=== PATIENT | female | born 1950 | race Caucasian/White ===

== ENCOUNTER → 2017-06-16 | Outpatient (CLI) | payer MEDICARE ==
--- NOTE | 2017-06-16 13:11 | US ---
EXAMINATION TYPE: US venous doppler duplex LE LT DATE OF EXAM: 06/16/2017 12:53 PM COMPARISON: NONE CLINICAL HISTORY: 67-year-old female with M52.561 Pain in right leg. SIDE PERFORMED: right TECHNIQUE: The lower extremity deep venous system is examined utilizing real time linear array sonog miles with graded compression, doppler sonography and color-flow sonography. VESSELS IMAGED: External Iliac Vein (EIV) Common Femoral Vein Deep Femoral Vein Greater Saphenous Vein * Femoral Vein Popliteal Vein Small Saphenous Vein * Proximal Calf Veins (* superficial vessels) Right Leg: Negative for DVT Bakers cyst measuring 5.1 x 1.8 x 4.7cm Results given to Toshia at office immediately following exam. IMPRESSION: 1. No evidence for DVT within the left lower extremity imaged from the groin to the upper calf. 2. Moderate-sized Harmon cyst.
--- NOTE | 2017-06-22 12:49 | US ---
EXAMINATION TYPE: US venous doppler duplex LE RT DATE OF EXAM: 06/16/2017 12:53 PM COMPARISON: NONE CLINICAL HISTORY: 67-year-old female with M52.561 Pain in right leg. SIDE PERFORMED: Right TECHNIQUE: The lower extremity deep venous system is examined utilizing real time linear array sonography with graded compression, doppler sonography and color-flow sonography. VESSELS IMAGED: External Iliac Vein (EIV) Common Femoral Vein Deep Femoral Vein Greater Saphenous Vein * Femoral Vein Popliteal Vein Small Saphenous Vein * Proximal Calf Veins (* superficial vessels) Right Leg: Negative for DVT Bakers cyst measuring 5.1 x 1.8 x 4.7cm Results given to Toshia at office immediately following exam. IMPRESSION: 1. No evidence for DVT within the right lower extremity imaged from the groin to the upper calf. 2. Moderate-sized Harmon cyst. MTDD
== END | disposition home or self-care (01) ==
LOC: RADUSWWP 12:08
PROVIDERS: ATTEND Nurse Practitioner Family
DX: M71.22 Synovial cyst of popliteal space [Baker], left knee (principal); Z88.2 Allergy status to sulfonamides; Z88.8 Allergy status to other drugs, medicaments and biological substances

== ENCOUNTER → 2017-11-16 | Outpatient (CLI) | payer MEDICARE, OTHER ==
[2017-11-16 10:08] LABS: HCT 42.6 % (34.0-46.0); HGB 13.6 gm/dL (11.4-16.0); MCH 29.5 pg (25.0-35.0); MCV 92.3 fL (80.0-100.0); Mean Platelet Volume 8.1; Platelet Count 193 k/uL (150-450); RBC 4.61 m/uL (3.80-5.40); RDW 13.8 % (11.5-15.5); WBC 6.5 k/uL (3.8-10.6)
[2017-11-16 10:18] LABS: Appearance,Urine Clear (Clear); Bilirubin,Urine Negative (Negative); Blood,Urine Negative (Negative); Color,Urine Yellow; Glucose,Urine (UA) Negative (Negative); Hyaline Casts,Urine 1 /lpf (0-2); Ketones,Urine Negative (Negative); Leukocyte Esterase,Urine Trace (Negative); Mucus,Urine Rare /hpf; Nitrite,Urine Negative (Negative); PH, Urine 5.5 (5.0-8.0); Protein,Urine Negative (Negative); RBC,Urine <1 /hpf (0-5); Specific Gravity,Urine 1.017 (1.001-1.035); Squamous Epithelial Cell,Urine 1 /hpf (0-4); WBC,Urine 1 /hpf (0-5)
[2017-11-16 10:27] LABS: Prothrombin Time 9.6 sec (9.0-12.0)
[2017-11-16 10:29] LABS: Partial Thromboplastin Time 21.9 sec (22.0-30.0)
[2017-11-16 10:30] LABS: Albumin 3.9 g/dL (3.5-5.0); Calcium 9.5 mg/dL (8.4-10.2); Potassium 5.1 mmol/L (3.5-5.1); Total Bilirubin 0.4 mg/dL (0.2-1.3); Total Protein 6.2 g/dL (6.3-8.2)
== END | disposition home or self-care (01) ==
LOC: LABWHC1 09:29
PROVIDERS: ATTEND Orthopaedic Surgery
DX: Z01.812 Encounter for preprocedural laboratory examination (principal); Z79.01 Long term (current) use of anticoagulants; Z01.818 Encounter for other preprocedural examination
CPT/HCPCS: 36415; 80053; 81001; 85027; 85610; 85730; 87070

== ENCOUNTER 2017-11-23 00:23 | Observation (INO) | payer MEDICARE, OTHER ==
[2017-11-23] MEDS ORDERED: SODIUM CHLORIDE 0.9% 1,000 ML IV STA ×2 (01:09)
[2017-11-23] MEDS ORDERED: PANTOPRAZOLE 40 MG/10 ML VIAL IVP STA (01:09)
[2017-11-23] MEDS ORDERED: ONDANSETRON 4 MG/2 ML VIAL IVP STA (01:09)
[2017-11-23 01:23] LABS: Appearance,Urine Clear (Clear); Basophils # (A) 0.1 k/uL (0-0.2); Basophils % (A) 1 %; Bilirubin,Urine Negative (Negative); Blood,Urine Negative (Negative); Color,Urine Colorless; Eosinophils # (A) 0.2 k/uL (0-0.7); Eosinophils % (A) 3 %; Glucose,Urine (UA) Negative (Negative); HCT 42.3 % (34.0-46.0); HGB 13.7 gm/dL (11.4-16.0); Ketones,Urine Negative (Negative); Leukocyte Esterase,Urine Negative (Negative); Lymphocytes # (A) 1.8 k/uL (1.0-4.8); Lymphocytes % (A) 29 %; MCH 29.8 pg (25.0-35.0); MCHC 32.5 g/dL (31.0-37.0); MCV 91.7 fL (80.0-100.0); Mean Platelet Volume 7.9; Monocytes # (A) 0.5 k/uL (0-1.0); Monocytes % (A) 8 %; Neutrophils # (A) 3.6 k/uL (1.3-7.7); Neutrophils % (A) 58 %; Nitrite,Urine Negative (Negative); PH, Urine 6.5 (5.0-8.0); Platelet Count 175 k/uL (150-450); Protein,Urine Negative (Negative); RBC 4.61 m/uL (3.80-5.40); RDW 13.6 % (11.5-15.5); Specific Gravity,Urine 1.002 (1.001-1.035); Urobilinogen,Urine <2.0 mg/dL (<2.0); WBC 6.2 k/uL (3.8-10.6)
[2017-11-23 01:30] LABS: ALT 21 U/L (9-52); AST 28 U/L (14-36); Albumin 3.9 g/dL (3.5-5.0); Alkaline Phosphatase 67 U/L (38-126); Amylase 110 U/L (30-110); Anion Gap 13 mmol/L; Blood Urea Nitrogen 8 mg/dL (7-17); Calcium 9.3 mg/dL (8.4-10.2); Carbon Dioxide 28 mmol/L (22-30); Chloride 101 mmol/L (98-107); Glucose 125 mg/dL (74-99); Lipase 81 U/L (23-300); Partial Thromboplastin Time 22.2 sec (22.0-30.0); Potassium 3.5 mmol/L (3.5-5.1); Sodium 142 mmol/L (137-145); Total Bilirubin 0.5 mg/dL (0.2-1.3); Total Protein 6.2 g/dL (6.3-8.2)
--- NOTE | 2017-11-23 01:43 | XR ---
EXAMINATION TYPE: XR chest 2V DATE OF EXAM: 11/23/2017 COMPARISON: NONE HISTORY: Abdominal pain and vomiting TECHNIQUE: Frontal and lateral views of the chest are obtained. FINDINGS: Heart and mediastinum are normal. There is a 1 cm density over the left midlung that is pr obably calcified granuloma. Diaphragm is normal. There is no heart failure. IMPRESSION: Calcified granuloma. Normal heart. No heart failure.
--- NOTE | 2017-11-23 01:44 | XR ---
EXAMINATION TYPE: XR KUB DATE OF EXAM: 11/23/2017 COMPARISON: NONE HISTORY: Abdominal pain TECHNIQUE: 2 views FINDINGS: Bowel gas pattern is normal. There is no sign of intestinal obstruction or pneumoperitoneum . Fecal pattern is normal. There are clips from cholecystectomy. IMPRESSION: Nonacute abdomen.
[2017-11-23] MEDS ORDERED: MORPHINE SULFATE 4 MG/ML SYRINGE IVP STA (01:49)
[2017-11-23] MEDS ORDERED: RX INFO: IV CONTRAST WAS GIVEN 1 EACH MISC MISCELLANE PRN (03:11)
[2017-11-23] MEDS ORDERED: MORPHINE SULFATE 4 MG/ML SYRINGE IVP ONE (03:15)
--- NOTE | 2017-11-23 04:03 | CT ---
EXAM: CT Abdomen and Pelvis With Intravenous Contrast CLINICAL HISTORY: Abdominal pain TECHNIQUE: Axial computed tomography images of the abdomen and pelvis with intravenous contrast. CTDI is 19.1, 21.3 mGy and DLP is 1528.4 mGy-cm. This CT exam was performed using one or more of the following dose reduction techniques: automated exposure control, adjustment of the mA and/or kV according to patient size, and/or use of iterative reconstruction technique. COMPARISON: No relevant prior studies available. FINDINGS: Lung bases: Hematoma within the left lower lobe. Heart: Coronary artery calcifications. ABDOMEN: Liver: Tomographic density within the left hepatic lobe which is too small to characterize. Gallbladder and bile ducts: Mild intra-and extra hepatic bile duct dilatation likely second prior cholecystectomy. Pancreas: Unremarkable. Spleen: Calcified granuloma within the spleen. Adrenals: Unremarkable. Kidneys and ureters: Unremarkable. Stomach and bowel: Post surgical changes within the colon with mild wall thickening of the ascending and proximal transverse colon. Noninflamed colonic diverticulosis. Tiny fat-containing umbilical hernia with nonobstructed small bowel extending into the defect. PELVIS: Appendix: Appendix is likely surgically absent. Bladder: Small amount of gas within the urinary bladder likely secondary to recent instrumentation. Reproductive: 14 mm cyst in the left ovary. ABDOMEN and PELVIS: Intraperitoneal space: Unremarkable. Bones/joints: Anterolisthesis of L5 on S1 segment and bilateral L5 pars defect. No acute fracture. No dislocation. Soft tissues: See above. Vasculature: Vascular calcifications. No abdominal aortic aneurysm. Lymph nodes: Unremarkable. IMPRESSION: Post surgical changes within the colon with mild wall thickening of the ascending and proximal transverse colon. Findings may be secondary to under distention versus a nonspecific colitis.
--- NOTE | 2017-11-23 04:13 | ED ---
Abdominal Pain HPI - General Chief Complaint: Abdominal Pain Stated Complaint: Abdominal Pain Time Seen by Provider: 11/23/17 00:31 Source: patient, RN notes reviewed, old records reviewed Mode of arrival: ambulatory Limitations: no limitations - History of Present Illness Initial Comments: This is a 67-year-old female presents emergency room chief complaint of abdominal pain, nausea vomiting and diarrhea. The symptoms started Wednesday evening. She reports that her stools been dark. She states that her pain is mainly in the epigastric region. Denies any shortness of breath or chest pain. Patient relates that she has had no fevers or chills. She's had a history of colitis in the past. She states that she feels "lousy". Patient reports no urinary symptoms. - Related Data Home Medications Medication Instructions Recorded Confirmed Levothyroxine Sodium [Synthroid] 112 mcg PO QAM 08/20/14 11/23/17 Lisinopril [Zestril] 10 mg PO DAILY@1700 08/20/14 11/23/17 Multivitamins, Thera [Multivitamin] 1 tab PO DAILY 08/20/14 11/23/17 amLODIPine [Norvasc] 10 mg PO DAILY@1700 08/20/14 11/23/17 Aspirin [Adult Low Dose Aspirin EC] 81 mg PO DAILY 11/18/17 11/23/17 Atorvastatin [Lipitor] 10 mg PO QAM 11/18/17 11/23/17 Cholecalciferol [Vitamin D3] 1,000 unit PO DAILY 11/18/17 11/23/17 Garlic 1 tab PO DAILY 11/18/17 11/23/17 HYDROcodone/APAP 7.5-325MG [[place] 1 tab PO TID PRN 11/18/17 11/23/17 7.5-325] Metoprolol Succinate (ER) [Toprol 50 mg PO QAM 11/18/17 11/23/17 XL] Calcium Carbonate [Calcium] 600 mg PO BID 11/23/17 11/23/17 Allergies Allergy/AdvReac Type Severity Reaction Status Date / Time Sulfa (Sulfonamide Allergy Unknown Rash/Hives Verified 11/23/17 10:20 Antibiotics) Review of Systems ROS Statement: Those systems with pertinent positive or pertinent negative responses have been documented in the HPI. ROS Other: All systems not noted in ROS Statement are negative. Past Medical History Past Medical History: Hypertension, Osteoarthritis (OA) Additional Past Medical History / Comment(s): CARPAL TUNNEL , ARTHRITIS KNEES AND HANDS, NEUROPATHY, HX OF POLYPS. History of Any Multi-Drug Resistant Organisms: None Reported Past Surgical History: Bariatric Surgery, Section, Cholecystectomy Additional Past Surgical History / Comment(s): X2, ANNELIESE LEG NERVE SURGERY, GASTRIC BYPASS. Past Anesthesia/Blood Transfusion Reactions: No Reported Reaction, Motion Sickness Additional Past Anesthesia/Blood Transfusion Reaction / Comment(s): HX OF BLOOD TRANSFUSIONS=NO REACTION Past Psychological History: Depression Smoking Status: Former smoker Past Alcohol Use History: Occasional Past Drug Use History: None Reported - Past Family History Father Family Medical History: Diabetes Mellitus, Hypertension Mother Family Medical History: Hypertension, Musculoskeletal Disorder, Neurologic Disorder Additional Family Medical History / Comment(s): Mother had parkinson's disease. General Exam - General Exam Comments Initial Comments: 67-year-old female. Alert and oriented. No acute distress. Limitations: no limitations General appearance: alert, in no apparent distress Head exam: Present: atraumatic, normocephalic, normal inspection Eye exam: Present: normal appearance, PERRL, EOMI. Absent: scleral icterus, conjunctival injection, periorbital swelling ENT exam: Present: normal exam, mucous membranes moist Neck exam: Present: normal inspection. Absent: tenderness, meningismus, lymphadenopathy Respiratory exam: Present: normal lung sounds bilaterally. Absent: respiratory distress, wheezes, rales, rhonchi, stridor Cardiovascular Exam: Present: regular rate, normal rhythm, normal heart sounds. Absent: systolic murmur, diastolic murmur, rubs, gallop, clicks GI/Abdominal exam: Present: soft, tenderness (Epigastric tenderness.), normal bowel sounds. Absent: distended, guarding, rebound, rigid Extremities exam: Present: normal inspection, full ROM, normal capillary refill. Absent: tenderness, pedal edema, joint swelling, calf tenderness Back exam: Present: normal inspection Neurological exam: Present: alert, oriented X3, CN II-XII intact Psychiatric exam: Present: normal affect, normal mood Skin exam: Present: warm, dry, intact, normal color. Absent: rash Course Vital Signs 11/23/17 11/23/17 11/23/17 00:24 02:50 03:46 Temperature 97.7 F 97.9 F Pulse Rate 85 88 91 Pulse Rate [ Pulse Oximetery ] Respiratory 18 20 18 Rate Blood Pressure 180/86 151/88 185/91 Blood Pressure [Right Arm] O2 Sat by Pulse 97 96 94 L Oximetry 11/23/17 11/23/17 11/23/17 04:44 05:39 06:42 Temperature 98.3 F Pulse Rate 90 88 88 Pulse Rate [ Pulse Oximetery ] Respiratory 18 18 18 Rate Blood Pressure 163/93 153/90 176/96 Blood Pressure [Right Arm] O2 Sat by Pulse 96 98 95 Oximetry 11/23/17 11/23/17 11/23/17 06:58 07:28 08:30 Temperature 98.8 F 98.1 F Pulse Rate 89 91 91 Pulse Rate [ 87 Pulse Oximetery ] Respiratory 18 14 16 Rate Blood Pressure 145/87 158/87 158/87 Blood Pressure 179/90 [Right Arm] O2 Sat by Pulse 97 96 92 L Oximetry Medical Decision Making - Medical Decision Making This is a 67-year-old female presents emergency room chief complaint of abdominal pain, nausea vomiting and diarrhea. The symptoms started Wednesday evening. She reports that her stools been dark. She states that her pain is mainly in the epigastric region. Surgical hisotry arabella Rou in Y surgery. Patient given IV fluids and labs obtained. Continued to complainof significant pain. Labs were reviewed and unremarkable. CT scan obtained. Evidence of coliits or incomplete distension. Patient informed of these results, continues to complain of significant discomort and nausea. Discussed case with Dr. Colón , whom will make final disposition. - Lab Data Result diagrams: 11/23/17 00:45 11/23/17 00:45 Lab Results 11/23/17 11/23/17 11/23/17 Range/Units 00:45 00:45 00:45 WBC 6.2 (3.8-10.6) k/uL RBC 4.61 (3.80-5.40) m/uL Hgb 13.7 (11.4-16.0) gm/dL Hct 42.3 (34.0-46.0) % MCV 91.7 (80.0-100.0) fL MCH 29.8 (25.0-35.0) pg MCHC 32.5 (31.0-37.0) g/dL RDW 13.6 (11.5-15.5) % Plt Count 175 (150-450) k/uL Neutrophils % 58 % Lymphocytes % 29 % Monocytes % 8 % Eosinophils % 3 % Basophils % 1 % Neutrophils # 3.6 (1.3-7.7) k/uL Lymphocytes # 1.8 (1.0-4.8) k/uL Monocytes # 0.5 (0-1.0) k/uL Eosinophils # 0.2 (0-0.7) k/uL Basophils # 0.1 (0-0.2) k/uL PT 10.0 (9.0-12.0) sec INR 1.0 (<1.2) APTT 22.2 (22.0-30.0) sec Sodium 142 (137-145) mmol/L Potassium 3.5 (3.5-5.1) mmol/L Chloride 101 (98-107) mmol/L Carbon Dioxide 28 (22-30) mmol/L Anion Gap 13 mmol/L BUN 8 (7-17) mg/dL Creatinine 0.70 (0.52-1.04) mg/dL Est GFR (CKD-EPI)AfAm >90 (>60 ml/min/1.73 sqM) Est GFR (CKD-EPI)NonAf >90 (>60 ml/min/1.73 sqM) Glucose 125 H (74-99) mg/dL Calcium 9.3 (8.4-10.2) mg/dL Total Bilirubin 0.5 (0.2-1.3) mg/dL AST 28 (14-36) U/L ALT 21 (9-52) U/L Alkaline Phosphatase 67 (38-126) U/L Total Protein 6.2 L (6.3-8.2) g/dL Albumin 3.9 (3.5-5.0) g/dL Amylase 110 (30-110) U/L Lipase 81 (23-300) U/L Urine Color Urine Appearance (Clear) Urine pH (5.0-8.0) Ur Specific [place] (1.001-1.035) Urine Protein (Negative) Urine Glucose (UA) (Negative) Urine Ketones (Negative) Urine Blood (Negative) Urine Nitrite (Negative) Urine Bilirubin (Negative) Urine Urobilinogen (<2.0) mg/dL Ur Leukocyte Esterase (Negative) Stool Occult Blood (Negative) 11/23/17 11/23/17 Range/Units 00:45 00:45 WBC (3.8-10.6) k/uL RBC (3.80-5.40) m/uL Hgb (11.4-16.0) gm/dL Hct (34.0-46.0) % MCV (80.0-100.0) fL MCH (25.0-35.0) pg MCHC (31.0-37.0) g/dL RDW (11.5-15.5) % Plt Count (150-450) k/uL Neutrophils % % Lymphocytes % % Monocytes % % Eosinophils % % Basophils % % Neutrophils # (1.3-7.7) k/uL Lymphocytes # (1.0-4.8) k/uL Monocytes # (0-1.0) k/uL Eosinophils # (0-0.7) k/uL Basophils # (0-0.2) k/uL PT (9.0-12.0) sec INR (<1.2) APTT (22.0-30.0) sec Sodium (137-145) mmol/L Potassium (3.5-5.1) mmol/L Chloride (98-107) mmol/L Carbon Dioxide (22-30) mmol/L Anion Gap mmol/L BUN (7-17) mg/dL Creatinine (0.52-1.04) mg/dL Est GFR (CKD-EPI)AfAm (>60 ml/min/1.73 sqM) Est GFR (CKD-EPI)NonAf (>60 ml/min/1.73 sqM) Glucose (74-99) mg/dL Calcium (8.4-10.2) mg/dL Total Bilirubin (0.2-1.3) mg/dL AST (14-36) U/L ALT (9-52) U/L Alkaline Phosphatase (38-126) U/L Total Protein (6.3-8.2) g/dL Albumin (3.5-5.0) g/dL Amylase (30-110) U/L Lipase (23-300) U/L Urine Color Colorless Urine Appearance Clear (Clear) Urine pH 6.5 (5.0-8.0) Ur Specific [place] 1.002 (1.001-1.035) Urine Protein Negative (Negative) Urine Glucose (UA) Negative (Negative) Urine Ketones Negative (Negative) Urine Blood Negative (Negative) Urine Nitrite Negative (Negative) Urine Bilirubin Negative (Negative) Urine Urobilinogen <2.0 (<2.0) mg/dL Ur Leukocyte Esterase Negative (Negative) Stool Occult Blood Negative (Negative) 11/23/17 04:12 EKG performed at 0 50 she was normal sinus rhythm, normal EKG noted. Noticed this elevation or T-wave inversion. Ventricular rate 77 bpm.. Intervals 188. QRS ration 90. QT QTc is 46/459 ms. - Radiology Data Radiology results: report reviewed Disposition Clinical Impression: Abdominal pain Disposition: ADMITTED IP TO THIS HOSP Condition: Stable Is patient prescribed a controlled substance at d/c from ED?: No When asked, does pt state using other controlled substances?: No If prescribed controlled substance>3 days was MAPS reviewed?: No If opioid is for acute pain is fill amount 7 days or less?: No If Rx opioid, was Start Talking consent form obtained?: No Time of Disposition: 13:20
[2017-11-23] MEDS ORDERED: ONDANSETRON 4 MG/2 ML VIAL IVP PRN (06:53)
[2017-11-23] MEDS ORDERED: NALOXONE 0.4 MG/ML 1 ML VIAL IV PRN (06:53)
[2017-11-23] MEDS ORDERED: MORPHINE SULFATE 4 MG/ML SYRINGE IV STA (06:53)
[2017-11-23] MEDS ORDERED: HYDROcodone/APAP 7.5-325MG 1 EACH TAB PO PRN (06:55)
[2017-11-23] MEDS ORDERED: SODIUM CHLORIDE 0.9% 1,000 ML IV SCH (07:00)
[2017-11-23] MEDS ORDERED: ASPIRIN 81 MG PO SCH (09:00)
[2017-11-23] MEDS ORDERED: METOPROLOL SUCCINATE (ER) 50 MG TAB.ER.24H PO SCH (09:00)
[2017-11-23] MEDS ORDERED: FAMOTIDINE 20 MG TAB PO SCH (09:00)
[2017-11-23] MEDS ORDERED: LEVOTHYROXINE 112 MCG TAB PO ONE (09:00)
[2017-11-23] MEDS ORDERED: CHOLECALCIFEROL 1,000 UNIT TAB PO SCH (09:00)
[2017-11-23] MEDS ORDERED: ATORVASTATIN 10 MG TAB PO SCH (09:00)
--- NOTE | 2017-11-23 10:05 | P.CONS ---
History of Present Illness - Reason for Consult Consult date: 11/23/17 abdominal pain colitis Requesting physician: Chandra Raphael - History of Present Illness 67-year-old female with a history of Yoselyn-en-Y gastric bypass performed at [facility] several years ago presents with intractable nausea vomiting abdominal discomfort that started Wednesday. Patient had a whiskey-type drink on night but does not drink on a daily basis. Over the weekend she had persistent nausea with multiple nonbloody emesis a few looser stools yesterday. Dark but not black or red in color. Diffuse abdominal discomfort in the midepigastrium midabdomen. CT of the abdomen and pelvis reported some mild wall thickening of the ascending and proximal transverse colon may be secondary to under distention versus a nonspecific colitis. Denies fever chills hematemesis hematochezia melena. No weight loss. She is scheduled for knee surgery next Wednesday. Last emesis was earlier this morning after drinking some clear liquids. White count 6.2. Hemoglobin 13.7. Platelet 175. INR 1.0. BUN 8. Creatinine 0.7. LFTs lipase within normal limits. Stool occult blood negative. No aspirin and NSAIDs. Endoscopic history: 1. Colonoscopy July 2014 screening for neoplasia diverticulosis of the colon no evidence of diverticula or strictures polyps or cancer. 2. No recent EGD has been several years. Review of Systems Constitutional: Denies fever, chills, sweats, weight gain, or loss. HEENT: Negative for migraines, blurred vision or loss, earaches, drainage, tinnitus, oral mucosal lesions, dysphagia, or odynophagia. CARDIAC: Negative for chest pain, arrhythmias, or palpitation. RESPIRATORY: Negative for shortness of breath, hemoptysis, cough, or sputum production. GI: See HPI for pertinent findings. : Negative for hematuria, urgency, frequency, polyuria, or dysuria. GYNc: Negative vaginal discharge. MUSCULOSKELETAL: Negative for muscle aches, swelling, arthritis, and arthralgias. NEUROLOGIC: Negative for stroke or TIA. ENDOCRINE: Negative for thyroid problems. SKIN: Negative for rash or itching. PSYCHIATRIC: Negative history for depression and anxiety Past Medical History Past Medical History: Hyperlipidemia, Hypertension, Osteoarthritis (OA), Thyroid Disorder Additional Past Medical History / Comment(s): Diverticular disease, neuropathy bilateral hands and feet, NIDDM type II on oral medications until bariatric surgery with weight loss, hypothyroid, past gout in feet, bilateral carpal tunnel syndrome, arthritis bilateral knees and hands-L knee worse and is to have L total knee replacement next week. History of Any Multi-Drug Resistant Organisms: None Reported Past Surgical History: Bariatric Surgery, Section, Cholecystectomy Additional Past Surgical History / Comment(s): Yoselyn-en- Y, surgery on bilateral legs to release nerves, colonoscopies with last one done 2014, x 2 Past Anesthesia/Blood Transfusion Reactions: No Reported Reaction, Motion Sickness Additional Past Anesthesia/Blood Transfusion Reaction / Comm: HX OF BLOOD TRANSFUSIONS=NO REACTION Smoking Status: Former smoker - Past Family History Father Family Medical History: Diabetes Mellitus, Hypertension Mother Family Medical History: Hypertension, Musculoskeletal Disorder, Neurologic Disorder Additional Family Medical History / Comment(s): Mother had parkinson's disease. Medications and Allergies Home Medications Medication Instructions Recorded Confirmed Type Levothyroxine Sodium [Synthroid] 112 mcg PO QAM 08/20/14 11/23/17 History Lisinopril [Zestril] 10 mg PO HS 08/20/14 11/23/17 History Multivitamins, Thera [Multivitamin] 1 each PO DAILY 08/20/14 11/23/17 History amLODIPine [Norvasc] 10 mg PO HS 08/20/14 11/23/17 History Aspirin [Adult Low Dose Aspirin EC] 81 mg PO DAILY 11/18/17 11/23/17 History Atorvastatin [Lipitor] 10 mg PO QAM 11/18/17 11/23/17 History Cholecalciferol [Vitamin D3] 1,000 unit PO DAILY 11/18/17 11/23/17 History Garlic 1 tab PO DAILY 11/18/17 11/23/17 History HYDROcodone/APAP 7.5-325MG [[place] 1 tab PO Q8H PRN 11/18/17 11/23/17 History 7.5-325] Metoprolol Succinate (ER) [Toprol 50 mg PO QAM 11/18/17 11/23/17 History XL] Allergies Allergy/AdvReac Type Severity Reaction Status Date / Time Sulfa (Sulfonamide Allergy Unknown Rash/Hives Verified 11/18/17 14:23 Antibiotics) Physical Exam Vitals: Vital Signs Temp Pulse Resp BP Pulse Ox 11/23/17 08:30 98.8 F 91 14 158/87 96 11/23/17 07:28 98.8 F 91 14 158/87 96 11/23/17 06:58 89 18 145/87 97 11/23/17 06:42 88 18 176/96 95 11/23/17 05:39 98.3 F 88 18 153/90 98 11/23/17 04:44 90 18 163/93 96 11/23/17 03:46 97.9 F 91 18 185/91 94 L 11/23/17 02:50 88 20 151/88 96 11/23/17 00:24 97.7 F 85 18 180/86 97 Intake and Output 11/22/17 11/23/17 11/23/17 22:59 06:59 14:59 Intake Total 1800 Balance 1800 Intake: Amount of Fluid Infused ( 1800 ml) Other: Voiding Method Toilet Weight 92.986 kg General appearance: The patient is alert, oriented, in no acute distress. HET: Head is normocephalic and atraumatic. Pupils are equal and reactive. Oropharynx is clear without lesions. Neck: Supple without lymphadenopathy. Trachea midline. Heart: S1 S2. Regular rate and rhythm. Lungs: No crackles or wheezes are heard. Abdomen: Soft, mild midepigastric tenderness, nondistended with bowel sounds. No peritoneal signs. No palpable organomegaly or masses. Extremities: Normal skin color and turgor. No cyanosis, rash, ulceration, clubbing, or edema. Radial and pedal pulses are 2/4 bilaterally. Neurological: No focal deficits. Strength and sensation are grossly intact. Results CBC & Chem 7: 11/23/17 00:45 11/23/17 00:45 Labs: Abnormal Lab Results - Last 24 Hours (Table) 11/23/17 Range/Units 00:45 Glucose 125 H (74-99) mg/dL Total Protein 6.2 L (6.3-8.2) g/dL CT scan - abdomen: report reviewed (Dr. Valdez) Assessment and Plan (1) Abdominal pain Narrative/Plan: Intractable nausea vomiting abdominal pain 4 days possible gastritis possible peptic ulcer disease with an underlying history of Yoselyn-en-Y gastric bypass. Current Visit: Yes Status: Acute Code(s): R10.9 - UNSPECIFIED ABDOMINAL PAIN SNOMED Code(s): 98331904 Plan: 1. EGD. 2. Protonix 40 mg daily. 3. She was advised to abstain from alcohol. 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 The patient has indicated understanding and acceptance of the risks and procedures discussed. Thank you for this kind referral and the opportunity to participate in the care of your patient. This consultation was discussed with Dr. Valdez. The impression and plan of care have been directed as dictated.
[2017-11-23] MEDS ORDERED: MULTIVITAMINS, THERA 1 EACH TAB PO SCH (12:00)
[2017-11-23] MEDS: MORPHINE SULFATE 4 MG/ML SYRINGE IV PRN ×2 (12:12→15:23)
[2017-11-23 13:16] VITALS: BMI 33.0
[2017-11-23] MEDS ORDERED: LIDOCAINE 1% INJ 10MG/ML (20 ML MDV) ONE (14:32)
[2017-11-23] MEDS ORDERED: MIDAZOLAM 2 MG/2 ML VIAL ONE (14:32)
[2017-11-23] MEDS ORDERED: PROPOFOL 10 MG/ML 20 ML VIAL IV ONE (14:32)
[2017-11-23] MEDS ORDERED: IV FLUID CONTINUATION 950 ML IV ONE (14:34)
--- NOTE | 2017-11-23 15:02 | P.PCN ---
Date of Procedure: 11/23/17 Procedure(s) Performed: Procedure: Esophagogastroduodenoscopy and biopsy. Preoperative diagnosis: Nausea and vomiting. Postoperative diagnosis: 1. S/P Yoselyn-en-Y gastric bypass surgery with no obvious pathology. 2. Biopsies obtained from the gastric remnant and esophagus. Preparation sedation: Was provided by anesthesia. 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 Patient had a whiskey-type drink the day before and she does not drink on a daily basis. For the following two days she had persistent nausea with multiple nonbloody emesis a few looser stools the day before admission. Dark but not black or red in color. Diffuse abdominal discomfort in the mid-epigastrium mid-abdomen. CT of the abdomen and pelvis reported some mild wall thickening of the ascending and proximal transverse colon may be secondary to under distention versus a nonspecific colitis. Denies fever, chills, hematemesis, hematochezia or melena. No weight loss. She is scheduled for knee surgery the week from today. Last emesis was earlier this morning after drinking some clear liquids. White count 6.2. Hemoglobin 13.7. Platelet 175. INR 1.0. BUN 8. Creatinine 0.7. LFTs lipase within normal limits. Stool occult blood negative. No aspirin and NSAIDs. Endoscopic history: 1. Colonoscopy July 2014 screening for neoplasia diverticulosis of the colon no evidence of diverticula or strictures polyps or cancer. 2. No recent EGD, last has been several years. The details are summarized in the history and physical and dictated consultation and progress notes. Procedure: With the patient on her left lateral decubitus position and after informed consent and adequate sedation, I passed the Olympus-GIF 160 video upper endoscope through the cricopharyngeus down the esophagus. GE junction was around 38 cm from the incisors. The esophagus did not show any obvious esophagitis or complicated reflux disease or other pathology. The endoscope was then passed into the gastric remnant. The patient had prior gastric bypass surgery. No obvious abnormalities were seen in the gastric remnant. The small intestine was examined for significant distance with no abnormal findings noted. I obtained biopsies from the gastric remnant and esophagus before the endoscope was withdrawn. The patient tolerated the procedure well. Plan: The patient was reassured. Will allow clear liquid diet and make further plans based on her course. Will continue to follow with you with interest.
[2017-11-23 15:20] VITALS: BP 144/75; PULSE 75; RESP 18; TEMP 98.9
--- NOTE | 2017-11-23 16:14 | P.HPIM ---
History of Present Illness 67-year-old female with history of Yoselyn-en-Y bypass surgery came in with complaints of left upper quadrant abdominal pain sharp in nature 8/10 in severity now for stress-induced in severity. CAT scan of the abdomen was obtained which showed some nonspecific colitis changes which are not impressive. These changes are found in the ascending colon and proximal transverse colon although her symptoms are not in the above-mentioned and stomach site her symptoms are in the left upper quadrant. Patient underwent upper GI endoscopy which did not show any significant abnormality. Patient is cleared for discharge from gastroenterology perspective. Etiology of her abdominal pain is unknown her abdominal pain did improve patient was asked to take as needed Tylenol for pain. Will be discharged to follow with primary care physician as an outpatient. Lipase is essentially within normal limits. Patient had nonbloody emesis and few loose stools which completely resolved at this time. Review of Systems REVIEW OF SYSTEMS: CONSTITUTIONAL: No fever, no malaise, no fatigue. HEENT: No recent visual problems or hearing problems. Denied any sore throat. CARDIOVASCULAR: No chest pain, orthopnea, PND, no palpitations, no syncope. PULMONARY: No shortness of breath, no cough, no hemoptysis. GASTROINTESTINAL: No diarrhea, no nausea, no vomiting, NEUROLOGICAL: No headaches, no weakness, no numbness. HEMATOLOGICAL: Denies any bleeding or petechiae. GENITOURINARY: Denies any burning micturition, frequency, or urgency. MUSCULOSKELETAL/RHEUMATOLOGICAL: Denies any joint pain, swelling, or any muscle pain. ENDOCRINE: Denies any polyuria or polydipsia. The rest of the 14-point review of systems is negative. Past Medical History Past Medical History: Hypertension, Osteoarthritis (OA) Additional Past Medical History / Comment(s): CARPAL TUNNEL , ARTHRITIS KNEES AND HANDS, NEUROPATHY, HX OF POLYPS. History of Any Multi-Drug Resistant Organisms: None Reported Past Surgical History: Bariatric Surgery, Section, Cholecystectomy Additional Past Surgical History / Comment(s): X2, ANNELIESE LEG NERVE SURGERY, GASTRIC BYPASS. Past Anesthesia/Blood Transfusion Reactions: No Reported Reaction, Motion Sickness Additional Past Anesthesia/Blood Transfusion Reaction / Comment(s): HX OF BLOOD TRANSFUSIONS=NO REACTION Past Psychological History: Depression Smoking Status: Former smoker Past Alcohol Use History: Occasional Past Drug Use History: None Reported - Past Family History Father Family Medical History: Diabetes Mellitus, Hypertension Mother Family Medical History: Hypertension, Musculoskeletal Disorder, Neurologic Disorder Additional Family Medical History / Comment(s): Mother had parkinson's disease. Medications and Allergies Home Medications Medication Instructions Recorded Confirmed Type Levothyroxine Sodium [Synthroid] 112 mcg PO QAM 08/20/14 11/23/17 History Lisinopril [Zestril] 10 mg PO DAILY@1700 08/20/14 11/23/17 History Multivitamins, Thera [Multivitamin] 1 tab PO DAILY 08/20/14 11/23/17 History amLODIPine [Norvasc] 10 mg PO DAILY@1700 08/20/14 11/23/17 History Aspirin [Adult Low Dose Aspirin EC] 81 mg PO DAILY 11/18/17 11/23/17 History Atorvastatin [Lipitor] 10 mg PO QAM 11/18/17 11/23/17 History Cholecalciferol [Vitamin D3] 1,000 unit PO DAILY 11/18/17 11/23/17 History Garlic 1 tab PO DAILY 11/18/17 11/23/17 History HYDROcodone/APAP 7.5-325MG [[place] 1 tab PO TID PRN 11/18/17 11/23/17 History 7.5-325] Metoprolol Succinate (ER) [Toprol 50 mg PO QAM 11/18/17 11/23/17 History XL] Calcium Carbonate [Calcium] 600 mg PO BID 11/23/17 11/23/17 History Allergies Allergy/AdvReac Type Severity Reaction Status Date / Time Sulfa (Sulfonamide Allergy Unknown Rash/Hives Verified 11/23/17 10:20 Antibiotics) Physical Exam Vitals: Vital Signs Temp Pulse Pulse Resp BP BP Pulse Ox 11/23/17 15:13 98.9 F 75 18 144/75 96 11/23/17 11:05 135/82 11/23/17 08:30 98.1 F 91 87 16 158/87 179/90 92 L 11/23/17 07:28 98.8 F 91 14 158/87 96 11/23/17 06:58 89 18 145/87 97 11/23/17 06:42 88 18 176/96 95 11/23/17 05:39 98.3 F 88 18 153/90 98 11/23/17 04:44 90 18 163/93 96 11/23/17 03:46 97.9 F 91 18 185/91 94 L 11/23/17 02:50 88 20 151/88 96 11/23/17 00:24 97.7 F 85 18 180/86 97 Intake and Output 11/23/17 11/23/17 11/23/17 06:59 14:59 22:59 Intake Total 2049 Balance 2049 Intake: IV 250 Amount of Fluid Infused ( 1800 ml) Other: Voiding Method Toilet # Voids 2 # Bowel Movements 0 Weight 92.986 kg 92.986 kg PHYSICAL EXAMINATION: GENERAL: The patient is alert and oriented x3, not in any acute distress. Well developed, well nourished. HEENT: Pupils are round and equally reacting to light. EOMI. No scleral icterus. No conjunctival pallor. Normocephalic, atraumatic. No pharyngeal erythema. No thyromegaly. CARDIOVASCULAR: S1 and S2 present. No murmurs, rubs, or gallops. PULMONARY: Chest is clear to auscultation, no wheezing or crackles. ABDOMEN: Soft, nontender, nondistended, normoactive bowel sounds. No palpable organomegaly. MUSCULOSKELETAL: No joint swelling or deformity. EXTREMITIES: No cyanosis, clubbing, or pedal edema. NEUROLOGICAL: Gross neurological examination did not reveal any focal deficits. SKIN: No rashes. Results CBC & Chem 7: 11/23/17 00:45 11/23/17 00:45 Labs: Abnormal Lab Results - Last 24 Hours (Table) 11/23/17 Range/Units 00:45 Glucose 125 H (74-99) mg/dL Total Protein 6.2 L (6.3-8.2) g/dL Thrombosis Risk Factor Assmnt - Choose All That Apply Any of the Below Risk Factors Present?: Yes Each Factor Represents 1 point: Obesity (BMI >25) Other Risk Factors: Yes Each Risk Factor Represents 2 Points: Age 61-74 years Other congenital or acquired thrombophilia - If yes, enter type in comment: No Thrombosis Risk Factor Assessment Total Risk Factor Score: 3 Thrombosis Risk Factor Assessment Level: Moderate Risk Assessment and Plan Plan: -Abdominal pain etiology unclear upper GI endoscopy did not show any gastritis. Patient will be discharged today her symptoms improved patient will follow with PCP and gastroneurology as an outpatient -Hypertension -History of bariatric surgery in the past -Depression and seasonal affective disorder -Hyperlipidemia -Hypothyroidism For her chronic medical problems patient will be resumed and continued on home medications without any changes
--- NOTE | 2017-11-23 16:15 | P.DS ---
Providers Date of admission: 11/23/17 06:53 Attending physician: Chandra Raphael Consults: 11/23/17 06:56 Consult Physician Routine Consulting Provider: Corbin Valdez Consult Reason/Comments: abdominal pain/colitis Do you want consulting provider notified?: Yes Primary care physician: Imelda Sharma [facility] Course: Please refer to my HPI Patient Condition at Discharge: Stable Plan - Discharge Summary Discharge Rx Participant: No New Discharge Prescriptions: No Action amLODIPine [Norvasc] 10 mg PO DAILY@1700 Multivitamins, Thera [Multivitamin] 1 tab PO DAILY Lisinopril [Zestril] 10 mg PO DAILY@1700 Levothyroxine Sodium [Synthroid] 112 mcg PO QAM Metoprolol Succinate (ER) [Toprol XL] 50 mg PO QAM HYDROcodone/APAP 7.5-325MG [[place] 7.5-325] 1 tab PO TID PRN PRN Reason: Pain Garlic 1 tab PO DAILY Cholecalciferol [Vitamin D3] 1,000 unit PO DAILY Atorvastatin [Lipitor] 10 mg PO QAM Aspirin [Adult Low Dose Aspirin EC] 81 mg PO DAILY Calcium Carbonate [Calcium] 600 mg PO BID Discharge Medication List Levothyroxine Sodium [Synthroid] 112 mcg PO QAM 08/20/14 [History] Lisinopril [Zestril] 10 mg PO DAILY@1700 08/20/14 [History] Multivitamins, Thera [Multivitamin] 1 tab PO DAILY 08/20/14 [History] amLODIPine [Norvasc] 10 mg PO DAILY@1700 08/20/14 [History] Aspirin [Adult Low Dose Aspirin EC] 81 mg PO DAILY 11/18/17 [History] Atorvastatin [Lipitor] 10 mg PO QAM 11/18/17 [History] Cholecalciferol [Vitamin D3] 1,000 unit PO DAILY 11/18/17 [History] Garlic 1 tab PO DAILY 11/18/17 [History] HYDROcodone/APAP 7.5-325MG [[place] 7.5-325] 1 tab PO TID PRN 11/18/17 [History] Metoprolol Succinate (ER) [Toprol XL] 50 mg PO QAM 11/18/17 [History] Calcium Carbonate [Calcium] 600 mg PO BID 11/23/17 [History] Follow up Appointment(s)/Referral(s): Imelda Beckham III, MD [Primary Care Provider] - 3 Days Discharge Disposition: HOME SELF-CARE
[2017-11-23] MEDS ORDERED: LISINOPRIL 10 MG TAB PO SCH (21:00)
[2017-11-23] MEDS ORDERED: amLODIPine 10 MG TAB PO SCH (21:00)
[2017-11-24] MEDS ORDERED: LEVOTHYROXINE 112 MCG TAB PO SCH (06:30)
[2017-11-24] MEDS ORDERED: PANTOPRAZOLE 40 MG TABLET PO SCH (07:30)
== END 2017-11-23 16:31 | disposition home or self-care (01) ==
LOC: EC 00:23 → 4MS4W 06:53
PROVIDERS: ADMIT Hospitalist; ATTEND Hospitalist
DX: R10.13 Epigastric pain (principal); R11.2 Nausea with vomiting, unspecified; R19.7 Diarrhea, unspecified; I10 Essential (primary) hypertension; F32.9 Major depressive disorder, single episode, unspecified; E78.5 Hyperlipidemia, unspecified; E03.9 Hypothyroidism, unspecified; F39 Unspecified mood [affective] disorder; M19.90 Unspecified osteoarthritis, unspecified site; M19.042 Primary osteoarthritis, left hand; M19.041 Primary osteoarthritis, right hand; M17.0 Bilateral primary osteoarthritis of knee; G62.9 Polyneuropathy, unspecified; Z98.84 Bariatric surgery status; Z86.010 Personal history of colon polyps; Z90.49 Acquired absence of other specified parts of digestive tract; Z88.2 Allergy status to sulfonamides; Z79.82 Long term (current) use of aspirin; Z79.899 Other long term (current) drug therapy; Z79.890 Hormone replacement therapy; Z87.891 Personal history of nicotine dependence; Z83.3 Family history of diabetes mellitus; Z82.0 Family history of epilepsy and other diseases of the nervous system; E66.9 Obesity, unspecified; Z68.33 Body mass index [BMI] 33.0-33.9, adult; Z87.19 Personal history of other diseases of the digestive system
CPT/HCPCS: 99285; 96374; 96375 ×3; 96376 ×4; 96361 ×8; 36415; 93005; 88305; 80053; 82150; 83690; 85025; 85610; 85730; 82272; 81003; 71046; 74018; 74177; 43239; G0378; J2250; J2270; J2405; J2001; J2704; C9113; Q9967

== ENCOUNTER 2017-11-30 10:37 | Inpatient (IN) | payer MEDICARE ==
[~2017-11-30 10:37] MED LIST: ACETAMINOPHEN TAB 500 MG TAB PO ONE; DEXAMETHASONE SOD PHOSPHATE 10 MG/ML 1 ML VIAL IV ONE; HYDROmorphone 0.5 MG/0.5 ML SYRINGE IVP PRN; MELOXICAM 7.5 MG TAB PO ONE; MORPHINE SULFATE 2 MG/ML SYRINGE IV PRN; ONDANSETRON 4 MG/2 ML VIAL IVP ONE; ONDANSETRON 4 MG/2 ML VIAL IVP PRN; ROPIVACAINE 246.25 MG, EPINEPHrine 0.5 MG, KETOROLAC 30 MG, cloNIDine HCL/PF 80 MCG, WA... MISCELLANE ONE; TRANEXAMIC ACID 1,000 MG in SODIUM CHLORIDE 0.9% 50 ML IVPB ONE; VANCOMYCIN 1,500 MG in SODIUM CHLORIDE 0.9% 250 ML IVPB NR; ceFAZolin IN SWFI 2 GM/20 ML SYRINGE IVP ONE
[2017-11-30] MEDS: LACTATED RINGERS 1,000 ML IV SCH ×2 (11:18→20:12)
[2017-11-30] MEDS ORDERED: LIDOCAINE 1% 20 ML VIAL (10MG/ML) FOR IV START INTRADERMA ONE (11:19)
[2017-11-30] MEDS ORDERED: ONDANSETRON 4 MG/2 ML VIAL ONE (11:33)
[2017-11-30 12:07] LABS: Glucose,Whole Blood 123 mg/dL (75-99)
[2017-11-30] MEDS ORDERED: MIDAZOLAM 2 MG/2 ML VIAL ONE ×2 (12:25→13:40)
[2017-11-30] MEDS ORDERED: fentaNYL (PF) 50 MCG/ML 2 ML AMP ONE ×2 (12:26→13:40)
[2017-11-30] MEDS ORDERED: fentaNYL (PF) 50 MCG/ML 2 ML AMP IVP ONE (12:44)
[2017-11-30] MEDS ORDERED: ROPIVACAINE 1,100 MG, SODIUM CHLORIDE 0.9% 330 ML MISCELLANE PRN ×2 (13:06)
--- NOTE | 2017-11-30 13:08 | P.ONQ ---
Anesthesiology Proc Note - PNB - Peripheral Nerve Block Performed Left Adductor Canal Infusion Time Out Performed: Yes Procedure Start Time: 12:43 Procedure Stop Time: 12:57 Indication: Requested by physician Specifically requested for management of pain by : Roland Coleman Sedation Type: Sedate with meaningful contact maintained Preparation: Sterile Prep Position: Supine Catheter: Indwelling Needle Types: Other (see comment) (pujunk) Needle Size: 100mm (4") Needle Gauge: 20 Technique: Ultrasound Injectate: 0.5% Ropivacaine (see comment for volume) (20) Blood Aspirated: No Pain Paresthesia on Injection Noted: No Resistance on Injection: Normal Events: Uneventful and Well Tolerated
[2017-11-30] MEDS ORDERED: SODIUM CHLORIDE 0.9% 100 ML BAG ONE (13:40)
[2017-11-30] MEDS ORDERED: diphenhydrAMINE 50 MG/ML 1 ML VIAL ONE (13:40)
[2017-11-30] MEDS ORDERED: TRANEXAMIC ACID 1,000 MG/10 ML VIAL ONE (13:40)
[2017-11-30] MEDS ORDERED: ONDANSETRON 4 MG/2 ML VIAL IVP PRN (13:43)
[2017-11-30] MEDS ORDERED: HYDROcodone/APAP 7.5-325MG 1 EACH TAB PO PRN (13:43)
[2017-11-30] MEDS ORDERED: MAGNESIUM HYDROXIDE 2,400 MG/10 ML CUP PO PRN (13:43)
[2017-11-30] MEDS ORDERED: HYDROmorphone 0.5 MG/0.5 ML SYRINGE IVP PRN ×4 (13:43)
[2017-11-30] MEDS ORDERED: DIAZEPAM 5 MG TAB PO PRN ×2 (13:43)
[2017-11-30] MEDS ORDERED: NA PHOS,M-B/NA PHOS,DI-BA 133 ML ENEMA RECTAL PRN (13:43)
[2017-11-30] MEDS ORDERED: BISACODYL 10 MG SUPP RECTAL PRN (13:43)
[2017-11-30] MEDS ORDERED: NALOXONE 0.4 MG/ML 1 ML VIAL IV PRN (13:43)
[2017-11-30] MEDS ORDERED: ceFAZolin 3,000 MG in SODIUM CHLORIDE 0.9% IRRIGATIO 3,000 ML IRRIGATION ONE (14:40)
--- NOTE | 2017-11-30 14:54 | P.OP ---
Date of Procedure: 11/30/17 Preoperative Diagnosis: Severe osteoarthritis left knee Postoperative Diagnosis: Severe osteoarthritis left knee Procedure(s) Performed: Left total knee arthroplasty Implants: [employer]hew Oxinium femoral component size 5, left Bush [employer]hew Ashley II left nonporous tibial baseplate size 4 [employer]hew size 11 mm Legion XLPE dished articular insert, size 3-4 [employer]hew Ashley II resurfacing patellar component, 32 mm All components were cemented using Clementina bone cement.. The articulation is Oxinium on polyethylene. Anesthesia: spinal Surgeon: Roland Coleman Antenna Design Engineer #1: Lilo Butler Estimated Blood Loss (ml): 50 Pathology: other (Bone and cartilage) Condition: stable Disposition: PACU Indications for Procedure: After failure of conservative treatment we discussed the surgical and nonsurgical treatment options at length. Patient wishes to proceed with a total knee arthroplasty. Complications specific to this procedure were discussed at length, including but not limited to infection, bleeding, stiffness , and nerve injury. Patient is aware of all these complications and informed consent was obtained Operative Findings: The operative findings are consistent with severe osteoarthritis of the left knee Description of Procedure: Patient was seen in the preoperative area consent was reviewed and operative site was marked with a skin marker. An adductor canal pain catheter was placed by anesthesia in the preoperative area. Patient was then brought to the operating room and given preoperative antibiotics intravenously. A spinal anesthetic was administered by the anesthesia department. A tourniquet was placed on the upper thigh and the lower extremity was prepped and draped in usual sterile fashion. A gram of transexamic acid was given. A universal timeout was then performed which confirmed the patient's name, surgical site, ALLERGIES, and consent. The lower extremity was then exsanguinated and tourniquet was inflated to 250 mmHg. A standard and anterior midline approach to the knee was performed. The skin and subcutaneous tissue was dissected down to the patellar tendon. A medial parapatellar arthrotomy was then performed. The knee was then extended, the patellar was everted, and the knee was again flexed. Anterior horns of both menisci were excised, and a release was performed to the posterior medial aspect of the knee. On gross visual inspection, there was complete loss of articular cartilage in the medial and patellofemoral joint spaces. There was also significant cartilage damage in the lateral compartment. There were multiple periarticular osteophytes which were then removed with a Ronguer. The femoral canal was then opened with the appropriate drill, and the intramedullary femoral cutting guide was then placed and set for 4 of valgus. The distal femoral cutting block was then pinned in place, and the distal femur was then cut. The cutting block was then removed and the cut was checked for flatness. Next, the sizing guide was then placed and set for 3 external rotation based off of the epicondylar axis and Whitesides line. After the femur was sized, the appropriate 4-in-1 cutting block was then pinned in place. The anterior condyles were cut without notching. The posterior and chamfer cuts were performed while protecting the collateral ligaments. The cutting block was then removed, and the femoral canal was plugged with autologous bone. Attention was then directed to the tibia. The remaining ACL was removed with a Ronguer, and the tibia was then gently subluxed forward with a large bent knee retractor. Any remaining menisci was excised. The posterior lateral corner was cauterized in order to cauterize the lateral geniculate artery. The extra medullary tibial cutting guide was then placed, set for the appropriate rotation , slope, and depth of resection. The proximal tibia cutting guide was then pinned in place. Proximal tibia was then cut and sized. Next trials were then placed with the appropriate-sized insert. The knee was able to fully extend and flex to 130 and was stable throughout all range of motion. The knee was then extended, patella everted. Patella was then measured, and then using an osteotomy guide, the patella was cut at the appropriate level. The patella was then measured and drilled and the patella trial was then placed. The knee was then taken through range of motion with the patella trial and the patella tracked normally. The knee was then extended patella trial was then removed and the patella was everted. Knee was then flexed and lug holes were drilled through the femoral trial and the femoral trial was then removed. The tibial was then exposed, and the tibial broach guide was then pinned in place after it was set for the appropriate rotation to allow for the most coverage without overhang. The tibia was then reamed and broached. The cut surfaces of bone were then irrigated with pulsatile lavage. The posterior structures were injected with the ropivacaine solution. The knee was also irrigated with Irrisept solution. The components were then opened, the cement was mixed, and the components were then cemented in place. The cement was allowed to harden with the knee in full extension. While the cement was hardening, the remaining soft tissues were then injected with a ropivacaine solution, which consisted of 246.25 mg of ropivacaine, 0.5 mg of epinephrine, 30 mg of Toradol, 80 g of clonidine, and 48.45 mL of sterile water, for a total of 100 mL of fluid injected. After the cemented hardened. The tourniquet was released, and hemostasis was obtained. A second gram of transexamic acid was given. The knee was again irrigated. The knee was again taken through range of motion and found to be stable throughout all range of motion of 0-130 , and the patella tracked normally. The fascia was then closed with #2 strata fix suture. The subcutaneous tissue was closed with 3-0 Vicryl and 3-0 strata fix. Dermabond glue was used for the skin and placed with the knee in flexion. The patient was placed in a sterile silver dressing. Patient was then transferred to recovery room in stable condition. The assistant restaurant general manager KIMBERLY Aguirre was required due the complexity surgery and the need for a skilled surgical attendant. She assisted in positioning, draping, retraction, and closure of the wound.
[2017-11-30 15:51] LABS: Glucose,Whole Blood 105 mg/dL (75-99)
[2017-11-30] MEDS ORDERED: LORazepam 2 MG/ML INJ IV ONE (15:52)
--- NOTE | 2017-11-30 15:54 | XR ---
EXAMINATION TYPE: XR knee limited LT DATE OF EXAM: 11/30/2017 COMPARISON: NONE TECHNIQUE: Two views submitted HISTORY: Post op FINDINGS: There is a prosthetic knee in near anatomic alignment. There is soft tissue edema and emphysema. IMPRESSION: 1. Postoperative change. Appears in near-anatomic alignment
[2017-11-30] MEDS ORDERED: LACTATED RINGERS 1,000 ML IV ONE (15:59)
[2017-11-30] MEDS ORDERED: ceFAZolin IN SWFI 2 GM/20 ML SYRINGE IVP SCH (16:00)
[2017-11-30] MEDS: SODIUM CHLORIDE 0.9% 1,000 ML IV SCH (20:21)
[2017-11-30] MEDS: ASPIRIN 325 MG TAB PO SCH (20:22)
[2017-11-30] MEDS: SENNOSIDES-DOCUSATE SODIUM 1 EACH TAB PO SCH (20:22)
[2017-11-30] MEDS: hydrOXYzine PAMOATE 25 MG CAP PO PRN (20:23)
[2017-11-30] MEDS: HYDROcodone/APAP 7.5-325MG 1 EACH TAB PO PRN (20:23)
[2017-11-30] MEDS ORDERED: VANCOMYCIN 1,500 MG in SODIUM CHLORIDE 0.9% 250 ML IVPB ONE (23:00)
[2017-12-01] MEDS: hydrOXYzine PAMOATE 25 MG CAP PO PRN ×2 (02:38→23:11)
[2017-12-01] MEDS: HYDROcodone/APAP 7.5-325MG 1 EACH TAB PO PRN ×5 (02:39→23:11)
[2017-12-01] MEDS: SODIUM CHLORIDE 0.9% 1,000 ML IV SCH ×2 (04:01→20:40)
[2017-12-01] MEDS: LEVOTHYROXINE 112 MCG TAB PO SCH (06:17)
--- NOTE | 2017-12-01 07:13 | P.PN ---
Progress Note - Text Progress Note Date: 12/01/17 Postoperative day # 1 status post left total knee arthroplasty, under spinal anesthesia, and adductor canal catheter placed for postoperative analgesia, currently at ropivacaine 0.2% 8 mL per hour and continuous infusion, patient using oral pain medication for breakthrough pain. Assessment and plan= Acute postoperative pain, adductor canal catheter for pain control, we'll continue the same management.
[2017-12-01] MEDS: CALCIUM CARBONATE 500 MG CHEWABLE PO SCH ×2 (07:39→21:24)
[2017-12-01] MEDS: ASPIRIN 325 MG TAB PO SCH ×2 (07:39→21:24)
[2017-12-01] MEDS: ATORVASTATIN 10 MG TAB PO SCH (07:39)
[2017-12-01] MEDS: CHOLECALCIFEROL 1,000 UNIT TAB PO SCH (07:40)
[2017-12-01] MEDS: MELOXICAM 7.5 MG TAB PO SCH (07:40)
[2017-12-01] MEDS: METOPROLOL SUCCINATE (ER) 50 MG TAB.ER.24H PO SCH (07:40)
[2017-12-01] MEDS: MULTIVITAMINS, THERA 1 EACH TAB PO SCH (07:41)
[2017-12-01 07:42] LABS: Basophils # (A) 0.1 k/uL (0-0.2); Basophils % (A) 1 %; Eosinophils # (A) 0.2 k/uL (0-0.7); Eosinophils % (A) 4 %; HCT 36.5 % (34.0-46.0); HGB 11.8 gm/dL (11.4-16.0); Lymphocytes # (A) 0.9 k/uL (1.0-4.8); Lymphocytes % (A) 14 %; MCH 29.7 pg (25.0-35.0); MCHC 32.3 g/dL (31.0-37.0); MCV 91.8 fL (80.0-100.0); Mean Platelet Volume 8.2; Monocytes # (A) 0.5 k/uL (0-1.0); Monocytes % (A) 7 %; Neutrophils # (A) 4.7 k/uL (1.3-7.7); Neutrophils % (A) 73 %; Platelet Count 165 k/uL (150-450); RBC 3.98 m/uL (3.80-5.40); RDW 13.6 % (11.5-15.5); WBC 6.5 k/uL (3.8-10.6)
--- NOTE | 2017-12-01 09:01 | P.DS ---
Providers Date of admission: 11/30/17 10:37 Expected date of discharge: 12/01/17 Attending physician: Roland Coleman Consults: 11/30/17 13:43 Consult Physician Routine Consulting Provider: Imelda Beckham III Consult Reason/Comments: medical management Do you want consulting provider notified?: Yes 11/30/17 16:40 Consult Physician Routine Consulting Provider: Chandra Raphael Consult Reason/Comments: medical management Do you want consulting provider notified?: Yes Primary care physician: Imelda Beckham - Discharge Diagnosis(es) (1) Primary osteoarthritis of left knee Current Visit: Yes Status: Acute (2) S/P total knee arthroplasty Current Visit: Yes Status: Acute Hospital Course: This is a 67-year-old female with known history of degenerative arthritis of the left knee. The patient presents for evaluation. After discussion and consideration patient elects to proceed with total knee arthroplasty. The patient is seen preoperatively by Dr. Coleman and medically cleared for surgery by their primary care physician. Patient is admitted to [facility] on 11/30/2017 for total knee arthroplasty. The procedures performed without complication or sequelae. The patient is doing well postoperatively. Labs and vital signs are stable on day of discharge. On day of discharge patient's knee incision is healing well. There is minimal erythema. There is no drainage noted at this time. There is minimal soft tissue swelling to the knee. Patient has full foot and ankle motion without difficulty or pain. Neurovascular status to the left lower extremity is intact. Patient is discharged home in good condition. Please see med rec for accurate list of home medications. Plan - Discharge Summary Discharge Rx Participant: No New Discharge Prescriptions: New Aspirin 325 mg PO BID #60 tab HYDROcodone/APAP 7.5-325MG [[place] 7.5-325] 1 - 2 tab PO Q4-6H PRN #90 tab PRN Reason: Pain Sennosides [Senokot] 1 tab PO BID #60 tablet No Action amLODIPine [Norvasc] 10 mg PO DAILY@1700 Multivitamins, Thera [Multivitamin] 1 tab PO DAILY Lisinopril [Zestril] 10 mg PO DAILY@1700 Levothyroxine Sodium [Synthroid] 112 mcg PO QAM Metoprolol Succinate (ER) [Toprol XL] 50 mg PO QAM HYDROcodone/APAP 7.5-325MG [[place] 7.5-325] 1 tab PO TID PRN PRN Reason: Pain Garlic 1 tab PO DAILY Cholecalciferol [Vitamin D3] 1,000 unit PO DAILY Atorvastatin [Lipitor] 10 mg PO QAM Aspirin [Adult Low Dose Aspirin EC] 81 mg PO DAILY Calcium Carbonate [Calcium] 600 mg PO BID Discharge Medication List Levothyroxine Sodium [Synthroid] 112 mcg PO QAM 08/20/14 [History] Lisinopril [Zestril] 10 mg PO DAILY@169908/20/14 [History] Multivitamins, Thera [Multivitamin] 1 tab PO DAILY 08/20/14 [History] amLODIPine [Norvasc] 10 mg PO DAILY@169908/20/14 [History] Aspirin [Adult Low Dose Aspirin EC] 81 mg PO DAILY 11/18/17 [History] Atorvastatin [Lipitor] 10 mg PO QAM 11/18/17 [History] Cholecalciferol [Vitamin D3] 1,000 unit PO DAILY 11/18/17 [History] Garlic 1 tab PO DAILY 11/18/17 [History] HYDROcodone/APAP 7.5-325MG [[place] 7.5-325] 1 tab PO TID PRN 11/18/17 [History] Metoprolol Succinate (ER) [Toprol XL] 50 mg PO QAM 11/18/17 [History] Calcium Carbonate [Calcium] 600 mg PO BID 11/23/17 [History] Aspirin 325 mg PO BID #60 tab 12/01/17 [Rx] HYDROcodone/APAP 7.5-325MG [[place] 7.5-325] 1 - 2 tab PO Q4-6H PRN #90 tab [Rx] Sennosides [Senokot] 1 tab PO BID #60 tablet 12/01/17 [Rx] Follow up Appointment(s)/Referral(s): Imelda Beckham III, MD [Primary Care Provider] - 1 Week Roland Coleman DO [Doctor of Osteopathic Medicine] - 2 Weeks Ambulatory/Diagnostic Orders: Continuous Passive Motion (CPM) Machine [DME.AMB1] Time Frame: 3 Weeks, Location : Determined By Patient Discharge Disposition: HOME WITH HOME HEALTH SERVICES
--- NOTE | 2017-12-01 15:41 | P.CONS ---
History of Present Illness - Reason for Consult Consult date: 12/01/17 Medical management of hypertension, hyperlipidemia and other medical proble - Chief Complaint Left knee severe osteoarthritis. Admitted for elective surgery - History of Present Illness Patient is a 67-year-old female with a known history of hypertension, hyperlipidemia and hypothyroidism as well as osteoarthritis admitted to the hospital for left total knee arthroplasty as an elective procedure. Patient tolerated the procedure very well. Currently patient is on nerve block. Pain is well controlled. No complaints of chest pain or shortness of breath. No nausea vomiting or abdominal pain. No headache or dizziness or lightheadedness. No increased leg swelling or worsening pain. No fever no chills. Review of Systems Constitutional: Patient denies any fever or chills . No generalized weakness or weight loss. Abdomen: Patient denied nausea vomiting and diarrhea and abdominal pain. Cardiovascular: Patient denies any chest pain or short of breath no palpitations. Respiratory: patient denied any cough is from production. No shortness of breath Neurologic: Patient denied any numbness or tingling headache. Musculoskeletal: Patient denies any complaints of joint swelling or deformity. Skin: Negative Psychiatric: Negative Endocrine: No heat or cold intolerance. No recent weight gain. Genitourinary: No dysuria or hematuria. All other 14 point ROS negative except the above Past Medical History Past Medical History: Hypertension, Osteoarthritis (OA) Additional Past Medical History / Comment(s): CARPAL TUNNEL , ARTHRITIS KNEES AND HANDS, NEUROPATHY, HX OF POLYPS. History of Any Multi-Drug Resistant Organisms: None Reported Past Surgical History: Bariatric Surgery, Section, Cholecystectomy Additional Past Surgical History / Comment(s): X2, ANNELIESE LEG NERVE SURGERY, GASTRIC BYPASS. Past Anesthesia/Blood Transfusion Reactions: No Reported Reaction, Motion Sickness Additional Past Anesthesia/Blood Transfusion Reaction / Comm: HX OF BLOOD TRANSFUSIONS=NO REACTION Past Psychological History: Depression Additional Psychological History / Comment(s): SEASONAL AFFECTIVE DISORDER-pt states this was not a problem this past winter. Pt resides with her spouse for whom she is caregiver. He is in a wheelchair. 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 Pt uses no assistive devices. She drives. Smoking Status: Former smoker Past Alcohol Use History: Occasional Additional Past Alcohol Use History / Comment(s): Pt started smoking in 1967 and quit May of 1989. Past Drug Use History: None Reported - Past Family History Mother Family Medical History: No Reported History Father Family Medical History: Diabetes Mellitus, Hypertension Medications and Allergies Home Medications Medication Instructions Recorded Confirmed Type Levothyroxine Sodium [Synthroid] 112 mcg PO QAM 08/20/14 11/30/17 History Lisinopril [Zestril] 10 mg PO DAILY@1700 08/20/14 11/30/17 History Multivitamins, Thera [Multivitamin] 1 tab PO DAILY 08/20/14 11/30/17 History amLODIPine [Norvasc] 10 mg PO DAILY@1700 08/20/14 11/30/17 History Aspirin [Adult Low Dose Aspirin EC] 81 mg PO DAILY 11/18/17 11/30/17 History Atorvastatin [Lipitor] 10 mg PO QAM 11/18/17 11/30/17 History Cholecalciferol [Vitamin D3] 1,000 unit PO DAILY 11/18/17 11/30/17 History Garlic 1 tab PO DAILY 11/18/17 11/30/17 History HYDROcodone/APAP 7.5-325MG [[place] 1 tab PO TID PRN 11/18/17 11/30/17 History 7.5-325] Metoprolol Succinate (ER) [Toprol 50 mg PO QAM 11/18/17 11/30/17 History XL] Calcium Carbonate [Calcium] 600 mg PO BID 11/23/17 11/30/17 History Aspirin 325 mg PO BID #60 tab 12/01/17 Rx HYDROcodone/APAP 7.5-325MG [[place] 1 - 2 tab PO Q4-6H PRN #90 tab 12/01/17 Rx 7.5-325] Sennosides [Senokot] 1 tab PO BID #60 tablet 12/01/17 Rx Allergies Allergy/AdvReac Type Severity Reaction Status Date / Time Sulfa (Sulfonamide Allergy Unknown Rash/Hives Verified 11/30/17 15:24 Antibiotics) Physical Exam Vitals: Vital Signs Temp Pulse Resp BP Pulse Ox 12/01/17 06:50 100.8 F H 63 16 142/82 97 12/01/17 03:53 18 12/01/17 01:03 98.2 F 74 16 129/73 93 L 11/30/17 23:23 16 11/30/17 20:27 98.3 F 84 16 116/70 93 L 11/30/17 18:30 83 111/57 97 11/30/17 18:15 90 118/59 99 11/30/17 18:00 88 118/56 99 11/30/17 17:45 88 136/82 96 11/30/17 17:15 80 144/92 95 11/30/17 17:00 83 135/87 95 11/30/17 16:45 97.7 F 84 18 175/75 99 11/30/17 16:30 80 18 120/64 94 L 11/30/17 16:15 81 18 122/62 95 11/30/17 16:00 79 16 126/63 95 11/30/17 15:45 80 16 121/67 94 L 11/30/17 15:32 97.6 F 82 16 150/66 98 11/30/17 13:00 76 18 119/72 97 11/30/17 10:55 98.5 F 85 18 132/81 95 Intake and Output 11/30/17 12/01/17 12/01/17 22:59 06:59 14:59 Intake Total 100 1020 Balance 100 1020 Intake: IV 100 Intake, IV Titration 770 Amount Sodium Chloride 0.9% 1, 520 000 ml @ 65 mls/hr IV . [id number] [facility] Rx#:[id number] Vancomycin 1,500 mg In 250 Sodium Chloride 0.9% 250 ml @ 125 mls/hr IVPB ONCE NR Rx#:[id number] Oral 250 Other: Voiding Method Toilet Toilet # Voids 1 1 PHYSICAL EXAMINATION: Patient is lying in the bed comfortably, no acute distress, awake alert and oriented.. HEENT: Normocephalic. Neck is supple. Pupils reactive. Nostrils clear. Oral cavity is moist. Ears reveal no drainage. Neck reveals no JVD, carotid bruits, or thyromegaly. CHEST EXAMINATION: Trachea is central. Symmetrical expansion. Lung [place] clear to auscultation and percussion. CARDIAC: Normal S1, S2 with no gallops. No murmurs ABDOMEN: Soft. Bowel sounds normal. No organomegaly. No abdominal bruits. Extremities: reveal no edema. Left knee surgical site is intact. No clubbing or cyanosis Neurologically awake, alert, oriented x3 with well-coordinated movements. No focal deficits noted Skin: No rash or skin lesions. Psychiatric: Coperative. Nonsuicidal Musculoskeletal: No joint swelling or deformity. Left knee decreased range of motion Results CBC & Chem 7: 12/01/17 06:21 Labs: Abnormal Lab Results - Last 24 Hours (Table) 11/30/17 11/30/17 12/01/17 Range/Units 11:15 15:48 06:21 Lymphocytes # 0.9 L (1.0-4.8) k/uL POC Glucose (mg/dL) 123 H 105 H (75-99) mg/dL Assessment and Plan Assessment: Severe left knee osteoarthritis status post left knee total arthroplasty Hypertension controlled with home medications Hyperlipidemia Hypothyroidism Previous history of gastric bypass surgery Neuropathy bilateral hands nondiabetic Carpal tunnel syndrome history Previous history of smoking Seasonal affective disorder DVT prophylaxis Plan: Patient will be continued on pain management and bowel regimen as well as incentive spirometry. Currently on nerve block and Mcgraws for pain management. Continue the home medications for blood pressure control. Otherwise continue the home medications and will follow up closely. Monitor H&H and encouraged ambulation. Further recommendations based on the clinical course. Thank you for your consult. Time with Patient: Greater than 30
[2017-12-01] MEDS ORDERED: LISINOPRIL 10 MG TAB PO SCH (17:00)
[2017-12-01] MEDS ORDERED: amLODIPine 10 MG TAB PO SCH (17:00)
[2017-12-01 18:51] LABS: Appearance,Urine Clear (Clear); Bilirubin,Urine Negative (Negative); Blood,Urine Negative (Negative); Color,Urine Yellow; Glucose,Urine (UA) Negative (Negative); Ketones,Urine Negative (Negative); Leukocyte Esterase,Urine Negative (Negative); Nitrite,Urine Negative (Negative); PH, Urine 6.5 (5.0-8.0); Protein,Urine Negative (Negative); Specific Gravity,Urine 1.013 (1.001-1.035)
[2017-12-01] MEDS: LACTATED RINGERS 1,000 ML IV SCH (20:40)
--- NOTE | 2017-12-01 21:05 | XR ---
EXAMINATION: XR chest 2V DATE AND TIME: 12/01/2017 7:10 PM ORDERING PROVIDER: Lynne Carias CLINICAL INDICATION: fever TECHNIQUE: PA and lateral COMPARISON: 11/23/2017 DESCRIPTION: The lungs are clear. The pleural spaces are negative. The cardiac silhouette is mild-moderately enlarged. The mediastinal and pleural silhouettes are unremarkable. The skeletal structures are intact without focal findings. The soft tissues are unremarkable. IMPRESSION: NO ACUTE PROCESS.
[2017-12-01] MEDS: SENNOSIDES-DOCUSATE SODIUM 1 EACH TAB PO SCH (21:22)
[2017-12-02] MEDS: HYDROcodone/APAP 7.5-325MG 1 EACH TAB PO PRN (04:20)
[2017-12-02] MEDS: hydrOXYzine PAMOATE 25 MG CAP PO PRN ×2 (04:21→09:22)
[2017-12-02] MEDS: LEVOTHYROXINE 112 MCG TAB PO SCH (06:05)
--- NOTE | 2017-12-02 06:21 | P.PN ---
Progress Note - Text Progress Note Date: 12/02/17 67-year-old male status post left total knee arthroplasty postop day 2. VAS 4/ 10 patient is ambulating well taking when necessary [place] 2 tablets a day. Patient is to be discharged home today we'll continue with On-Q pump at current settings.
[2017-12-02 07:33] VITALS: BP 150/94; PULSE 96; RESP 14; TEMP 98.8
[2017-12-02] MEDS ORDERED: HYDROcodone/APAP 10-325MG 1 EACH TAB PO PRN ×2 (07:51)
[2017-12-02] MEDS: ATORVASTATIN 10 MG TAB PO SCH (09:20)
[2017-12-02] MEDS: CALCIUM CARBONATE 500 MG CHEWABLE PO SCH (09:20)
[2017-12-02] MEDS: ASPIRIN 325 MG TAB PO SCH (09:20)
[2017-12-02] MEDS: MELOXICAM 7.5 MG TAB PO SCH (09:21)
[2017-12-02] MEDS: METOPROLOL SUCCINATE (ER) 50 MG TAB.ER.24H PO SCH (09:21)
[2017-12-02] MEDS: CHOLECALCIFEROL 1,000 UNIT TAB PO SCH (09:21)
[2017-12-02] MEDS: MULTIVITAMINS, THERA 1 EACH TAB PO SCH (13:02)
== END 2017-12-02 13:42 | disposition home health service (06) | DRG 470 ==
LOC: 2ORMAIN 10:37 → 3SUR 15:37
PROVIDERS: ADMIT Orthopaedic Surgery; ATTEND Orthopaedic Surgery
PROC: 0SRD069 Replacement of Left Knee Joint with Oxidized Zirconium on Polyethylene Synthetic Substitute, Cemented, Open Approach (ICD-10-PCS; principal; 2017-11-30 13:45)
DX: M17.0 Bilateral primary osteoarthritis of knee (principal); I10 Essential (primary) hypertension; G89.18 Other acute postprocedural pain; G56.00 Carpal tunnel syndrome, unspecified upper limb; E78.5 Hyperlipidemia, unspecified; E03.9 Hypothyroidism, unspecified; E11.42 Type 2 diabetes mellitus with diabetic polyneuropathy; F32.9 Major depressive disorder, single episode, unspecified; G89.4 Chronic pain syndrome; R26.9 Unspecified abnormalities of gait and mobility; F39 Unspecified mood [affective] disorder; M10.9 Gout, unspecified; Z98.84 Bariatric surgery status; Z87.891 Personal history of nicotine dependence; Z90.49 Acquired absence of other specified parts of digestive tract; Z86.010 Personal history of colon polyps; Z88.2 Allergy status to sulfonamides; Z79.82 Long term (current) use of aspirin; Z79.899 Other long term (current) drug therapy; Z79.890 Hormone replacement therapy; Z82.49 Family history of ischemic heart disease and other diseases of the circulatory system; Z83.3 Family history of diabetes mellitus; Z81.8 Family history of other mental and behavioral disorders; Z82.3 Family history of stroke; Z84.89 Family history of other specified conditions
CPT/HCPCS: 71046; 81003; 85025; 87086; 88300

== ENCOUNTER 2018-02-16 16:08 | Emergency (ER) | payer MEDICARE, OTHER ==
[2018-02-16 16:18] VITALS: RESP 18
[2018-02-16] MEDS ORDERED: SODIUM CHLORIDE 0.9% 1,000 ML IV STA (16:28)
[2018-02-16] MEDS ORDERED: SODIUM CHLORIDE 0.9% 500 ML IV STA (16:28)
[2018-02-16 17:04] LABS: Basophils # (A) 0.1 k/uL (0-0.2); Basophils % (A) 1 %; Eosinophils # (A) 0.2 k/uL (0-0.7); Eosinophils % (A) 3 %; HCT 39.5 % (34.0-46.0); HGB 12.4 gm/dL (11.4-16.0); Lymphocytes # (A) 1.9 k/uL (1.0-4.8); Lymphocytes % (A) 26 %; MCH 27.9 pg (25.0-35.0); MCHC 31.4 g/dL (31.0-37.0); MCV 88.8 fL (80.0-100.0); Mean Platelet Volume 7.6; Monocytes # (A) 0.5 k/uL (0-1.0); Monocytes % (A) 7 %; Neutrophils # (A) 4.4 k/uL (1.3-7.7); Neutrophils % (A) 61 %; Platelet Count 232 k/uL (150-450); RBC 4.45 m/uL (3.80-5.40); RDW 13.8 % (11.5-15.5); WBC 7.3 k/uL (3.8-10.6)
[2018-02-16 17:18] LABS: ALT 27 U/L (9-52); AST 40 U/L (14-36); Albumin 3.4 g/dL (3.5-5.0); Alkaline Phosphatase 85 U/L (38-126); Amylase 49 U/L (30-110); Anion Gap 9 mmol/L; Blood Urea Nitrogen 12 mg/dL (7-17); Calcium 8.7 mg/dL (8.4-10.2); Carbon Dioxide 28 mmol/L (22-30); Chloride 106 mmol/L (98-107); Glucose 139 mg/dL (74-99); Lipase 138 U/L (23-300); Potassium 3.6 mmol/L (3.5-5.1); Sodium 143 mmol/L (137-145); Total Bilirubin 0.3 mg/dL (0.2-1.3); Total Protein 5.9 g/dL (6.3-8.2)
--- NOTE | 2018-02-16 17:31 | ED ---
Alcohol HPI - General Chief Complaint: Alcohol Stated Complaint: ETOH Time Seen by Provider: 02/16/18 16:16 Source: patient, EMS, RN notes reviewed Mode of arrival: EMS Limitations: no limitations - History of Present Illness Initial Comments: This a 67-year-old female presents emergency Department via EMS from home chief complaint of pain, alcohol use. Patient states that she ran out of her [place] because she overtook it secondary to right hip and knee pain. She states that she has 5 more days to her next refill pain medication. Patient states that she drank much whiskey today and her called EMS secondary to her pain and alcohol use. Patient states she does not normally use alcohol. Patient denies any abdominal pain including nausea, vomiting, diarrhea constipation. Denies any chest pain or shortness breath. She states her hip and knee pain are chronic - Related Data Home Medications Medication Instructions Recorded Confirmed Levothyroxine Sodium [Synthroid] 112 mcg PO QAM 08/20/14 02/16/18 Lisinopril [Zestril] 10 mg PO DAILY@1700 08/20/14 02/16/18 Multivitamins, Thera [Multivitamin 1 tab PO DAILY 08/20/14 02/16/18 (formulary)] amLODIPine [Norvasc] 10 mg PO DAILY@1700 08/20/14 02/16/18 Atorvastatin [Lipitor] 10 mg PO QAM 11/18/17 02/16/18 Cholecalciferol [Vitamin D3] 1,000 unit PO DAILY 11/18/17 02/16/18 Garlic 1 tab PO DAILY 11/18/17 02/16/18 Metoprolol Succinate (ER) [Toprol 50 mg PO QAM 11/18/17 02/16/18 XL] Calcium Carbonate [Calcium] 600 mg PO BID 11/23/17 02/16/18 Aspirin [Adult Low Dose Aspirin EC] 81 mg PO DAILY 02/16/18 02/16/18 Hydrocodone/Acetaminophen [[place] 1 tab PO Q4HR PRN 02/16/18 02/16/18 7.5-325] Allergies Allergy/AdvReac Type Severity Reaction Status Date / Time Sulfa (Sulfonamide Allergy Unknown Rash/Hives Verified 02/16/18 17:00 Antibiotics) Review of Systems ROS Statement: Those systems with pertinent positive or pertinent negative responses have been documented in the HPI. ROS Other: All systems not noted in ROS Statement are negative. Past Medical History Past Medical History: Hypertension, Osteoarthritis (OA) Additional Past Medical History / Comment(s): CARPAL TUNNEL , ARTHRITIS KNEES AND HANDS, NEUROPATHY, HX OF POLYPS. History of Any Multi-Drug Resistant Organisms: None Reported Past Surgical History: Bariatric Surgery, Section, Cholecystectomy Additional Past Surgical History / Comment(s): X2, ANNELIESE LEG NERVE SURGERY, GASTRIC BYPASS. Past Anesthesia/Blood Transfusion Reactions: No Reported Reaction, Motion Sickness Additional Past Anesthesia/Blood Transfusion Reaction / Comment(s): HX OF BLOOD TRANSFUSIONS=NO REACTION Past Psychological History: Depression Smoking Status: Former smoker Past Alcohol Use History: Occasional Past Drug Use History: None Reported - Past Family History Mother Family Medical History: No Reported History Father Family Medical History: Diabetes Mellitus, Hypertension General Exam Limitations: no limitations General appearance: alert, in no apparent distress Head exam: Present: atraumatic, normocephalic, normal inspection Eye exam: Present: normal appearance, PERRL, EOMI. Absent: scleral icterus, conjunctival injection, periorbital swelling ENT exam: Present: normal exam, normal oropharynx, mucous membranes moist Neck exam: Present: normal inspection, full ROM. Absent: tenderness, meningismus, lymphadenopathy Respiratory exam: Present: normal lung sounds bilaterally. Absent: respiratory distress, wheezes, rales, rhonchi, stridor Cardiovascular Exam: Present: regular rate, normal rhythm, normal heart sounds. Absent: systolic murmur, diastolic murmur, rubs, gallop, clicks GI/Abdominal exam: Present: soft, normal bowel sounds. Absent: distended, tenderness, guarding, rebound, rigid Back exam: Absent: CVA tenderness (R), CVA tenderness (L) Neurological exam: Present: alert, oriented X3, CN II-XII intact, reflexes normal. Absent: motor sensory deficit Skin exam: Present: warm, dry, intact, normal color. Absent: rash Course Vital Signs 02/16/18 16:16 Temperature 98.2 F Pulse Rate 87 Respiratory 18 Rate Blood Pressure 146/83 O2 Sat by Pulse 94 L Oximetry Medical Decision Making - Medical Decision Making 67-year-old female presented from for chronic pain, alcohol use today. Patient will be discharged to in the room who accepts responsibility the patient. Patient had lab work which is unremarkable. Patient will be advised to contact her physician tomorrow for pain medication she will not be be prescribed any pain meds. She can use [id number] Tylenol Motrin. - Lab Data Result diagrams: 02/16/18 16:54 02/16/18 16:54 Lab Results 02/16/18 02/16/18 Range/Units 16:54 16:54 WBC 7.3 (3.8-10.6) k/uL RBC 4.45 (3.80-5.40) m/uL Hgb 12.4 (11.4-16.0) gm/dL Hct 39.5 (34.0-46.0) % MCV 88.8 (80.0-100.0) fL MCH 27.9 (25.0-35.0) pg MCHC 31.4 (31.0-37.0) g/dL RDW 13.8 (11.5-15.5) % Plt Count 232 (150-450) k/uL Neutrophils % 61 % Lymphocytes % 26 % Monocytes % 7 % Eosinophils % 3 % Basophils % 1 % Neutrophils # 4.4 (1.3-7.7) k/uL Lymphocytes # 1.9 (1.0-4.8) k/uL Monocytes # 0.5 (0-1.0) k/uL Eosinophils # 0.2 (0-0.7) k/uL Basophils # 0.1 (0-0.2) k/uL Sodium 143 (137-145) mmol/L Potassium 3.6 (3.5-5.1) mmol/L Chloride 106 (98-107) mmol/L Carbon Dioxide 28 (22-30) mmol/L Anion Gap 9 mmol/L BUN 12 (7-17) mg/dL Creatinine 0.69 (0.52-1.04) mg/dL Est GFR (CKD-EPI)AfAm >90 (>60 ml/min/1.73 sqM) Est GFR (CKD-EPI)NonAf >90 (>60 ml/min/1.73 sqM) Glucose 139 H (74-99) mg/dL Calcium 8.7 (8.4-10.2) mg/dL Total Bilirubin 0.3 (0.2-1.3) mg/dL AST 40 H (14-36) U/L ALT 27 (9-52) U/L Alkaline Phosphatase 85 (38-126) U/L Total Protein 5.9 L (6.3-8.2) g/dL Albumin 3.4 L (3.5-5.0) g/dL Amylase 49 (30-110) U/L Lipase 138 (23-300) U/L Disposition Clinical Impression: Alcoholic intoxication, Chronic joint pain Disposition: HOME SELF-CARE Condition: Stable Instructions: Alcohol Intoxication (ED) Additional Instructions: Please return to the Emergency Department if symptoms worsen or any other concerns. Is patient prescribed a controlled substance at d/c from ED?: No Referrals: Imelda Beckham III, MD [Primary Care Provider] - 1-2 days Time of Disposition: 18:53
[2018-02-16] MEDS ORDERED: HYDROcodone/APAP 7.5-325MG 1 EACH TAB PO ONE (18:54)
[2018-02-16 19:10] VITALS: BP 136/72; PULSE 85; TEMP 97.6
== END 2018-02-16 19:09 | disposition home or self-care (01) ==
LOC: EC 16:08
DX: G89.29 Other chronic pain (principal); M25.561 Pain in right knee; M25.551 Pain in right hip; F10.129 Alcohol abuse with intoxication, unspecified; I10 Essential (primary) hypertension; M17.0 Bilateral primary osteoarthritis of knee; M19.041 Primary osteoarthritis, right hand; M19.042 Primary osteoarthritis, left hand; Z87.891 Personal history of nicotine dependence; Z79.82 Long term (current) use of aspirin; Z79.899 Other long term (current) drug therapy; Z88.2 Allergy status to sulfonamides
CPT/HCPCS: 36415; 80053; 82075; 82150; 83690; 85025; 96360; 96361; 99283

== ENCOUNTER → 2018-03-21 | Outpatient (CLI) | payer MEDICARE, OTHER ==
[2018-03-21 08:55] LABS: Partial Thromboplastin Time 22.1 sec (22.0-30.0); Prothrombin Time 10.2 sec (9.0-12.0)
[2018-03-21 09:07] LABS: Appearance,Urine Clear (Clear); Bilirubin,Urine Negative (Negative); Blood,Urine Negative (Negative); Color,Urine Yellow; Glucose,Urine (UA) Negative (Negative); Ketones,Urine Negative (Negative); Leukocyte Esterase,Urine Negative (Negative); Nitrite,Urine Negative (Negative); Protein,Urine Trace (Negative); Specific Gravity,Urine 1.019 (1.001-1.035); Urobilinogen,Urine <2.0 mg/dL (<2.0)
[2018-03-21 09:19] LABS: ALT 19 U/L (9-52); AST 40 U/L (14-36); Albumin 3.9 g/dL (3.5-5.0); Alkaline Phosphatase 99 U/L (38-126); Anion Gap 9 mmol/L; Blood Urea Nitrogen 12 mg/dL (7-17); Calcium 9.2 mg/dL (8.4-10.2); Carbon Dioxide 31 mmol/L (22-30); Chloride 100 mmol/L (98-107); Glucose 156 mg/dL (74-99); Potassium 3.3 mmol/L (3.5-5.1); Sodium 140 mmol/L (137-145); Total Protein 6.7 g/dL (6.3-8.2)
[2018-03-21 09:48] LABS: HCT 42.6 % (34.0-46.0); HGB 13.6 gm/dL (11.4-16.0); MCH 28.4 pg (25.0-35.0); MCV 88.8 fL (80.0-100.0); Mean Platelet Volume 8.2; Platelet Count 185 k/uL (150-450); RBC 4.79 m/uL (3.80-5.40); RDW 14.2 % (11.5-15.5)
== END ==
LOC: LABPAT 08:01
PROVIDERS: ATTEND Orthopaedic Surgery
DX: Z01.812 Encounter for preprocedural laboratory examination (principal); Z51.81 Encounter for therapeutic drug level monitoring; Z79.01 Long term (current) use of anticoagulants
CPT/HCPCS: 36415; 80053; 81003; 85027; 85610; 85730; 87070

== ENCOUNTER 2018-03-29 10:11 | Inpatient (IN) | payer MEDICARE, OTHER ==
[2018-03-22 11:06] VITALS: BMI 28.7
[~2018-03-29 10:11] MED LIST changes: +LIDOCAINE 1% 20 ML VIAL (10MG/ML) FOR IV START INTRADERMA PRN; +MIDAZOLAM 2 MG/2 ML VIAL IV PRN; -MORPHINE SULFATE 2 MG/ML SYRINGE IV PRN; -ONDANSETRON 4 MG/2 ML VIAL IVP PRN; +SCOPOLAMINE 1.5MG/72HR PATCH TRANSDERM ONE; +VANCOMYCIN 1,250 MG in SODIUM CHLORIDE 0.9% 250 ML IVPB ONE; -VANCOMYCIN 1,500 MG in SODIUM CHLORIDE 0.9% 250 ML IVPB NR; -ceFAZolin IN SWFI 2 GM/20 ML SYRINGE IVP ONE
[2018-03-29] MEDS: LACTATED RINGERS 1,000 ML IV SCH (10:45)
[2018-03-29] MEDS ORDERED: diphenhydrAMINE 50 MG/ML 1 ML VIAL ONE (13:05)
[2018-03-29] MEDS ORDERED: HEPARIN SODIUM,PORCINE 10,000 UNIT/ML 1 ML VIAL ONE (13:05)
[2018-03-29] MEDS ORDERED: PROPOFOL 10 MG/ML 20 ML VIAL IV ONE (13:05)
[2018-03-29] MEDS ORDERED: SODIUM CHLORIDE 0.9% 100 ML BAG ONE (13:05)
[2018-03-29] MEDS ORDERED: TRANEXAMIC ACID 1,000 MG/10 ML VIAL ONE (13:05)
[2018-03-29] MEDS ORDERED: MIDAZOLAM 2 MG/2 ML VIAL ONE (13:05)
[2018-03-29] MEDS ORDERED: SODIUM CHLORIDE 0.9% IRRIG 1,000 ML BTL IRRIGATION ONE (13:05)
[2018-03-29] MEDS ORDERED: fentaNYL (PF) 50 MCG/ML 2 ML AMP ONE (13:05)
[2018-03-29] MEDS ORDERED: ceFAZolin 3,000 MG in SODIUM CHLORIDE 0.9% IRRIGATIO 3,000 ML IRRIGATION ONE (13:39)
[2018-03-29] MEDS ORDERED: LACTATED RINGERS 1,000 ML IV ONE (14:20)
--- NOTE | 2018-03-29 14:31 | P.OP ---
Date of Procedure: 03/29/18 Preoperative Diagnosis: Severe osteoarthritis right hip Postoperative Diagnosis: Severe osteoarthritis right hip Procedure(s) Performed: Right total hip arthroplasty with a direct anterior approach Implants: Bush and nephew Polarstem size 3 standard Bush [employer]hew R3, 3 hole acetabular shell, 48 mm [employer]hew reflection 6.5 mm cancellus screw, 20 mm 2 [employer]hew R3, XLPE 20 acetabular liner [employer] Nephew Oxinium femoral head 32 m, +0 All components were press-fit. The articulation is Oxinium on polyethylene. Anesthesia: spinal Surgeon: Roland Coelman Manager Risk #1: Lilo Butler Estimated Blood Loss (ml): 350 (190 mL returned with Cell Saver) Pathology: other (Femoral head) Condition: stable Disposition: PACU Indications for Procedure: After failure of conservative treatment we discussed the surgical and nonsurgical treatment options at length. Patient wishes to proceed with a total hip arthroplasty with a direct anterior approach. Complications specific to this procedure were discussed at length, including but not limited to infection, leg length discrepancy, dislocation, and nerve injury. Patient is aware of all these complications and informed consent was obtained Operative Findings: The operative findings are consistent with severe osteoarthritis of the right hip Description of Procedure: Patient was seen and evaluated in the preoperative area, consent was reviewed, and the surgical site was marked with a skin marker. Patient was then brought to the operating room and given prophylactic antibiotics intravenously. 1 g of Tranexamic acid was also given. A spinal anesthetic was administered by the anesthesia department. The patient was then placed on the [place] table with the bony prominences well-padded. The hip area was then prepped and draped in usual sterile fashion. A universal timeout was then performed, which confirmed the patient's name, surgical site, ALLERGIES, and procedure being performed. Next the incision site was located at 1 cm distal and 1 cm lateral to the anterior superior iliac spine. The skin and subcutaneous tissues were sharply incised. Incision was carefully dissected down to the fascia overlying the tensor fascia shai muscle. This fascia was then incised in line with the incision. Next, using blunt finger dissection, the tensor fascia shai muscle was dissected off its investing fascia. The muscle was then carefully retracted laterally with a cobra retractor over the lateral neck of the femur. Next, the circumflex vessels were identified and cauterized using the AquaMantis device. The anterior hip capsule was then exposed. The capsule was then opened and an inverted T fashion. Cobra retractors were then placed intracapsularly. The proximal femur was then visualized. The femoral neck was then osteotomized appropriate level above the lesser trochanter. Small amount of traction was placed with the [place] table. A small wedge of bone was then removed from the remaining femoral head. Next, using a corkscrew femoral head was easily removed from the acetabulum. On gross visual inspection, the femoral head had complete loss of articular cartilage in multiple periarticular osteophytes. Attention was then turned to the acetabulum. the acetabulum was exposed and any remaining labrum was excised. Sequential reaming of the acetabulum was performed using fluoroscopic guidance. When the appropriate size was reached, a trial was then placed. The position and fit of the trial was checked with fluoroscopy. The trial was then removed. Then, using fluoroscopic guidance, the final implant was impacted at 20 of anteversion and 40 of abduction, and fully seated in the acetabulum. 2 screws were then placed in the acetabulum. Again fluoroscopy was used to check position of the screws. Next, the liner was then impacted, with a 20 elevated liner located in the anterior superior quadrant. Component locking was confirmed. Attention was then directed to the femur. With the aid of the [place] table, the femur was externally rotated to approximately 130, extended, and abducted under the opposite leg. A side hook was then placed under the proximal femur, and the side hook elevator was used to elevate the proximal femur. Retractors were then placed. A capsular release was performed, as well as a release of the conjoined tendon, which afforded excellent visualization of the proximal femur. Next, a box osteotome was used to lateralize the proximal femur. A tower hand was then used to locate the femoral canal. Sequential broaching was then performed with appropriate size which afforded excellent fixation in the proximal femur. A trial was then placed with appropriate head and neck, and the hip was gently reduced with the aid of the [place] table. Fluoroscopy was then used to check position of the components, as well as to ensure equal leg lengths. The hip was then gently dislocated and the trials were then removed. Final implants were then impacted and the hip was again reduced. Final fluoroscopic x-rays confirmed that the components were in anatomic position, as well as equal leg lengths. The hip was also taken through range of motion, and found to be stable. The hip was then copiously irrigated with antibiotic solution with pulsatile lavage. The hip was then irrigated with Irrisept solution. The soft tissues were then injected with a ropivacaine solution, which consisted of 246.25 mg of ropivacaine, 0.5 mg of epinephrine, 30 mg of Toradol, 80 g of clonidine, and 48.45 mL of sterile water, for a total of 100 mL of fluid injected. A second dose of 1 g of Tranexamic acid was also given. the fascia was then closed with 2-0 strata fix suture. The subcutaneous tissue was closed with 3-0 Vicryl. The subcuticular tissue was closed with 3-0 strata fix suture. The skin was then closed with Dermabond glue and a sterile silver dressing. The patient was then transferred to the recovery room in stable condition. The medical practice assistant KIMBERLY Aguirre was required due to the complexity of surgery, and the need for skilled neurosurgical nurse practitioner for positioning, draping, exposure, retraction, and closure of the wound.
[2018-03-29] MEDS ORDERED: NALOXONE 0.4 MG/ML 1 ML VIAL IV PRN (14:40)
[2018-03-29] MEDS ORDERED: MAGNESIUM HYDROXIDE 2,400 MG/10 ML CUP PO PRN (14:40)
[2018-03-29] MEDS ORDERED: hydrOXYzine PAMOATE 25 MG CAP PO PRN (14:40)
[2018-03-29] MEDS ORDERED: HYDROmorphone 1 MG/ML 1 ML SYRINGE IVP PRN ×2 (14:40)
[2018-03-29] MEDS ORDERED: HYDROcodone/APAP 5-325MG 1 EACH TAB PO PRN (14:40)
[2018-03-29] MEDS ORDERED: DIAZEPAM 5 MG TAB PO PRN ×2 (14:40)
--- NOTE | 2018-03-29 15:15 | XR ---
Limited right hip HISTORY: Status post right hip arthroplasty Single frontal view of the right hip Lucency present in the soft tissues compatible with postop state. Patient is status post right hip ar throplasty. Technique is somewhat limited. Alignment is near-anatomic. IMPRESSION: Orthopedic follow-up.
--- NOTE | 2018-03-29 15:19 | XR ---
Limited right hip HISTORY: Anterior hip replacement 2 intraoperative C-arm images document the procedure.
--- NOTE | 2018-03-29 15:20 | FL ---
Fluoroscopy HISTORY: Hip replacement 40 seconds fluoroscopy time supplied to the referring clinician. 2 intraoperative C-arm images docum ent the procedure. See dictated report from orthopedic surgery.
[2018-03-29] MEDS: SODIUM CHLORIDE 0.9% 1,000 ML IV SCH (16:14)
[2018-03-29] MEDS: HYDROcodone/APAP 5-325MG 1 EACH TAB PO PRN ×2 (16:15→22:28)
--- NOTE | 2018-03-29 16:37 | P.CONS ---
History of Present Illness - Reason for Consult Recommendations regarding antihypertensive medications - History of Present Illness 68-year-old pleasant female admitted for right hip arthroplasty at, and surgery denied any fever chills nausea vomiting abdominal pain. Patient does have history of hypertension. Blood pressure is okay now. I'm holding off on amlodipine to prevent perioperative expected hypotension in most patients. Lisinopril and beta gail will be continued. We'll obtain a basic metabolic profile considering her medical problems and multiple medications. Review of Systems REVIEW OF SYSTEMS: CONSTITUTIONAL: No fever, no malaise, no fatigue. HEENT: No recent visual problems or hearing problems. Denied any sore throat. CARDIOVASCULAR: No chest pain, orthopnea, PND, no palpitations, no syncope. PULMONARY: No shortness of breath, no cough, no hemoptysis. GASTROINTESTINAL: No diarrhea, no nausea, no vomiting, no abdominal pain. Normoactive bowel sounds. NEUROLOGICAL: No headaches, no weakness, no numbness. HEMATOLOGICAL: Denies any bleeding or petechiae. GENITOURINARY: Denies any burning micturition, frequency, or urgency. MUSCULOSKELETAL/RHEUMATOLOGICAL: Denies any joint pain, swelling, or any muscle pain. ENDOCRINE: Denies any polyuria or polydipsia. The rest of the 14-point review of systems is negative. Past Medical History Past Medical History: Cancer, Diabetes Mellitus, GERD/Reflux, Hyperlipidemia, Hypertension, Osteoarthritis (OA), Thyroid Disorder Additional Past Medical History / Comment(s): DIET CONTROLLED-DIABETIC , SQUAMOUS CELL -RIGHT LEG History of Any Multi-Drug Resistant Organisms: MRSA Year Discovered:: november 2017 MDRO Source:: nose Past Surgical History: Bariatric Surgery, Section, Cholecystectomy, Joint Replacement Additional Past Surgical History / Comment(s): X2, ANNELIESE LEG NERVE SURGERY, GASTRIC [id number]. TOTAL LEFT KNEE Past Anesthesia/Blood Transfusion Reactions: Motion Sickness Additional Past Anesthesia/Blood Transfusion Reaction / Comm: HX OF BLOOD TRANSFUSIONS=NO REACTION Past Psychological History: Depression Additional Psychological History / Comment(s): SEASONAL AFFECTIVE DISORDER-pt states this was not a problem this past winter. Pt resides with her spouse for whom she is caregiver. He is in a wheelchair. 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 Pt uses no assistive devices. She drives. Smoking Status: Former smoker Past Alcohol Use History: Occasional Additional Past Alcohol Use History / Comment(s): Pt started smoking in 1967 and quit May of 1989. SMOKED ON AND OFF - SMOKED 1PPD Past Drug Use History: None Reported - Past Family History Mother Family Medical History: No Reported History Father Family Medical History: Diabetes Mellitus, Hypertension Medications and Allergies Home Medications Medication Instructions Recorded Confirmed Type Levothyroxine Sodium [Synthroid] 112 mcg PO QAM 08/20/14 03/29/18 History Lisinopril [Zestril] 10 mg PO DAILY@1700 08/20/14 03/29/18 History Multivitamins, Thera [Multivitamin 1 tab PO DAILY 08/20/14 03/29/18 History (formulary)] amLODIPine [Norvasc] 10 mg PO DAILY@1700 08/20/14 03/29/18 History Atorvastatin [Lipitor] 10 mg PO QAM 11/18/17 03/29/18 History Cholecalciferol [Vitamin D3] 1,000 unit PO DAILY 11/18/17 03/29/18 History Garlic 1 tab PO DAILY 11/18/17 03/29/18 History Metoprolol Succinate (ER) [Toprol 50 mg PO QAM 11/18/17 03/29/18 History XL] Calcium Carbonate [Calcium] 600 mg PO BID 11/23/17 03/29/18 History Aspirin [Adult Low Dose Aspirin EC] 81 mg PO DAILY 02/16/18 03/29/18 History Hydrocodone/Acetaminophen [[place] 1 tab PO Q8H PRN 02/16/18 03/29/18 History 7.5-325] Allergies Allergy/AdvReac Type Severity Reaction Status Date / Time Sulfa (Sulfonamide Allergy Unknown Rash/Hives Verified 03/29/18 16:06 Antibiotics) Physical Exam Vitals: Vital Signs Temp Pulse Pulse Resp BP Pulse Ox 03/29/18 15:30 70 18 135/73 98 03/29/18 15:15 69 18 110/66 96 03/29/18 15:00 74 18 113/69 97 03/29/18 14:45 74 18 112/63 96 03/29/18 14:38 97.1 F L 74 14 103/61 99 03/29/18 10:30 99.1 F 75 16 143/76 97 Intake and Output 03/29/18 03/29/18 03/29/18 06:59 14:59 22:59 Intake Total 1301 150 Output Total 350 Balance 951 150 Intake: IV 1301 150 Output: Estimated Blood Loss 350 Other: Weight 80.739 kg PHYSICAL EXAMINATION: GENERAL: The patient is alert and oriented x3, not in any acute distress. Well developed, well nourished. HEENT: Pupils are round and equally reacting to light. EOMI. No scleral icterus. No conjunctival pallor. Normocephalic, atraumatic. No pharyngeal erythema. No thyromegaly. CARDIOVASCULAR: S1 and S2 present. No murmurs, rubs, or gallops. PULMONARY: Chest is clear to auscultation, no wheezing or crackles. ABDOMEN: Soft, nontender, nondistended, normoactive bowel sounds. No palpable organomegaly. MUSCULOSKELETAL: Deferred to orthopedic surgery EXTREMITIES: No cyanosis, clubbing, or pedal edema. NEUROLOGICAL: Gross neurological examination did not reveal any focal deficits. SKIN: No rashes. Results CBC & Chem 7: 03/29/18 10:48 Assessment and Plan Plan: -Right hip arthroplasty: Postoperative day 0 pain management DVT prophylaxis as per primary service -Hypertension: Lisinopril, metoprolol will be continued amlodipine will be held at prevent perioperative hypotension. -Gastroesophageal reflux disease -Type 2 diabetes mellitus: Patient will be started on sliding scale insulin -Hypothyroidism continue with levothyroxine -Depression continue with her home medication.
[2018-03-29 16:45] LABS: Glucose,Whole Blood 146 mg/dL (75-99)
[2018-03-29] MEDS ORDERED: LISINOPRIL 10 MG TAB PO SCH (17:00)
[2018-03-29] MEDS: INSULIN ASPART 100 UNIT/ML 1 ML 10 ML VIAL SQ SCH ×2 (17:30→20:47)
[2018-03-29 18:05] VITALS: RESP 16
[2018-03-29] MEDS: ONDANSETRON 4 MG/2 ML VIAL IVP PRN (18:29)
[2018-03-29] MEDS ORDERED: VANCOMYCIN 1,250 MG in SODIUM CHLORIDE 0.9% 250 ML IVPB ONE (19:00)
[2018-03-29] MEDS: ASPIRIN 325 MG TAB PO SCH (19:30)
[2018-03-29] MEDS: HYDROmorphone 1 MG/ML 1 ML SYRINGE IVP PRN (19:30)
[2018-03-29 20:09] LABS: Glucose,Whole Blood 278 mg/dL (75-99)
[2018-03-29] MEDS ORDERED: SENNOSIDES-DOCUSATE SODIUM 1 EACH TAB PO SCH (21:00)
[2018-03-29 22:10] LABS: Glucose,Whole Blood 246 mg/dL (75-99)
[2018-03-30] MEDS: HYDROmorphone 1 MG/ML 1 ML SYRINGE IVP PRN ×2 (02:01→08:20)
[2018-03-30] MEDS: LACTATED RINGERS 1,000 ML IV SCH (03:32)
[2018-03-30] MEDS: HYDROcodone/APAP 5-325MG 1 EACH TAB PO PRN (04:50)
[2018-03-30] MEDS: SODIUM CHLORIDE 0.9% 1,000 ML IV SCH (05:24)
[2018-03-30] MEDS ORDERED: LEVOTHYROXINE 112 MCG TAB PO SCH (06:30)
[2018-03-30 06:50] LABS: Glucose,Whole Blood 109 mg/dL (75-99)
[2018-03-30] MEDS: INSULIN ASPART 100 UNIT/ML 1 ML 10 ML VIAL SQ SCH ×2 (08:13→14:27)
[2018-03-30] MEDS: ASPIRIN 325 MG TAB PO SCH (08:18)
[2018-03-30] MEDS: ONDANSETRON 4 MG/2 ML VIAL IVP PRN (08:20)
[2018-03-30] MEDS ORDERED: HYDROcodone/APAP 7.5-325MG 1 EACH TAB PO PRN ×2 (08:21)
--- NOTE | 2018-03-30 08:48 | P.DS ---
Providers Date of admission: 03/29/18 10:11 Expected date of discharge: 03/30/18 Attending physician: Roland Coleman Consults: 03/29/18 14:40 Consult Physician Routine Consulting Provider: Chandra Raphael Consult Reason/Comments: medical management Do you want consulting provider notified?: Yes Primary care physician: Imelda Beckham - Discharge Diagnosis(es) (1) Primary osteoarthritis of right hip Current Visit: Yes Status: Acute (2) S/P total hip arthroplasty Current Visit: Yes Status: Acute Hospital Course: This is a 68-year-old female with known history of degenerative arthritis of the right hip. The patient presents for evaluation. After discussion and consideration patient elects to proceed with total hip arthroplasty. The patient is seen preoperatively by Dr. Coleman and medically cleared for surgery by their primary care physician. Patient's past medical history significant for hypertension, GERD, type 2 diabetes mellitus, hypothyroidism and depression. Patient is admitted to [facility] on 03/29/2018 for total hip arthroplasty. The procedures performed without complication or sequelae. The patient is doing well postoperatively. Labs and vital signs are stable on day of discharge. On day of discharge patient's hip incision is healing well. There is minimal erythema. There is no drainage noted at this time. There is minimal soft tissue swelling to the hip and thigh. Patient has full foot and ankle motion without difficulty or pain. Neurovascular status to the right lower extremity is intact. Patient is discharged home in good condition. Please see med rec for accurate list of home medications. Plan - Discharge Summary Discharge Rx Participant: Yes New Discharge Prescriptions: New Aspirin 325 mg PO BID #60 tab HYDROcodone/APAP 7.5-325MG [[place] 7.5-325] 1 - 2 tab PO Q4-6H PRN #84 tab PRN Reason: Pain Sennosides [Senokot] 1 tab PO BID #60 tablet No Action amLODIPine [Norvasc] 10 mg PO DAILY@1700 Multivitamins, Thera [Multivitamin (formulary)] 1 tab PO DAILY Lisinopril [Zestril] 10 mg PO DAILY@1700 Levothyroxine Sodium [Synthroid] 112 mcg PO QAM Metoprolol Succinate (ER) [Toprol XL] 50 mg PO QAM Garlic 1 tab PO DAILY Cholecalciferol [Vitamin D3] 1,000 unit PO DAILY Atorvastatin [Lipitor] 10 mg PO QAM Calcium Carbonate [Calcium] 600 mg PO BID Hydrocodone/Acetaminophen [[place] 7.5-325] 1 tab PO Q8H PRN PRN Reason: Pain Aspirin [Adult Low Dose Aspirin EC] 81 mg PO DAILY Discharge Medication List Levothyroxine Sodium [Synthroid] 112 mcg PO QAM 08/20/14 [History] Lisinopril [Zestril] 10 mg PO DAILY@1700 08/20/14 [History] Multivitamins, Thera [Multivitamin (formulary)] 1 tab PO DAILY 08/20/14 [History ] amLODIPine [Norvasc] 10 mg PO DAILY@1700 08/20/14 [History] Atorvastatin [Lipitor] 10 mg PO QAM 11/18/17 [History] Cholecalciferol [Vitamin D3] 1,000 unit PO DAILY 11/18/17 [History] Garlic 1 tab PO DAILY 11/18/17 [History] Metoprolol Succinate (ER) [Toprol XL] 50 mg PO QAM 11/18/17 [History] Calcium Carbonate [Calcium] 600 mg PO BID 11/23/17 [History] Aspirin [Adult Low Dose Aspirin EC] 81 mg PO DAILY 02/16/18 [History] Hydrocodone/Acetaminophen [[place] 7.5-325] 1 tab PO Q8H PRN 02/16/18 [History] Aspirin 325 mg PO BID #60 tab 03/30/18 [Rx] HYDROcodone/APAP 7.5-325MG [[place] 7.5-325] 1 - 2 tab PO Q4-6H PRN #84 tab [Rx] Sennosides [Senokot] 1 tab PO BID #60 tablet 03/30/18 [Rx] Follow up Appointment(s)/Referral(s): Roland Coleman DO [Doctor of Osteopathic Medicine] - 2 Weeks Activity/Diet/Wound Care/Special Instructions: Weightbearing as tolerated with walker Leave dressing intact. Dressing may be removed by home care nurse in 10 days. May shower with dressing on. Follow-up with [facility] in 2 weeks, please call with any questions or concerns [phone]
[2018-03-30] MEDS ORDERED: METOPROLOL SUCCINATE (ER) 50 MG TAB.ER.24H PO SCH (09:00)
[2018-03-30] MEDS ORDERED: MELOXICAM 7.5 MG TAB PO SCH (09:00)
[2018-03-30] MEDS ORDERED: ATORVASTATIN 10 MG TAB PO SCH (09:00)
[2018-03-30] MEDS ORDERED: ASPIRIN 81 MG PO SCH (09:00)
[2018-03-30 09:02] VITALS: BP 147/94; PULSE 73; TEMP 98.1
[2018-03-30 09:12] LABS: Calcium 8.9 mg/dL (8.4-10.2); Potassium 4.6 mmol/L (3.5-5.1)
[2018-03-30 09:16] LABS: Basophils % (A) 0 %; Eosinophils % (A) 0 %; HCT 34.6 % (34.0-46.0); HGB 10.9 gm/dL (11.4-16.0); Hypochromasia Slight; Lymphocytes % (A) 18 %; MCH 29.1 pg (25.0-35.0); MCHC 31.5 g/dL (31.0-37.0); MCV 92.4 fL (80.0-100.0); Mean Platelet Volume 8.1; Monocytes # (A) 0.5 k/uL (0-1.0); Monocytes % (A) 5 %; Neutrophils # (A) 8.3 k/uL (1.3-7.7); Neutrophils % (A) 76 %; Platelet Count 218 k/uL (150-450); RBC 3.75 m/uL (3.80-5.40); RDW 14.5 % (11.5-15.5); WBC 10.9 k/uL (3.8-10.6)
[2018-03-30 11:44] LABS: Glucose,Whole Blood 133 mg/dL (75-99)
--- NOTE | 2018-03-30 13:07 | P.PN ---
Subjective No overnight events clinically doing well is being discharged which is okay from medical perspective, discharge medications were reviewed, no changes are being made. Constitutional: Denied any fatigue denied any fever. Cardio vascular: denied any chest pain, palpitations Gastrointestinal denied any nausea vomiting Pulmonary: Denied any shortness of breath cough Neurologic denied any new focal deficits Objective - Vital Signs Vital signs: Vital Signs Temp 98.1 F 03/30/18 07:25 Pulse 73 03/30/18 07:25 Resp 16 03/30/18 07:25 BP 147/94 03/30/18 07:25 Pulse Ox 97 03/30/18 07:25 Intake & Output 03/29/18 03/30/18 03/30/18 18:59 06:59 18:59 Intake Total 1687 1290 Output Total 350 Balance 1337 1290 Weight 80.739 kg Intake: IV 1451 Intake, IV Titration 1290 Amount Sodium Chloride 0.9% 1, 1040 000 ml @ 65 mls/hr IV . [id number] [facility] Rx#:[id number] Vancomycin 1,250 mg In 250 Sodium Chloride 0.9% 250 ml @ 125 mls/hr IVPB ONCE ONE Rx#:[id number] Oral 236 Output: Estimated Blood Loss 350 Other: # Voids 2 - Exam PHYSICAL EXAMINATION: GENERAL: The patient is alert and oriented x3, not in any acute distress. Well developed, well nourished. HEENT: Pupils are round and equally reacting to light. EOMI. No scleral icterus. No conjunctival pallor. Normocephalic, atraumatic. No pharyngeal erythema. No thyromegaly. CARDIOVASCULAR: S1 and S2 present. No murmurs, rubs, or gallops. PULMONARY: Chest is clear to auscultation, no wheezing or crackles. ABDOMEN: Soft, nontender, nondistended, normoactive bowel sounds. No palpable organomegaly. MUSCULOSKELETAL: Deferred to orthopedic surgery EXTREMITIES: No cyanosis, clubbing, or pedal edema. NEUROLOGICAL: Gross neurological examination did not reveal any focal deficits. SKIN: No rashes. - Labs CBC & Chem 7: 03/30/18 08:13 03/30/18 08:13 Labs: Abnormal Lab Results - Last 24 Hours (Table) 03/29/18 03/29/18 03/29/18 Range/Units 16:43 20:03 22:08 WBC (3.8-10.6) k/uL RBC (3.80-5.40) m/uL Hgb (11.4-16.0) gm/dL Neutrophils # (1.3-7.7) k/uL BUN (7-17) mg/dL Glucose (74-99) mg/dL POC Glucose (mg/dL) 146 H 278 H 246 H (75-99) mg/dL 03/30/18 03/30/18 03/30/18 Range/Units 06:48 08:13 08:13 WBC 10.9 H (3.8-10.6) k/uL RBC 3.75 L (3.80-5.40) m/uL Hgb 10.9 L (11.4-16.0) gm/dL Neutrophils # 8.3 H (1.3-7.7) k/uL BUN 24 H (7-17) mg/dL Glucose 229 H (74-99) mg/dL POC Glucose (mg/dL) 109 H (75-99) mg/dL 03/30/18 Range/Units 11:42 WBC (3.8-10.6) k/uL RBC (3.80-5.40) m/uL Hgb (11.4-16.0) gm/dL Neutrophils # (1.3-7.7) k/uL BUN (7-17) mg/dL Glucose (74-99) mg/dL POC Glucose (mg/dL) 133 H (75-99) mg/dL Assessment and Plan Plan: -Right hip arthroplasty: Postoperative day 1 pain management DVT prophylaxis as per primary service -Hypertension: Lisinopril, metoprolol and amlodipine come be continued upon discharge blood pressure is stable here. -Gastroesophageal reflux disease -Type 2 diabetes mellitus: Continue resumed on her home regimen -Hypothyroidism continue with levothyroxine -Depression continue with her home medication.
[2018-03-30 19:14] LABS: Hemoglobin A1C 5.8 % (4.0-6.0)
== END 2018-03-30 15:06 | disposition home health service (06) | DRG 470 ==
LOC: 2ORMAIN 10:11 → 3SUR 15:00
PROVIDERS: ADMIT Orthopaedic Surgery; ATTEND Orthopaedic Surgery
PROC: 30233N0 Transfusion of Autologous Red Blood Cells into Peripheral Vein, Percutaneous Approach (ICD-10-PCS; 2018-03-29)
PROC: 0SR906A Replacement of Right Hip Joint with Oxidized Zirconium on Polyethylene Synthetic Substitute, Uncemented, Open Approach (ICD-10-PCS; principal; 2018-03-29 13:00)
DX: M16.11 Unilateral primary osteoarthritis, right hip (principal); E11.42 Type 2 diabetes mellitus with diabetic polyneuropathy; E03.9 Hypothyroidism, unspecified; I10 Essential (primary) hypertension; E78.5 Hyperlipidemia, unspecified; F39 Unspecified mood [affective] disorder; K21.9 Gastro-esophageal reflux disease without esophagitis; Z86.14 Personal history of Methicillin resistant Staphylococcus aureus infection; Z90.49 Acquired absence of other specified parts of digestive tract; Z98.84 Bariatric surgery status; Z96.652 Presence of left artificial knee joint; Z87.891 Personal history of nicotine dependence; Z79.82 Long term (current) use of aspirin; Z79.890 Hormone replacement therapy; Z79.899 Other long term (current) drug therapy; Z88.2 Allergy status to sulfonamides; Z83.3 Family history of diabetes mellitus; Z82.49 Family history of ischemic heart disease and other diseases of the circulatory system
CPT/HCPCS: 73501; 80048; 83036; 84132; 85025; 86850; 86891; 86900; 86901; 88300

== ENCOUNTER 2018-08-18 23:44 | Inpatient (IN) | payer MEDICARE, OTHER ==
[2018-08-19] MEDS ORDERED: SODIUM CHLORIDE 0.9% 1,000 ML IV ONE (00:09)
--- NOTE | 2018-08-19 00:16 | ED ---
General Adult HPI - General Stated complaint: Poss Overdose Time Seen by Provider: 08/18/18 23:46 Source: patient, EMS Mode of arrival: EMS Limitations: no limitations - History of Present Illness Initial comments: Is a pleasant 68-year-old female who is brought to the ED today via EMS for evaluation of intoxication. Luh admits that since her was placed in a [place] [facility] [place] last week she has been drinking heavily, she states that she's been drinking a bottle of wine every day. She states that this afternoon she was on the phone with her daughter who lives across the state, her daughter became concerned that she may be intoxicated and taking her pain pills so she called EMS. EMS reports that they were contacted 3 times throughout the day today. The first 2 times the patient did admit to be intoxicated but was in her home and appeared safe he did not transport to the hospital however given the third: The concern for coingestions with narcotics decision was made for the patient's safety debris in the hospital for evaluation. Patient calm and cooperative she has no complaints she denies any suicidal ideation. - Related Data Home Medications Medication Instructions Recorded Confirmed Levothyroxine Sodium [Synthroid] 112 mcg PO QAM 08/20/14 03/29/18 Lisinopril [Zestril] 10 mg PO DAILY@1700 08/20/14 03/29/18 Multivitamins, Thera [Multivitamin 1 tab PO DAILY 08/20/14 03/29/18 (formulary)] amLODIPine [Norvasc] 10 mg PO DAILY@1700 08/20/14 03/29/18 Atorvastatin [Lipitor] 10 mg PO QAM 11/18/17 03/29/18 Cholecalciferol [Vitamin D3] 1,000 unit PO DAILY 11/18/17 03/29/18 Garlic 1 tab PO DAILY 11/18/17 03/29/18 Metoprolol Succinate (ER) [Toprol 50 mg PO QAM 11/18/17 03/29/18 XL] Calcium Carbonate [Calcium] 600 mg PO BID 11/23/17 03/29/18 Aspirin [Adult Low Dose Aspirin EC] 81 mg PO DAILY 02/16/18 03/29/18 Hydrocodone/Acetaminophen [[place] 1 tab PO Q8H PRN 02/16/18 03/29/18 7.5-325] Previous Rx's Medication Instructions Recorded Aspirin 325 mg PO BID #60 tab 03/30/18 HYDROcodone/APAP 7.5-325MG [[place] 1 - 2 tab PO Q4-6H PRN #84 tab 03/30/18 7.5-325] Sennosides [Senokot] 1 tab PO BID #60 tablet 03/30/18 Allergies Allergy/AdvReac Type Severity Reaction Status Date / Time Sulfa (Sulfonamide Allergy Unknown Rash/Hives Verified 03/29/18 16:06 Antibiotics) Review of Systems ROS Statement: Those systems with pertinent positive or pertinent negative responses have been documented in the HPI. ROS Other: All systems not noted in ROS Statement are negative. Past Medical History Past Medical History: Cancer, Diabetes Mellitus, GERD/Reflux, Hyperlipidemia, Hypertension, Osteoarthritis (OA), Thyroid Disorder Additional Past Medical History / Comment(s): DIET CONTROLLED-DIABETIC , SQUAMOUS CELL -RIGHT LEG History of Any Multi-Drug Resistant Organisms: MRSA Date of last positivie culture/infection: november 2017 MDRO Source:: nose Past Surgical History: Bariatric Surgery, Section, Cholecystectomy, Joint Replacement Additional Past Surgical History / Comment(s): X2, ANNELIESE LEG NERVE SURGERY, GASTRIC [id number]. TOTAL LEFT KNEE Past Anesthesia/Blood Transfusion Reactions: Motion Sickness Additional Past Anesthesia/Blood Transfusion Reaction / Comment(s): HX OF BLOOD TRANSFUSIONS=NO REACTION Past Psychological History: Depression Smoking Status: Former smoker Past Alcohol Use History: Daily Past Drug Use History: None Reported - Past Family History Mother Family Medical History: No Reported History Father Family Medical History: Diabetes Mellitus, Hypertension General Exam - General Exam Comments Initial Comments: Physical Exam GENERAL: Unkempt elderly female HENT: Normocephalic, Atraumatic. Mucous membranes dry EYES: PERRL, EOMI PULMONARY: Unlabored respirations CARDIOVASCULAR: Tachycardic, regular ABDOMEN: Obese SKIN: Unclean with stool on her legs Small abrasion to left elbow : Deferred NEUROLOGIC: Patient is alert and oriented x3. Moving all extremities spontaneously MUSCULOSKELETAL: Normal extremities with adequate strength and full range of motion. No lower extremity swelling or edema. No calf tenderness. PSYCHIATRIC: Deny suicidal or homicidal ideation Limitations: no limitations Limitations: no limitations Course Vital Signs 08/18/18 23:58 Temperature 97.6 F Pulse Rate 120 H Respiratory 20 Rate Blood Pressure 141/90 O2 Sat by Pulse 98 Oximetry EKG Findings - EKG Comments: EKG Findings:: EKG obtained at 12 AM, rate is 112 rhythm is sinus tachycardia there is a normal axis there are normal intervals, UT 164, QRS 84, QTC is 453. There are no acute ST elevations or depressions or evidence of acute ischemia or infarction. Medical Decision Making - Medical Decision Making The patient was seen and evaluated history is obtained from the patient and EMS EMSs evaluated the patient 3 times today for alcohol intoxication this evening her daughter is reporting concern for coingestion with narcotics sure patient was brought to the emergency department Patient does report she was prescribed [place] and did take more than prescribed she is currently out she is due for refill in 4 days Patient was awake alert oriented no signs of narcotic intoxication upon my initial evaluation Labs and EKG were ordered Patient agitated and shaking, concern for withdraw, PO Ativan ordered EKG revealed tachycardia Labs with hyponatremia, review of previous visits indicate this is new - likely related to poor PO intake, however will plan to admit patient for fluid rehydration, repeat labs and evaluation of possible alcohol withdraw. - Lab Data Result diagrams: 08/19/18 00:20 08/19/18 00:20 Lab Results 08/19/18 08/19/18 Range/Units 00:20 00:20 WBC 9.9 (3.8-10.6) k/uL RBC 4.46 (3.80-5.40) m/uL Hgb 12.5 (11.4-16.0) gm/dL Hct 39.3 (34.0-46.0) % MCV 88.0 (80.0-100.0) fL MCH 28.1 (25.0-35.0) pg MCHC 32.0 (31.0-37.0) g/dL RDW 15.2 (11.5-15.5) % Plt Count 187 (150-450) k/uL Neutrophils % 76 % Lymphocytes % 16 % Monocytes % 6 % Eosinophils % 1 % Basophils % 1 % Neutrophils # 7.5 (1.3-7.7) k/uL Lymphocytes # 1.5 (1.0-4.8) k/uL Monocytes # 0.6 (0-1.0) k/uL Eosinophils # 0.1 (0-0.7) k/uL Basophils # 0.1 (0-0.2) k/uL Sodium 129 L (137-145) mmol/L Potassium 4.0 (3.5-5.1) mmol/L Chloride 96 L (98-107) mmol/L Carbon Dioxide 14 L (22-30) mmol/L Anion Gap 19 mmol/L BUN 8 (7-17) mg/dL Creatinine 0.69 (0.52-1.04) mg/dL Est GFR (CKD-EPI)AfAm >90 (>60 ml/min/1.73 sqM) Est GFR (CKD-EPI)NonAf >90 (>60 ml/min/1.73 sqM) Glucose 110 H (74-99) mg/dL Calcium 8.7 (8.4-10.2) mg/dL Total Bilirubin 0.9 (0.2-1.3) mg/dL AST 60 H (14-36) U/L ALT 30 (9-52) U/L Alkaline Phosphatase 95 (38-126) U/L Total Protein 6.3 (6.3-8.2) g/dL Albumin 3.8 (3.5-5.0) g/dL Salicylates <1.0 mg/dL Acetaminophen <10.0 ug/mL Serum Alcohol 164 mg/dL Disposition Clinical Impression: Alcoholic intoxication, Hyponatremia Disposition: ADMITTED IP TO THIS HOSP Condition: Stable Referrals: Imelda Beckham III, MD [Primary Care Provider] - 1-2 days
[2018-08-19] MEDS ORDERED: LORazepam 1 MG TAB PO STA (00:23)
[2018-08-19 00:32] LABS: Basophils # (A) 0.1 k/uL (0-0.2); Basophils % (A) 1 %; Eosinophils # (A) 0.1 k/uL (0-0.7); Eosinophils % (A) 1 %; HCT 39.3 % (34.0-46.0); HGB 12.5 gm/dL (11.4-16.0); Lymphocytes # (A) 1.5 k/uL (1.0-4.8); Lymphocytes % (A) 16 %; MCH 28.1 pg (25.0-35.0); Monocytes # (A) 0.6 k/uL (0-1.0); Monocytes % (A) 6 %; Neutrophils # (A) 7.5 k/uL (1.3-7.7); Neutrophils % (A) 76 %; Platelet Count 187 k/uL (150-450); RBC 4.46 m/uL (3.80-5.40); RDW 15.2 % (11.5-15.5); WBC 9.9 k/uL (3.8-10.6)
[2018-08-19 00:40] LABS: ALT 30 U/L (9-52); AST 60 U/L (14-36); Acetaminophen <10.0 ug/mL; Albumin 3.8 g/dL (3.5-5.0); Alkaline Phosphatase 95 U/L (38-126); Anion Gap 19 mmol/L; Blood Urea Nitrogen 8 mg/dL (7-17); Calcium 8.7 mg/dL (8.4-10.2); Carbon Dioxide 14 mmol/L (22-30); Chloride 96 mmol/L (98-107); Glucose 110 mg/dL (74-99); Salicylate <1.0 mg/dL; Sodium 129 mmol/L (137-145); Total Bilirubin 0.9 mg/dL (0.2-1.3); Total Protein 6.3 g/dL (6.3-8.2)
[2018-08-19 00:57] LABS: Alcohol 164 mg/dL
[2018-08-19] MEDS ORDERED: NALOXONE 0.4 MG/ML 1 ML VIAL IV PRN (01:28)
[2018-08-19] MEDS ORDERED: THIAMINE 100 MG/ML 2 ML VIAL IM STA (01:29)
[2018-08-19] MEDS ORDERED: LORazepam 2 MG/ML INJ IV PRN ×3 (01:29)
[2018-08-19] MEDS: SODIUM CHLORIDE 0.9% 1,000 ML IV SCH ×3 (02:20→21:59)
[2018-08-19 03:53] VITALS: BMI 33.9
[2018-08-19] MEDS: LORazepam 2 MG/ML INJ IV PRN ×4 (05:56→14:27)
[2018-08-19 07:59] LABS: Appearance,Urine Clear (Clear); Bilirubin,Urine Negative (Negative); Blood,Urine Negative (Negative); Color,Urine Light Yellow; Glucose,Urine (UA) Negative (Negative); Ketones,Urine 1+ (Negative); Leukocyte Esterase,Urine Negative (Negative); Nitrite,Urine Negative (Negative); Protein,Urine Negative (Negative); Specific Gravity,Urine 1.005 (1.001-1.035); Urobilinogen,Urine <2.0 mg/dL (<2.0)
[2018-08-19 08:09] LABS: Amphetamine Screen,Urine Not Detected (NotDetected); Barbiturate Screen,Urine Not Detected (NotDetected); Benzodiazepines Screen,Urine Detected (NotDetected); Cocaine Screen,Urine Not Detected (NotDetected); Methadone Screen, Urine Not Detected (NotDetected); Opiate Screen,Urine Not Detected (NotDetected); Oxycodone Screen, Urine Not Detected (NotDetected); Phencyclidine Screen,Urine Not Detected (NotDetected); Tricyclic Antidepressant,Urine Not Detected (NotDetected); Urn Cannabinoid Scrn Not Detected (NotDetected)
[2018-08-19] MEDS: MULTIVITAMINS, THERA 1 EACH TAB PO SCH (10:18)
[2018-08-19 11:57] LABS: Glucose,Whole Blood 118 mg/dL (75-99)
[2018-08-19 11:57] LABS: Glucose,Whole Blood 131 mg/dL (75-99)
[2018-08-19] MEDS ORDERED: ONDANSETRON 4 MG/2 ML VIAL IVP PRN (15:17)
[2018-08-19 17:30] LABS: Glucose,Whole Blood 128 mg/dL (75-99)
[2018-08-19] MEDS: THIAMINE 100 MG TAB PO SCH (17:32)
[2018-08-19] MEDS: LISINOPRIL 10 MG TAB PO SCH (17:32)
[2018-08-19] MEDS: ACETAMINOPHEN TAB 500 MG TAB PO PRN (17:40)
[2018-08-19] MEDS: HEPARIN SODIUM,PORCINE 5,000 UNIT/ML 1 ML VIAL SQ SCH ×2 (17:40→23:46)
[2018-08-19] MEDS: PANTOPRAZOLE 40 MG TABLET PO SCH (17:41)
[2018-08-19 20:46] LABS: Glucose,Whole Blood 152 mg/dL (75-99)
[2018-08-19] MEDS: CALCIUM CARBONATE 500 MG CHEWABLE PO SCH (21:59)
--- NOTE | 2018-08-20 01:24 | P.HPIM ---
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 Patient says that her was placed in a intermediate last week and since then patient has been drinking heavily for the past 1 week. She states that this afternoon she was on the phone with her daughter who lives across the state , her daughter became concerned that she may be intoxicated and taking her pain pills so she called EMS. EMS reports that they were contacted 3 times throughout the day today. The first 2 times the patient did admit to be intoxicated but was in her home and appeared safe he did not transport to the hospital however given the third: The concern for coingestions with narcotics decision was made for the patient's safety debris in the hospital for evaluation. Patient calm and cooperative she has no complaints she denies any suicidal ideation. 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 sodium 129 UDS positive for benzodiazepines EKG showed sinus tachycardia AST 60 Serum alcohol 164 on admission. Currently patient is awake and oriented. Review of Systems Constitutional: Patient denies any fever or chills . No generalized weakness or weight loss. Abdomen: Patient denied nausea vomiting and diarrhea and abdominal pain. Cardiovascular: Patient denies any chest pain or short of breath no palpitations. Respiratory: patient denied any cough is from production. No shortness of breath Neurologic: Patient denied any numbness or tingling headache. Musculoskeletal: Patient denies any complaints of joint swelling or deformity. Skin: Negative Psychiatric: Negative Endocrine: No heat or cold intolerance. No recent weight gain. Genitourinary: No dysuria or hematuria. All other 14 point ROS negative except the above Past Medical History Past Medical History: Cancer, Diabetes Mellitus, GERD/Reflux, Hyperlipidemia, Hypertension, Osteoarthritis (OA), Thyroid Disorder Additional Past Medical History / Comment(s): DIET CONTROLLED-DIABETIC , SQUAMOUS CELL -RIGHT LEG History of Any Multi-Drug Resistant Organisms: MRSA Date of last positivie culture/infection: november 2017 MDRO Source:: nose Past Surgical History: Bariatric Surgery, Section, Cholecystectomy, Joint Replacement Additional Past Surgical History / Comment(s): X2, ANNELIESE LEG NERVE SURGERY, GASTRIC [id number]. TOTAL LEFT KNEE, total right hip Past Anesthesia/Blood Transfusion Reactions: Motion Sickness Additional Past Anesthesia/Blood Transfusion Reaction / Comment(s): HX OF BLOOD TRANSFUSIONS=NO REACTION Past Psychological History: Depression Additional Psychological History / Comment(s): SEASONAL AFFECTIVE DISORDER-pt states this was not a problem this past winter. Pt resides with her spouse for whom she is caregiver. 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 Pt uses no assistive devices. She drives. Smoking Status: Former smoker Past Alcohol Use History: Daily, Heavy Additional Past Alcohol Use History / Comment(s): Pt started smoking in 1967 and quit May of 1989. SMOKED ON AND OFF - SMOKED 1PPD Past Drug Use History: None Reported - Past Family History Mother Family Medical History: No Reported History Father Family Medical History: Diabetes Mellitus, Hypertension Medications and Allergies Home Medications Medication Instructions Recorded Confirmed Type Levothyroxine Sodium [Synthroid] 112 mcg PO QAM 08/20/14 08/19/18 History Lisinopril [Zestril] 10 mg PO DAILY@1700 08/20/14 08/19/18 History Multivitamins, Thera [Multivitamin 1 tab PO DAILY 08/20/14 08/19/18 History (formulary)] amLODIPine [Norvasc] 10 mg PO DAILY 08/20/14 08/19/18 History Cholecalciferol [Vitamin D3] 1,000 unit PO DAILY 11/18/17 08/19/18 History Garlic 1 tab PO DAILY 11/18/17 08/19/18 History Metoprolol Succinate (ER) [Toprol 50 mg PO QAM 11/18/17 08/19/18 History XL] Calcium Carbonate [Calcium] 600 mg PO BID 11/23/17 08/19/18 History Aspirin [Adult Low Dose Aspirin EC] 81 mg PO DAILY 02/16/18 08/19/18 History Hydrocodone/Acetaminophen [[place] 1 tab PO Q8H PRN 02/16/18 08/19/18 History 7.5-325] Allergies Allergy/AdvReac Type Severity Reaction Status Date / Time Sulfa (Sulfonamide Allergy Unknown Rash/Hives Verified 03/29/18 16:06 Antibiotics) Physical Exam Vitals: Vital Signs Temp Pulse Pulse Resp BP BP Pulse Ox 08/19/18 12:03 99.1 F 119 H 18 137/84 95 08/19/18 03:22 97.9 F 105 H 16 104/57 96 08/19/18 02:02 109 H 20 120/63 98 08/19/18 01:05 112 H 20 117/73 97 08/19/18 00:25 110 H 20 135/78 98 08/18/18 23:58 97.6 F 120 H 20 141/90 98 Intake and Output 08/18/18 08/19/18 08/19/18 22:59 06:59 14:59 Other: Voiding Method Toilet Toilet # Voids 1 1 # Bowel Movements 1 Weight 95.254 kg PHYSICAL EXAMINATION: Patient is lying in the bed comfortably, no acute distress, awake alert and oriented.. HEENT: Normocephalic. Neck is supple. Pupils reactive. Nostrils clear. Oral cavity is moist. Ears reveal no drainage. Neck reveals no JVD, carotid bruits, or thyromegaly. CHEST EXAMINATION: Trachea is central. Symmetrical expansion. Bibasilar diminished air entry. Lung [place] clear to auscultation and percussion. CARDIAC: Normal S1, S2 with no gallops. No murmurs ABDOMEN: Soft. Bowel sounds normal. No organomegaly. No abdominal bruits. Extremities: reveal no edema. No clubbing or cyanosis Neurologically awake, alert, oriented x3 with well-coordinated movements. No focal deficits noted Skin: No rash or skin lesions. Psychiatric: Coperative. Nonsuicidal Musculoskeletal: No joint swelling or deformity. Normal range of motion. Results CBC & Chem 7: 08/19/18 00:20 08/19/18 00:20 Labs: Abnormal Lab Results - Last 24 Hours (Table) 08/19/18 08/19/18 08/19/18 Range/Units 00:20 07:43 08:23 Sodium 129 L (137-145) mmol/L Chloride 96 L (98-107) mmol/L Carbon Dioxide 14 L (22-30) mmol/L Glucose 110 H (74-99) mg/dL POC Glucose (mg/dL) 131 H (75-99) mg/dL AST 60 H (14-36) U/L Urine Ketones 1+ H (Negative) U Benzodiazepines Scrn Detected H (NotDetected) 08/19/18 Range/Units 11:18 Sodium (137-145) mmol/L Chloride (98-107) mmol/L Carbon Dioxide (22-30) mmol/L Glucose (74-99) mg/dL POC Glucose (mg/dL) 118 H (75-99) mg/dL AST (14-36) U/L Urine Ketones (Negative) U Benzodiazepines Scrn (NotDetected) Thrombosis Risk Factor Assmnt - DVT/VTE Prophylaxis DVT/VTE Prophylaxis: Pharmacologic Prophylaxis ordered - Choose All That Apply Any of the Below Risk Factors Present?: Yes Each Factor Represents 1 point: Obesity (BMI >25) Other Risk Factors: Yes Each Risk Factor Represents 2 Points: Age 61-74 years Other congenital or acquired thrombophilia - If yes, enter type in comment: No Thrombosis Risk Factor Assessment Total Risk Factor Score: 3 Thrombosis Risk Factor Assessment Level: Moderate Risk Assessment and Plan Assessment: Acute alcohol intoxication with alcohol level 164 on admission Severe alcohol abuse Hyponatremia likely hypovolemic Depression/adjustment disorder Hypertension Diet controlled diabetes type 2 Hypothyroidism GERD Hyperlipidemia Osteoarthritis Previous history of smoking DVT prophylaxis Plan: Patient will be continued on IV hydration. Continue with thiamine and multivitamins. Monitor for alcohol withdrawal symptoms. Continue with home medications and insulin sliding scale. GI and DVT prophylaxis. Patient has been counseled extensively for alcohol abuse and further recommendations based on the clinical course. Discussed with her daughter at bedside in detail. Time with Patient: Greater than 30
[2018-08-20] MEDS: LORazepam 2 MG/ML INJ IV PRN ×5 (03:32→22:32)
[2018-08-20] MEDS: LEVOTHYROXINE 112 MCG TAB PO SCH (06:28)
[2018-08-20 06:52] LABS: Glucose,Whole Blood 97 mg/dL (75-99)
[2018-08-20 07:56] LABS: Basophils % (A) 1 %; Eosinophils # (A) 0.1 k/uL (0-0.7); Eosinophils % (A) 1 %; HCT 39.9 % (34.0-46.0); HGB 12.7 gm/dL (11.4-16.0); Lymphocytes # (A) 1.2 k/uL (1.0-4.8); Lymphocytes % (A) 31 %; MCH 28.6 pg (25.0-35.0); MCHC 31.8 g/dL (31.0-37.0); Mean Platelet Volume 7.7; Monocytes # (A) 0.3 k/uL (0-1.0); Monocytes % (A) 8 %; Neutrophils # (A) 2.2 k/uL (1.3-7.7); Neutrophils % (A) 57 %; Platelet Count 162 k/uL (150-450); RBC 4.43 m/uL (3.80-5.40); RDW 15.2 % (11.5-15.5); WBC 3.9 k/uL (3.8-10.6)
[2018-08-20 08:14] LABS: ALT 28 U/L (9-52); AST 44 U/L (14-36); Albumin 3.6 g/dL (3.5-5.0); Alkaline Phosphatase 92 U/L (38-126); Anion Gap 9 mmol/L; Blood Urea Nitrogen 5 mg/dL (7-17); Calcium 8.5 mg/dL (8.4-10.2); Carbon Dioxide 25 mmol/L (22-30); Chloride 107 mmol/L (98-107); Glucose 190 mg/dL (74-99); Magnesium 1.8 mg/dL (1.6-2.3); Potassium 3.3 mmol/L (3.5-5.1); Sodium 141 mmol/L (137-145); Total Bilirubin 0.7 mg/dL (0.2-1.3); Total Protein 6.3 g/dL (6.3-8.2)
[2018-08-20] MEDS: MULTIVITAMINS, THERA 1 EACH TAB PO SCH ×2 (08:42→08:43)
[2018-08-20] MEDS: amLODIPine 10 MG TAB PO SCH (08:42)
[2018-08-20] MEDS: METOPROLOL SUCCINATE (ER) 50 MG TAB.ER.24H PO SCH (08:42)
[2018-08-20] MEDS: CALCIUM CARBONATE 500 MG CHEWABLE PO SCH ×2 (08:42→20:58)
[2018-08-20] MEDS: ASPIRIN 81 MG PO SCH (08:43)
[2018-08-20] MEDS: HEPARIN SODIUM,PORCINE 5,000 UNIT/ML 1 ML VIAL SQ SCH ×3 (08:43→20:58)
[2018-08-20] MEDS: SODIUM CHLORIDE 0.9% 1,000 ML IV SCH ×2 (08:43→18:08)
[2018-08-20] MEDS: CHOLECALCIFEROL 1,000 UNIT TAB PO SCH (08:43)
[2018-08-20] MEDS: PANTOPRAZOLE 40 MG TABLET PO SCH (08:43)
[2018-08-20 11:38] LABS: Glucose,Whole Blood 218 mg/dL (75-99)
[2018-08-20] MEDS: THIAMINE 100 MG TAB PO SCH ×2 (12:10→20:58)
[2018-08-20 16:59] LABS: Glucose,Whole Blood 120 mg/dL (75-99)
[2018-08-20] MEDS ORDERED: Potassium Replacement Protocol 1 EACH MISC MISCELLANE PRN (17:25)
[2018-08-20] MEDS: POTASSIUM CHLORIDE ER 20 MEQ TAB.ER PO SCH ×2 (17:52→18:02)
[2018-08-20] MEDS: LISINOPRIL 10 MG TAB PO SCH (17:52)
[2018-08-20 21:06] LABS: Glucose,Whole Blood 114 mg/dL (75-99)
--- NOTE | 2018-08-21 00:37 | P.PN ---
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 Patient says that her was placed in a chcf last week and since then patient has been drinking heavily for the past 1 week. She states that this afternoon she was on the phone with her daughter who lives across the state , her daughter became concerned that she may be intoxicated and taking her pain pills so she called EMS. EMS reports that they were contacted 3 times throughout the day today. The first 2 times the patient did admit to be intoxicated but was in her home and appeared safe he did not transport to the hospital however given the third: The concern for coingestions with narcotics decision was made for the patient's safety debris in the hospital for evaluation. Patient calm and cooperative she has no complaints she denies any suicidal ideation. 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 sodium 129 UDS positive for benzodiazepines EKG showed sinus tachycardia AST 60 Serum alcohol 164 on admission. Currently patient is awake and oriented. 08/20/2018 Patient denied any complaints of chest pain or shortness of breath. Otherwise patient feels very depressed. Sodium level improved to 133 today. Psychiatric recommendations are pending at this time. Tolerating oral diet and no complains of nausea vomiting or abdominal pain. No diarrhea. No other acute overnight issues Current medications reviewed Objective - Vital Signs Vital signs: Vital Signs Temp 98.2 F 08/20/18 21:48 Pulse 106 H 08/20/18 21:48 Resp 16 08/20/18 21:48 BP 150/84 08/20/18 21:48 Pulse Ox 97 08/20/18 21:48 Intake & Output 08/20/18 08/20/18 08/21/18 06:59 18:59 06:59 Intake Total 1200 240 590 Balance 1200 240 590 Intake: Intake, IV Titration 1200 Amount Sodium Chloride 0.9% 1, 1200 000 ml @ 75 mls/hr IV . [id number] [facility] Rx#:[id number] Oral 240 590 Other: Voiding Method Toilet Toilet # Voids 3 2 - Exam PHYSICAL EXAMINATION: Patient is lying in the bed comfortably, no acute distress, awake alert and oriented.. HEENT: Normocephalic. Neck is supple. Pupils reactive. Nostrils clear. Oral cavity is moist. Ears reveal no drainage. Neck reveals no JVD, carotid bruits, or thyromegaly. CHEST EXAMINATION: Trachea is central. Symmetrical expansion. Lung [place] clear to auscultation and percussion. CARDIAC: Normal S1, S2 with no gallops. No murmurs ABDOMEN: Soft. Bowel sounds normal. No organomegaly. No abdominal bruits. Extremities: reveal no edema. No clubbing or cyanosis Neurologically awake, alert, oriented x3 with well-coordinated movements. No focal deficits noted Skin: No rash or skin lesions. Psychiatric: Coperative. Feels depressed Musculoskeletal: No joint swelling or deformity. Normal range of motion. - Labs CBC & Chem 7: 08/20/18 07:40 08/20/18 07:40 Labs: Abnormal Lab Results - Last 24 Hours (Table) 08/20/18 08/20/18 08/20/18 Range/Units 07:40 11:36 16:57 Potassium 3.3 L (3.5-5.1) mmol/L BUN 5 L (7-17) mg/dL Glucose 190 H (74-99) mg/dL POC Glucose (mg/dL) 218 H 120 H (75-99) mg/dL AST 44 H (14-36) U/L 08/20/18 Range/Units 21:05 Potassium (3.5-5.1) mmol/L BUN (7-17) mg/dL Glucose (74-99) mg/dL POC Glucose (mg/dL) 114 H (75-99) mg/dL AST (14-36) U/L Assessment and Plan Assessment: Acute alcohol intoxication with alcohol level 164 on admission Severe alcohol abuse Hyponatremia likely hypovolemic. Improved Depression/adjustment disorder Hypertension Diet controlled diabetes type 2 Hypothyroidism GERD Hyperlipidemia Osteoarthritis Previous history of smoking DVT prophylaxis Plan: Patient will be continued on IV hydration. Continue with thiamine and multivitamins. Monitor for alcohol withdrawal symptoms. Continue with home medications and insulin sliding scale. GI and DVT prophylaxis. Patient has been counseled extensively for alcohol abuse and further recommendations based on the clinical course. Discussed with her daughter at bedside in detail. Time with Patient: Greater than 30
[2018-08-21] MEDS: LORazepam 2 MG/ML INJ IV PRN ×3 (02:27→21:56)
[2018-08-21] MEDS: LEVOTHYROXINE 112 MCG TAB PO SCH (06:06)
[2018-08-21 07:29] LABS: Glucose,Whole Blood 98 mg/dL (75-99)
[2018-08-21] MEDS: CALCIUM CARBONATE 500 MG CHEWABLE PO SCH ×2 (09:22→20:29)
[2018-08-21] MEDS: CHOLECALCIFEROL 1,000 UNIT TAB PO SCH (09:23)
[2018-08-21] MEDS: HEPARIN SODIUM,PORCINE 5,000 UNIT/ML 1 ML VIAL SQ SCH ×2 (09:23→18:06)
[2018-08-21] MEDS: amLODIPine 10 MG TAB PO SCH (09:23)
[2018-08-21] MEDS: MULTIVITAMINS, THERA 1 EACH TAB PO SCH ×2 (09:23→09:29)
[2018-08-21] MEDS: ASPIRIN 81 MG PO SCH (09:23)
[2018-08-21] MEDS: PANTOPRAZOLE 40 MG TABLET PO SCH (09:23)
[2018-08-21] MEDS: THIAMINE 100 MG TAB PO SCH ×2 (09:24→18:10)
[2018-08-21] MEDS: METOPROLOL SUCCINATE (ER) 50 MG TAB.ER.24H PO SCH (09:24)
[2018-08-21] MEDS: SODIUM CHLORIDE 0.9% 1,000 ML IV SCH ×2 (09:29→20:30)
[2018-08-21 11:05] LABS: Glucose,Whole Blood 152 mg/dL (75-99)
[2018-08-21 12:07] LABS: ALT 28 U/L (9-52); AST 49 U/L (14-36); Albumin 3.9 g/dL (3.5-5.0); Alkaline Phosphatase 87 U/L (38-126); Anion Gap 10 mmol/L; Blood Urea Nitrogen 7 mg/dL (7-17); Calcium 8.9 mg/dL (8.4-10.2); Carbon Dioxide 26 mmol/L (22-30); Chloride 103 mmol/L (98-107); Glucose 141 mg/dL (74-99); Potassium 3.8 mmol/L (3.5-5.1); Sodium 139 mmol/L (137-145); Total Bilirubin 0.7 mg/dL (0.2-1.3); Total Protein 6.8 g/dL (6.3-8.2)
--- NOTE | 2018-08-21 14:18 | P.CN ---
Psychiatric Consult - . Consult date: 08/21/18 Consult:: 08/21/18 09:57 Depression Assessment and Plan Assessment: Is a pleasant 68-year-old female who is brought to the ED today via EMS for evaluation of intoxication. Luh admits that since her was placed in a assisted last week she has been drinking heavily, she states that she's been drinking a bottle of wine every day. She states that this afternoon she was on the phone with her daughter who lives across the state, her daughter became concerned that she may be intoxicated and taking her pain pills so she called EMS. EMS reports that they were contacted 3 times throughout the day today. The first 2 times the patient did admit to be intoxicated but was in her home and appeared safe he did not transport to the hospital however given the third: The concern for coingestions with narcotics decision was made for the patient's safety debris in the hospital for evaluation. Patient calm and cooperative she has no complaints she denies any suicidal ideation. - Related Data Home Medications Medication Instructions Recorded Confirmed Levothyroxine Sodium [Synthroid] 112 mcg PO QAM 08/20/14 03/29/18 Lisinopril [Zestril] 10 mg PO DAILY@1700 08/20/14 03/29/18 Multivitamins, Thera [Multivitamin 1 tab PO DAILY 08/20/14 03/29/18 (formulary)] amLODIPine [Norvasc] 10 mg PO DAILY@1700 08/20/14 03/29/18 Atorvastatin [Lipitor] 10 mg PO QAM 11/18/17 03/29/18 Cholecalciferol [Vitamin D3] 1,000 unit PO DAILY 11/18/17 03/29/18 Garlic 1 tab PO DAILY 11/18/17 03/29/18 Metoprolol Succinate (ER) [Toprol 50 mg PO QAM 11/18/17 03/29/18 XL] Calcium Carbonate [Calcium] 600 mg PO BID 11/23/17 03/29/18 Aspirin [Adult Low Dose Aspirin EC] 81 mg PO DAILY 02/16/18 03/29/18 Hydrocodone/Acetaminophen [[place] 1 tab PO Q8H PRN 02/16/18 03/29/18 7.5-325] Previous Rx's Medication Instructions Recorded Aspirin 325 mg PO BID #60 tab 03/30/18 HYDROcodone/APAP 7.5-325MG [[place] 1 - 2 tab PO Q4-6H PRN #84 tab 03/30/18 7.5-325] Sennosides [Senokot] 1 tab PO BID #60 tablet 03/30/18 Allergies Allergy/AdvReac Type Severity Reaction Status Date / Time Sulfa (Sulfonamide Allergy Unknown Rash/Hives Verified 03/29/18 16:06 Antibiotics) Past Medical History Past Medical History: Cancer, Diabetes Mellitus, GERD/Reflux, Hyperlipidemia, Hypertension, Osteoarthritis (OA), Thyroid Disorder Additional Past Medical History / Comment(s): DIET CONTROLLED-DIABETIC , SQUAMOUS CELL -RIGHT LEG History of Any Multi-Drug Resistant Organisms: MRSA Date of last positivie culture/infection: november 2017 MDRO Source:: nose Past Surgical History: Bariatric Surgery, Section, Cholecystectomy, Joint Replacement Additional Past Surgical History / Comment(s): X2, ANNELIESE LEG NERVE SURGERY, GASTRIC [id number]. TOTAL LEFT KNEE Past Anesthesia/Blood Transfusion Reactions: Motion Sickness Additional Past Anesthesia/Blood Transfusion Reaction / Comment(s): HX OF BLOOD TRANSFUSIONS=NO REACTION Past Psychological History: Depression Smoking Status: Former smoker Past Alcohol Use History: Daily Past Drug Use History: None Reported - Past Family History Mother Family Medical History: No Reported History Father Family Medical History: Diabetes Mellitus, Hypertension Mental Status Examination - this is a 68-year-old female who is had numerous stress upon herself including her who suffering from gun gunshot wound 12 years ago and she had to place him and a assisted within the last 2 weeks. She also had been using her daughter's neck rolls her Jakob for herself and she ran out of medication and turn to alcohol because she was overwhelmed and depressed hopeless helpless. Her is a furnace cleaner and she does not believe in suicide but she states she monitors well be . General Appearance: [ casual, appears older than stated age Speech/Language: [spontaneous Attitude/Behavior: [cooperative Mood: [depressed 9 out of 10, anxious 9 out of 10,fearful, hopelessness Affect: [ flat, incongruent, labile, blunted constricted and tearful] Orientation: [time, person, place situation] Thought Content: [wnl, denies delusions, obsessions, phobias, other] Risk Factors: [Denies suicidal (ideations, plan), and/or Homicidal (ideations, plan), other] Perception: [wnl, denies hallucinations (auditory, visual, tactile), other] Thought Processes: [ concrete, circumstantial, tangential] Concentration/Attention Span: [ impaired] [Per observation and interview with the patient] Recent Memory: [wnl Remote Memory: [wnl] [past events, as related history] Intelligence: [ above average] [based on history, based on vocabulary, syntax, grammar, and content] Judgement: [ poor] [per patient's behavior/history of present illness] Insight: [good] [understanding severity of illness/history of present illness] Psychiatric impression: Major depressive disorder severe in nature Psychiatric impression: She admits that she needs help his never been to psychiatrist and/or seeing therapist and is so helpless now she wants to come to the psychiatric unit for medication therapy and overall evaluation on the biopsychosocial nature. EPS staff will come to evaluate signer and on 08/22/2018. Thank you for this most interesting consult Francois Heller D.O. PhD (1) Major depressive disorder Current Visit: Yes Status: Acute Priority: High Code(s): F32.9 - MAJOR DEPRESSIVE DISORDER, SINGLE EPISODE, UNSPECIFIED SNOMED Code(s): 363907546 Time with Patient: Less than 30
[2018-08-21 17:00] LABS: Glucose,Whole Blood 121 mg/dL (75-99)
[2018-08-21] MEDS: LISINOPRIL 10 MG TAB PO SCH (18:05)
[2018-08-21 20:23] LABS: Glucose,Whole Blood 183 mg/dL (75-99)
[2018-08-21] MEDS: MELATONIN 5 MG TABLET PO SCH (20:29)
[2018-08-22] MEDS: HEPARIN SODIUM,PORCINE 5,000 UNIT/ML 1 ML VIAL SQ SCH ×4 (00:03→23:39)
--- NOTE | 2018-08-22 01:36 | P.PN ---
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 Patient says that her was placed in a snf last week and since then patient has been drinking heavily for the past 1 week. She states that this afternoon she was on the phone with her daughter who lives across the state , her daughter became concerned that she may be intoxicated and taking her pain pills so she called EMS. EMS reports that they were contacted 3 times throughout the day today. The first 2 times the patient did admit to be intoxicated but was in her home and appeared safe he did not transport to the hospital however given the third: The concern for coingestions with narcotics decision was made for the patient's safety debris in the hospital for evaluation. Patient calm and cooperative she has no complaints she denies any suicidal ideation. 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 sodium 129 UDS positive for benzodiazepines EKG showed sinus tachycardia AST 60 Serum alcohol 164 on admission. Currently patient is awake and oriented. 08/20/2018 Patient denied any complaints of chest pain or shortness of breath. Otherwise patient feels very depressed. Sodium level improved to 133 today. Psychiatric recommendations are pending at this time. Tolerating oral diet and no complains of nausea vomiting or abdominal pain. No diarrhea. 08/21/2018 Patient denied any new complaints today. No nausea vomiting or abdominal pain. No headache or dizziness like tightness. Sodium level improved. Patient was seen by psychiatric and recommended inpatient psychiatric admission. Patient is agreeable. Anticipate discharged to psych unit once bed is available. Patient is medically stable to be transferred. No other acute overnight issues Current medications reviewed Objective - Vital Signs Vital signs: Vital Signs Temp 98.1 F 08/21/18 11:55 Pulse 105 H 08/21/18 15:35 Resp 18 08/21/18 15:35 BP 145/89 08/21/18 11:55 Pulse Ox 97 08/21/18 11:55 Intake & Output 08/21/18 08/21/18 08/22/18 06:59 18:59 06:59 Intake Total 1190 810 Balance 1190 810 Intake: Intake, IV Titration 600 450 Amount Sodium Chloride 0.9% 1, 600 450 000 ml @ 75 mls/hr IV . [id number] [facility] Rx#:[id number] Oral 590 360 Other: Voiding Method Toilet Toilet # Voids 2 3 - Exam PHYSICAL EXAMINATION: Patient is lying in the bed comfortably, no acute distress, awake alert and oriented.. HEENT: Normocephalic. Neck is supple. Pupils reactive. Nostrils clear. Oral cavity is moist. Ears reveal no drainage. Neck reveals no JVD, carotid bruits, or thyromegaly. CHEST EXAMINATION: Trachea is central. Symmetrical expansion. Lung [place] clear to auscultation and percussion. CARDIAC: Normal S1, S2 with no gallops. No murmurs ABDOMEN: Soft. Bowel sounds normal. No organomegaly. No abdominal bruits. Extremities: reveal no edema. No clubbing or cyanosis Neurologically awake, alert, oriented x3 with well-coordinated movements. No focal deficits noted Skin: No rash or skin lesions. Psychiatric: Coperative. Feels depressed Musculoskeletal: No joint swelling or deformity. Normal range of motion. - Labs CBC & Chem 7: 08/20/18 07:40 08/21/18 11:35 Labs: Abnormal Lab Results - Last 24 Hours (Table) 08/21/18 08/21/18 08/21/18 Range/Units 11:00 11:35 16:58 Glucose 141 H (74-99) mg/dL POC Glucose (mg/dL) 152 H 121 H (75-99) mg/dL AST 49 H (14-36) U/L 08/21/18 Range/Units 20:21 Glucose (74-99) mg/dL POC Glucose (mg/dL) 183 H (75-99) mg/dL AST (14-36) U/L Assessment and Plan Assessment: Acute alcohol intoxication with alcohol level 164 on admission Severe alcohol abuse Hyponatremia likely hypovolemic. Improved Depression/adjustment disorder Hypertension Diet controlled diabetes type 2 Hypothyroidism GERD Hyperlipidemia Osteoarthritis Previous history of smoking DVT prophylaxis Plan: Patient will be continued on IV hydration. Continue with thiamine and multivitamins. Monitor for alcohol withdrawal symptoms. Continue with home medications and insulin sliding scale. GI and DVT prophylaxis. Patient has been counseled extensively for alcohol abuse and further recommendations based on the clinical course. Discussed with her daughter at bedside in detail. Time with Patient: Greater than 30
[2018-08-22] MEDS: LEVOTHYROXINE 112 MCG TAB PO SCH (06:06)
[2018-08-22 07:21] LABS: Glucose,Whole Blood 112 mg/dL (75-99)
[2018-08-22] MEDS ORDERED: LORazepam 0.5 MG TAB PO ONE (07:48)
[2018-08-22] MEDS: ASPIRIN 81 MG PO SCH (07:54)
[2018-08-22] MEDS: CHOLECALCIFEROL 1,000 UNIT TAB PO SCH (07:55)
[2018-08-22] MEDS: CALCIUM CARBONATE 500 MG CHEWABLE PO SCH ×2 (07:55→20:57)
[2018-08-22] MEDS: amLODIPine 10 MG TAB PO SCH (07:55)
[2018-08-22] MEDS: METOPROLOL SUCCINATE (ER) 50 MG TAB.ER.24H PO SCH (07:55)
[2018-08-22] MEDS: PANTOPRAZOLE 40 MG TABLET PO SCH (07:55)
[2018-08-22] MEDS: SODIUM CHLORIDE 0.9% 1,000 ML IV SCH ×2 (08:04→20:57)
[2018-08-22 11:23] LABS: Glucose,Whole Blood 114 mg/dL (75-99)
[2018-08-22] MEDS: MULTIVITAMINS, THERA 1 EACH TAB PO SCH ×2 (11:24→11:52)
[2018-08-22] MEDS: THIAMINE 100 MG TAB PO SCH ×2 (11:52→17:31)
[2018-08-22] MEDS ORDERED: LORazepam 0.5 MG TAB PO STA (15:40)
[2018-08-22] MEDS: LISINOPRIL 10 MG TAB PO SCH (17:31)
[2018-08-22 17:33] LABS: Glucose,Whole Blood 117 mg/dL (75-99)
[2018-08-22 20:04] LABS: Glucose,Whole Blood 150 mg/dL (75-99)
[2018-08-22 20:47] LABS: Hemoglobin A1C 5.9 % (4.0-6.0)
[2018-08-22] MEDS: MELATONIN 5 MG TABLET PO SCH (20:57)
--- NOTE | 2018-08-23 01:26 | P.DS ---
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 Patient says that her was placed in a group home last week and since then patient has been drinking heavily for the past 1 week. She states that this afternoon she was on the phone with her daughter who lives across the state , her daughter became concerned that she may be intoxicated and taking her pain pills so she called EMS. EMS reports that they were contacted 3 times throughout the day today. The first 2 times the patient did admit to be intoxicated but was in her home and appeared safe he did not transport to the hospital however given the third: The concern for coingestions with narcotics decision was made for the patient's safety debris in the hospital for evaluation. Patient calm and cooperative she has no complaints she denies any suicidal ideation. 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 sodium 129 UDS positive for benzodiazepines EKG showed sinus tachycardia AST 60 Serum alcohol 164 on admission. Currently patient is awake and oriented. 08/20/2018 Patient denied any complaints of chest pain or shortness of breath. Otherwise patient feels very depressed. Sodium level improved to 133 today. Psychiatric recommendations are pending at this time. Tolerating oral diet and no complains of nausea vomiting or abdominal pain. No diarrhea. 08/21/2018 Patient denied any new complaints today. No nausea vomiting or abdominal pain. No headache or dizziness like tightness. Sodium level improved. Patient was seen by psychiatric and recommended inpatient psychiatric admission. Patient is agreeable. Anticipate discharged to psych unit once bed is available. Patient is medically stable to be transferred. No other acute overnight issues Patient Condition at Discharge: Stable Plan - Discharge Summary New Discharge Prescriptions: New Acetaminophen Tab [Tylenol] 500 mg PO Q6HR PRN tab PRN Reason: Fever And/ Or Pain Melatonin 5 mg PO HS tablet Multivitamins, Thera [Multivitamin (formulary)] 1 each PO DAILY@1200 tab Pantoprazole [Protonix] 40 mg PO AC-BRKFST tablet. Thiamine [Vitamin B-1] 100 mg PO BID@1200,1700 tab Continue amLODIPine [Norvasc] 10 mg PO DAILY Multivitamins, Thera [Multivitamin (formulary)] 1 tab PO DAILY Lisinopril [Zestril] 10 mg PO DAILY@1700 Levothyroxine Sodium [Synthroid] 112 mcg PO QAM Metoprolol Succinate (ER) [Toprol XL] 50 mg PO QAM Garlic 1 tab PO DAILY Cholecalciferol [Vitamin D3] 1,000 unit PO DAILY Calcium Carbonate [Calcium] 600 mg PO BID Hydrocodone/Acetaminophen [[place] 7.5-325] 1 tab PO Q8H PRN PRN Reason: Pain Aspirin [Adult Low Dose Aspirin EC] 81 mg PO DAILY Discharge Medication List Levothyroxine Sodium [Synthroid] 112 mcg PO QAM 08/20/14 [History] Lisinopril [Zestril] 10 mg PO DAILY@1700 08/20/14 [History] Multivitamins, Thera [Multivitamin (formulary)] 1 tab PO DAILY 08/20/14 [History ] amLODIPine [Norvasc] 10 mg PO DAILY 08/20/14 [History] Cholecalciferol [Vitamin D3] 1,000 unit PO DAILY 11/18/17 [History] Garlic 1 tab PO DAILY 11/18/17 [History] Metoprolol Succinate (ER) [Toprol XL] 50 mg PO QAM 11/18/17 [History] Calcium Carbonate [Calcium] 600 mg PO BID 11/23/17 [History] Aspirin [Adult Low Dose Aspirin EC] 81 mg PO DAILY 02/16/18 [History] Hydrocodone/Acetaminophen [[place] 7.5-325] 1 tab PO Q8H PRN 02/16/18 [History] Acetaminophen Tab [Tylenol] 500 mg PO Q6HR PRN tab 08/22/18 [Rx] Melatonin 5 mg PO HS tablet 08/22/18 [Rx] Multivitamins, Thera [Multivitamin (formulary)] 1 each PO DAILY@1200 tab [Rx] Pantoprazole [Protonix] 40 mg PO AC-BRKFST tablet. 08/22/18 [Rx] Thiamine [Vitamin B-1] 100 mg PO BID@1200,1700 tab 08/22/18 [Rx] Follow up Appointment(s)/Referral(s): Imelda Beckham III, MD [Primary Care Provider] - 1-2 days Patient Instructions/Handouts: Hyponatremia (DC) Discharge Disposition: TRANSFER TO PSYCH HOSP/UNIT
[2018-08-23] MEDS: LEVOTHYROXINE 112 MCG TAB PO SCH (05:57)
[2018-08-23] MEDS: LORazepam 1 MG TAB PO PRN ×3 (06:32→19:18)
[2018-08-23 06:59] LABS: Glucose,Whole Blood 128 mg/dL (75-99)
[2018-08-23] MEDS: amLODIPine 10 MG TAB PO SCH (08:36)
[2018-08-23] MEDS: PANTOPRAZOLE 40 MG TABLET PO SCH (08:36)
[2018-08-23] MEDS: METOPROLOL SUCCINATE (ER) 50 MG TAB.ER.24H PO SCH (08:36)
[2018-08-23] MEDS: HEPARIN SODIUM,PORCINE 5,000 UNIT/ML 1 ML VIAL SQ SCH ×3 (08:36→23:34)
[2018-08-23] MEDS: CALCIUM CARBONATE 500 MG CHEWABLE PO SCH ×2 (08:36→21:01)
[2018-08-23] MEDS: CHOLECALCIFEROL 1,000 UNIT TAB PO SCH (08:36)
[2018-08-23] MEDS: ASPIRIN 81 MG PO SCH (08:36)
[2018-08-23] MEDS: SODIUM CHLORIDE 0.9% 1,000 ML IV SCH ×2 (08:39→23:35)
[2018-08-23] MEDS: MULTIVITAMINS, THERA 1 EACH TAB PO SCH ×3 (11:04→13:10)
[2018-08-23 11:06] LABS: Glucose,Whole Blood 117 mg/dL (75-99)
[2018-08-23] MEDS: THIAMINE 100 MG TAB PO SCH ×2 (12:50→17:28)
--- NOTE | 2018-08-23 13:00 | P.DS ---
Providers Date of admission: 08/19/18 14:35 Expected date of discharge: 08/23/18 Attending physician: Chandra Varghese Consults: 08/20/18 18:15 Consult Physician Routine Consulting Provider: Francois Heller Consult Reason/Comments: depression Do you want consulting provider notified?: Yes 08/23/18 06:29 Consult Physician Routine Consulting Provider: Isidro [place] Consult Reason/Comments: Chest pain Do you want consulting provider notified?: Yes Primary care physician: Imelda Beckham Hospital Course: Final Diagnoses: Acute alcohol intoxication with alcohol level 164 on admission, improved Severe alcohol abuse Hyponatremia likely hypovolemic. 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 Patient says that her was placed in a care home last week and since then patient has been drinking heavily for the past 1 week. She states that this afternoon she was on the phone with her daughter who lives across the state , her daughter became concerned that she may be intoxicated and taking her pain pills so she called EMS. EMS reports that they were contacted 3 times throughout the day today. The first 2 times the patient did admit to be intoxicated but was in her home and appeared safe he did not transport to the hospital however given the third: The concern for coingestions with narcotics decision was made for the patient's safety debris in the hospital for evaluation. Patient calm and cooperative she has no complaints she denies any suicidal ideation. 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 sodium 129 UDS positive for benzodiazepines EKG showed sinus tachycardia AST 60 Serum alcohol 164 on admission. Currently patient is awake and oriented. 08/20/2018 Patient denied any complaints of chest pain or shortness of breath. Otherwise patient feels very depressed. Sodium level improved to 133 today. Psychiatric recommendations are pending at this time. Tolerating oral diet and no complains of nausea vomiting or abdominal pain. No diarrhea. 08/21/2018 Patient denied any new complaints today. No nausea vomiting or abdominal pain. No headache or dizziness like tightness. Sodium level improved. Patient was seen by psychiatric and recommended inpatient psychiatric admission. Patient is agreeable. Anticipate discharged to psych unit once bed is available. Patient is medically stable to be transferred. Evaluated by psychiatry regarding depression, with patient to be discharged to mental health unit. This morning developed panic attack, chest pain upon being awoken at 4:30 AM. Troponin negative, EKG sinus tachycardia; evaluated by cardiology, no interventions recommended and cleared for discharge. Denies chest pain, palpitations or increased shortness of breath. Patient is being discharged to mental health unit in a stable condition with guarded prognosis. - Exam PHYSICAL EXAMINATION: Patient is lying in the bed comfortably, no acute distress, awake alert and oriented.. HEENT: Normocephalic. Neck is supple. Pupils reactive. Nostrils clear. Oral cavity is moist. Neck reveals no JVD, carotid bruits, or thyromegaly. CHEST EXAMINATION: Trachea is central. Symmetrical expansion. Lung [place] clear to auscultation and percussion. CARDIAC: Normal S1, S2 with no gallops. No murmurs ABDOMEN: Soft. Bowel sounds normal. No organomegaly. No abdominal bruits. Extremities: reveal no edema. No clubbing or cyanosis Neurologically awake, alert, oriented x3 with well-coordinated movements. No focal deficits note The impression and plan of care has been dictated as directed. : I performed a history and examination of this patient, discussed the same with the dictator. I agree with the dictator's note ,documented as a scribe. Any additional findings or plans will be noted. Time taken: 35 minutes Patient Condition at Discharge: Stable Plan - Discharge Summary New Discharge Prescriptions: New Acetaminophen Tab [Tylenol] 500 mg PO Q6HR PRN tab PRN Reason: Fever And/ Or Pain Melatonin 5 mg PO HS tablet Multivitamins, Thera [Multivitamin (formulary)] 1 each PO DAILY@1200 tab Pantoprazole [Protonix] 40 mg PO AC-BRKFST tablet. Thiamine [Vitamin B-1] 100 mg PO BID@1200,1700 tab Continue amLODIPine [Norvasc] 10 mg PO DAILY Multivitamins, Thera [Multivitamin (formulary)] 1 tab PO DAILY Lisinopril [Zestril] 10 mg PO DAILY@1700 Levothyroxine Sodium [Synthroid] 112 mcg PO QAM Metoprolol Succinate (ER) [Toprol XL] 50 mg PO QAM Garlic 1 tab PO DAILY Cholecalciferol [Vitamin D3] 1,000 unit PO DAILY Calcium Carbonate [Calcium] 600 mg PO BID Hydrocodone/Acetaminophen [[place] 7.5-325] 1 tab PO Q8H PRN PRN Reason: Pain Aspirin [Adult Low Dose Aspirin EC] 81 mg PO DAILY Discharge Medication List Levothyroxine Sodium [Synthroid] 112 mcg PO QAM 08/20/14 [History] Lisinopril [Zestril] 10 mg PO DAILY@1700 08/20/14 [History] Multivitamins, Thera [Multivitamin (formulary)] 1 tab PO DAILY 08/20/14 [History ] amLODIPine [Norvasc] 10 mg PO DAILY 08/20/14 [History] Cholecalciferol [Vitamin D3] 1,000 unit PO DAILY 11/18/17 [History] Garlic 1 tab PO DAILY 11/18/17 [History] Metoprolol Succinate (ER) [Toprol XL] 50 mg PO QAM 11/18/17 [History] Calcium Carbonate [Calcium] 600 mg PO BID 11/23/17 [History] Aspirin [Adult Low Dose Aspirin EC] 81 mg PO DAILY 02/16/18 [History] Hydrocodone/Acetaminophen [[place] 7.5-325] 1 tab PO Q8H PRN 02/16/18 [History] Acetaminophen Tab [Tylenol] 500 mg PO Q6HR PRN tab 08/22/18 [Rx] Melatonin 5 mg PO HS tablet 08/22/18 [Rx] Multivitamins, Thera [Multivitamin (formulary)] 1 each PO DAILY@1200 tab [Rx] Pantoprazole [Protonix] 40 mg PO AC-BRKFST tablet. 08/22/18 [Rx] Thiamine [Vitamin B-1] 100 mg PO BID@1200,1700 tab 08/22/18 [Rx] Follow up Appointment(s)/Referral(s): Imelda Beckham III, MD [Primary Care Provider] - 1-2 days Patient Instructions/Handouts: Hyponatremia (DC) Activity/Diet/Wound Care/Special Instructions: Discharge TO [facility] Discharge Disposition: TRANSFER TO PSYCH HOSP/UNIT
--- NOTE | 2018-08-23 13:31 | P.CRDCN ---
History of Present Illness Consult date: 08/23/18 Chief complaint: Chest pain History of present illness: This is a pleasant 68-year-old female patient who we get consulted to see the patient because of chest discomfort. The patient does have a past medical history significant for hypertension as well as dyslipidemia. She was brought to the hospital via EMS because of acute alcohol intoxication. The patient stated that she was drinking significant amount of alcohol lately. Early this morning she did have an episode of chest discomfort. The patient described the discomfort as sharp kind of discomfort, in the mid of the chest, without any radiation to the arm or neck or shoulders and without any associated symptoms of shortness of breath, sweating, dizziness or lightheadedness, or syncope. The EKG shows sinus rhythm without any significant ST or T-wave abnormalities. The cardiac enzymes were checked and came in to be unremarkable. The patient does also have a panic attack. She stated that every time she has a panic attack she does have chest discomfort with it. No history of established coronary artery disease. 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 Past Medical History Past Medical History: Cancer, Diabetes Mellitus, GERD/Reflux, Hyperlipidemia, Hypertension, Osteoarthritis (OA), Thyroid Disorder Additional Past Medical History / Comment(s): DIET CONTROLLED-DIABETIC , SQUAMOUS CELL -RIGHT LEG History of Any Multi-Drug Resistant Organisms: MRSA Date of last positivie culture/infection: november 2017 MDRO Source:: nose Past Surgical History: Bariatric Surgery, Section, Cholecystectomy, Joint Replacement Additional Past Surgical History / Comment(s): X2, ANNELIESE LEG NERVE SURGERY, GASTRIC [id number]. TOTAL LEFT KNEE, total right hip Past Anesthesia/Blood Transfusion Reactions: Motion Sickness Additional Past Anesthesia/Blood Transfusion Reaction / Comment(s): HX OF BLOOD TRANSFUSIONS=NO REACTION Past Psychological History: Depression Additional Psychological History / Comment(s): SEASONAL AFFECTIVE DISORDER-pt states this was not a problem this past winter. Pt resides with her spouse for whom she is caregiver. 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 Pt uses no assistive devices. She drives. Smoking Status: Former smoker Past Alcohol Use History: Daily, Heavy Additional Past Alcohol Use History / Comment(s): Pt started smoking in 1967 and quit May of 1989. SMOKED ON AND OFF - SMOKED 1PPD Past Drug Use History: None Reported - Past Family History Mother Family Medical History: No Reported History Father Family Medical History: Diabetes Mellitus, Hypertension Medications and Allergies Home Medications Medication Instructions Recorded Confirmed Type Levothyroxine Sodium [Synthroid] 112 mcg PO QAM 08/20/14 08/19/18 History Lisinopril [Zestril] 10 mg PO DAILY@1700 08/20/14 08/19/18 History Multivitamins, Thera [Multivitamin 1 tab PO DAILY 08/20/14 08/19/18 History (formulary)] amLODIPine [Norvasc] 10 mg PO DAILY 08/20/14 08/19/18 History Cholecalciferol [Vitamin D3] 1,000 unit PO DAILY 11/18/17 08/19/18 History Garlic 1 tab PO DAILY 11/18/17 08/19/18 History Metoprolol Succinate (ER) [Toprol 50 mg PO QAM 11/18/17 08/19/18 History XL] Calcium Carbonate [Calcium] 600 mg PO BID 11/23/17 08/19/18 History Aspirin [Adult Low Dose Aspirin EC] 81 mg PO DAILY 02/16/18 08/19/18 History Hydrocodone/Acetaminophen [[place] 1 tab PO Q8H PRN 02/16/18 08/19/18 History 7.5-325] Acetaminophen Tab [Tylenol] 500 mg PO Q6HR PRN tab 08/22/18 Rx Melatonin 5 mg PO HS tablet 08/22/18 Rx Multivitamins, Thera [Multivitamin 1 each PO DAILY@1200 tab 08/22/18 Rx (formulary)] Pantoprazole [Protonix] 40 mg PO AC-BRKFST tablet. 08/22/18 Rx Thiamine [Vitamin B-1] 100 mg PO BID@1200,1700 tab 08/22/18 Rx Allergies Allergy/AdvReac Type Severity Reaction Status Date / Time Sulfa (Sulfonamide Allergy Unknown Rash/Hives Verified 03/29/18 16:06 Antibiotics) Physical Exam Vitals: Vital Signs Temp Pulse Resp BP BP Pulse Ox 08/23/18 12:02 85 18 168/95 166/101 98 08/23/18 07:20 98.1 F 84 16 147/92 97 08/23/18 05:37 84 20 98 08/23/18 05:18 98.0 F 76 18 146/97 99 08/23/18 04:45 97.6 F 83 18 151/97 99 08/22/18 21:00 98.1 F 88 18 149/92 96 Intake and Output 08/22/18 08/23/18 08/23/18 22:59 06:59 14:59 Intake Total 980 840 Balance 980 840 Intake: Intake, IV Titration 300 600 Amount Sodium Chloride 0.9% 1, 300 600 000 ml @ 75 mls/hr IV . [id number] SARITHA Rx#:[id number] Oral 680 240 Other: Voiding Method Toilet Toilet # Voids 1 2 1 # Bowel Movements 1 - Constitutional General appearance: no acute distress - Respiratory Respiratory: bilateral: CTA - Cardiovascular Rhythm: regular Heart sounds: normal: S1, S2 Results 08/20/18 07:40 08/21/18 11:35 Cardiac Enzymes 08/23/18 Range/Units 07:09 Troponin I <0.012 (0.000-0.034) ng/mL Current Medications Generic Name Dose Route Start Last Admin Trade Name Freq PRN Reason Stop Dose Admin Acetaminophen 500 mg 08/19/18 15:15 08/19/18 17:40 Tylenol Tab PO 500 mg Q6HR PRN Administration Fever and/ or Pain Amlodipine Besylate 10 mg 08/20/18 09:00 08/23/18 08:36 Norvasc PO 10 mg DAILY SARITHA Administration Aspirin 81 mg 08/20/18 09:00 08/23/18 08:36 Aspirin PO 81 mg DAILY SARITHA Administration Calcium Carbonate/Glycine 500 mg 08/19/18 21:00 08/23/18 08:36 Tums PO 500 mg BID SARITHA Administration Cholecalciferol 1,000 unit 08/20/18 09:00 08/23/18 08:36 Vitamin D3 PO 1,000 unit DAILY SARITHA Administration Heparin Sodium (Porcine) 5,000 unit 08/19/18 16:00 08/23/18 08:36 Heparin SQ 5,000 unit Q8HR SARITHA Administration Sodium Chloride 1,000 mls @ 75 mls/hr 08/19/18 01:30 08/23/18 08:39 Saline 0.9% IV 75 mls/hr .[id number] SARITHA Administration Levothyroxine Sodium 112 mcg 08/20/18 06:30 08/23/18 05:57 Synthroid PO 112 mcg 0630 SARITHA Administration Lisinopril 10 mg 08/19/18 17:00 08/22/18 17:31 Zestril PO 10 mg DAILY@1700 SARITHA Administration Lorazepam 1 mg 08/19/18 01:29 08/21/18 21:56 Ativan IV 1 mg Q2HR PRN Administration CIWA 8 or 9 Lorazepam 1 mg 08/19/18 01:29 Ativan IV Q1HR PRN CIWA 10 to 15 Lorazepam 2 mg 08/19/18 01:29 Ativan IV Q6HR PRN Seizures Lorazepam 1 mg 08/23/18 06:22 08/23/18 12:50 Ativan PO 1 mg Q6HR PRN Administration Anxiety Melatonin 5 mg 08/21/18 21:00 08/22/18 20:57 Melatonin PO 5 mg HS SARITHA Administration Metoprolol Succinate 50 mg 08/20/18 09:00 08/23/18 08:36 Toprol Xl PO 50 mg QAM SARITHA Administration Miscellaneous Information 1 each 08/20/18 17:25 Potassium Per Protocol MISCELLANE DAILY PRN Per Protocol Protocol Multivitamins 1 each 08/19/18 12:00 08/23/18 13:10 Theragran PO Not Given DAILY@1200 SARITHA Naloxone HCl 0.2 mg 08/19/18 01:28 Narcan IV Q2M PRN Opioid Reversal Ondansetron HCl 4 mg 08/19/18 15:17 Zofran IVP Q6HR PRN Nausea And Vomiting Pantoprazole Sodium 40 mg 08/19/18 15:30 08/23/18 08:36 Protonix PO 40 mg AC-BRKFST SARITHA Administration Thiamine HCl 100 mg 08/19/18 17:00 08/23/18 12:50 Vitamin B-1 PO 100 mg BID@1200,1700 SARITHA Administration Intake and Output 08/22/18 08/23/18 08/23/18 22:59 06:59 14:59 Intake Total 980 840 Balance 980 840 Intake: Intake, IV Titration 300 600 Amount Sodium Chloride 0.9% 1, 300 600 000 ml @ 75 mls/hr IV . [id number] SARITHA Rx#:[id number] Oral 680 240 Other: Voiding Method Toilet Toilet # Voids 1 2 1 # Bowel Movements 1 08/20/18 07:40 08/21/18 11:35 Assessment and Plan Assessment: Assessment #1 when episode of atypical chest discomfort #2 hypertension doesn't seems to be well-controlled #3 dyslipidemia #4 panic attack #5 multiple comorbid conditions Plan #1 follow-up on the serial cardiac enzymes. #2 if enzymes are normal and the patient does not have anymore episodes of chest discomfort she might be able to be transferred to the psych unit #3 obtain a stress test a few patient developed anymore episode of chest discomfort #4 obtain an echocardiogram was Doppler #5 follow-up with the patient.
[2018-08-23 13:54] LABS: Cholesterol 199 mg/dL (<200); HDL Cholesterol 93 mg/dL (40-60); LDL Cholesterol,Calculated 68 mg/dL (0-99); Triglycerides 190 mg/dL (<150)
[2018-08-23 17:02] LABS: Glucose,Whole Blood 109 mg/dL (75-99)
[2018-08-23] MEDS: LISINOPRIL 20 MG TAB PO SCH (17:28)
[2018-08-23 20:10] LABS: Glucose,Whole Blood 173 mg/dL (75-99)
[2018-08-23] MEDS: MELATONIN 5 MG TABLET PO SCH (21:01)
[2018-08-24] MEDS: LORazepam 1 MG TAB PO PRN ×4 (04:37→20:50)
[2018-08-24] MEDS: ACETAMINOPHEN TAB 500 MG TAB PO PRN ×3 (06:11→20:50)
[2018-08-24] MEDS: LEVOTHYROXINE 112 MCG TAB PO SCH (06:11)
[2018-08-24 07:00] LABS: Glucose,Whole Blood 132 mg/dL (75-99)
[2018-08-24] MEDS: HEPARIN SODIUM,PORCINE 5,000 UNIT/ML 1 ML VIAL SQ SCH ×3 (07:40→23:01)
[2018-08-24] MEDS: PANTOPRAZOLE 40 MG TABLET PO SCH (07:40)
[2018-08-24] MEDS: amLODIPine 10 MG TAB PO SCH (09:50)
[2018-08-24] MEDS: METOPROLOL SUCCINATE (ER) 50 MG TAB.ER.24H PO SCH (09:50)
[2018-08-24] MEDS: MULTIVITAMINS, THERA 1 EACH TAB PO SCH (09:50)
[2018-08-24] MEDS: ASPIRIN 81 MG PO SCH (09:50)
[2018-08-24] MEDS: CALCIUM CARBONATE 500 MG CHEWABLE PO SCH ×2 (09:50→20:27)
[2018-08-24] MEDS: CHOLECALCIFEROL 1,000 UNIT TAB PO SCH (09:50)
[2018-08-24] MEDS: THIAMINE 100 MG TAB PO SCH ×2 (09:51→16:52)
[2018-08-24 10:57] LABS: Glucose,Whole Blood 131 mg/dL (75-99)
--- NOTE | 2018-08-24 13:36 | ECHOF ---
Referral Reason:cp MEASUREMENTS -------- HEIGHT: 167.6 cm WEIGHT: 95.3 kg BP: 147/92 RVIDd: 3.0 cm (< 3.3) IVSd: 1.5 cm (0.6 - 1.1) LVIDd: 2.9 cm (3.9 - 5.3) LVPWd: 1.4 cm (0.6 - 1.1) IVSs: 1.6 cm LVIDs: 1.6 cm LVPWs: 1.5 cm LA Diam: 3.3 cm (2.7 - 3.8) Ao Diam: 3.3 cm (2.0 - 3.7) AV Cusp: 2.4 cm (1.5 - 2.6) LA Diam: 2.6 cm (2.7 - 3.8) MV E Jay Jay: 0.53 m/s MV DecT: 199 ms MV A [place]: 0.72 m/s MV E/A Ratio: 0.74 RAP: 5.00 mmHg RVSP: 13.69 mmHg FINDINGS -------- Sinus rhythm. This was a technically adequate study. The left ventricular size is normal. There is moderate concentric left ventricular hypertrophy. O verall left ventricular systolic function is normal with, an EF between 55 - 60 %. Sigmoid Septum The right ventricle is normal in size and function. The left atrial size is normal. The right atrium is normal in size. Aortic valve is trileaflet and is mildly thickened. There is no evidence of aortic regurgitation. There is no evidence of aortic stenosis. The mitral valve leaflets are mildly thickened. Mild mitral annular calcification present. There is trace to mild mitral regurgitation. An echdensity attached to the anterior MVL, vegetation to be r/o. BAO is advised. Trace tricuspid regurgitation present. Right ventricular systolic pressure is normal at < 35 mmHg. There is no evidence of pulmonary hypertension. The pulmonic valve was not well visualized. The aortic root size is normal. Normal inferior vena cava with normal inspiratory collapse consistent with estimated right atrial pre ssure of 5 mmHg. There is no pericardial effusion. CONCLUSIONS -------- 1. Sinus rhythm. 2. This was a technically adequate study. 3. The left ventricular size is normal. 4. There is moderate concentric left ventricular hypertrophy. 5. Overall left ventricular systolic function is normal with, an EF between 55 - 60 %. 6. Sigmoid Septum 7. The left atrial size is normal. 8. Aortic valve is trileaflet and is mildly thickened. 9. The mitral valve leaflets are mildly thickened. 10. Mild mitral annular calcification present. 11. There is trace to mild mitral regurgitation. 12. An echdensity attached to the anterior MVL, vegetation to be r/o. BAO is advised. 13. Trace tricuspid regurgitation present. 14. Right ventricular systolic pressure is normal at < 35 mmHg. 15. There is no evidence of pulmonary hypertension. 16. The pulmonic valve was not well visualized. 17. The aortic root size is normal. 18. There is no pericardial effusion. SHIRT CLEANER: Jhony Mahan RDCS
--- NOTE | 2018-08-24 14:00 | P.PN ---
Subjective This is a pleasant 68-year-old female past medical history significant for hypertension, dyslipidemia, diabetes mellitus, hypothyroidism and chronic alcohol abuse. She is seen and examined sitting up eating lunch in no acute distress. She denies any further symptoms of chest discomfort, shortness of breath, dizziness or palpitations. Echocardiogram obtained reveals preserved left ventricular systolic function with ejection fraction 55- 60%, there is noted to be an echodensity To the anterior mitral valve leaflet thickening be suggestive of vegetation versus calcification. Laboratory data reviewed, cardiac enzymes negative 3. Blood pressure 127/85 heart rate 67 afebrile maintaining oxygen saturation on room air. Currently maintained on amlodipine 10 mg daily, aspirin 81 mg daily, lisinopril 20 mg daily and Toprol 50 mg daily. GENERAL: Well-appearing, well-nourished and in no acute distress. NECK: Supple without JVD or thyromegaly. LUNGS: Breath sounds clear to auscultation bilaterally. Respiration equal and unlabored. No wheezes, rales or rhonchi. HEART: Regular rate and rhythm without murmurs, rubs or gallops. S1 and S2 heard. EXTREMITIES: Normal range of motion, no edema. No clubbing or cyanosis. Peripheral pulses intact. ASSESSMENT Chest pain, atypical. An acute coronary event has been ruled out. Hypertension Dyslipidemia Diabetes mellitus Admitted with acute alcohol intoxication with a history of alcohol abuse PLAN An acute coronary event has been ruled out with EKG evidence of acute ischemia negative cardiac enzymes. Lisinopril was increased yesterday and blood pressure is under much better control. Echocardiogram findings discussed in great detail with the patient as well as her daughter. We recommend proceeding with a BAO for further evaluation of the mitral valve. This echodensity could be benefits representative of vegetation or calcification of the mitral valve. However he was unable to be ruled out as a vegetation on the transthoracic echocardiogram. The BAO has been explained to the patient and she is agreeable to move forward with the procedure tomorrow morning. She will be nothing by mouth after midnight tonight. Further recommendations based upon BAO findings. Obtain blood cultures. Nurse Practitioner note has been reviewed, I agree with a documented findings and plan of care. Patient was seen and examined. Objective - Vital Signs Vital signs: Vital Signs Temp 98.5 F 08/24/18 11:35 Pulse 67 08/24/18 11:35 Resp 20 08/24/18 11:35 BP 127/85 08/24/18 11:35 Pulse Ox 100 08/24/18 11:35 Intake & Output 08/23/18 08/24/18 08/24/18 18:59 06:59 18:59 Intake Total 600 1080 1240 Balance 600 1080 1240 Intake: Intake, IV Titration 600 640 Amount Sodium Chloride 0.9% 1, 600 640 000 ml @ 75 mls/hr IV . [id number] SARITHA Rx#:[id number] Oral 1080 600 Other: Voiding Method Toilet Toilet Toilet # Voids 1 1 # Bowel Movements 1 - Labs CBC & Chem 7: 08/20/18 07:40 08/21/18 11:35 Labs: Abnormal Lab Results - Last 24 Hours (Table) 08/23/18 08/23/18 08/23/18 Range/Units 13:18 17:01 20:09 POC Glucose (mg/dL) 109 H 173 H (75-99) mg/dL Triglycerides 190 H (<150) mg/dL HDL Cholesterol 93 H (40-60) mg/dL 08/24/18 08/24/18 Range/Units 06:58 10:55 POC Glucose (mg/dL) 132 H 131 H (75-99) mg/dL Triglycerides (<150) mg/dL HDL Cholesterol (40-60) mg/dL
[2018-08-24] MEDS: LISINOPRIL 20 MG TAB PO SCH (16:52)
[2018-08-24 17:08] LABS: Glucose,Whole Blood 167 mg/dL (75-99)
[2018-08-24 20:01] LABS: Glucose,Whole Blood 134 mg/dL (75-99)
[2018-08-24] MEDS: MELATONIN 5 MG TABLET PO SCH (20:28)
[2018-08-25] MEDS: SODIUM CHLORIDE 0.9% 1,000 ML IV SCH ×2 (01:54→06:02)
[2018-08-25] MEDS: LEVOTHYROXINE 112 MCG TAB PO SCH (05:31)
[2018-08-25 05:32] VITALS: RESP 16
[2018-08-25 07:40] LABS: Glucose,Whole Blood 107 mg/dL (75-99)
[2018-08-25] MEDS: HEPARIN SODIUM,PORCINE 5,000 UNIT/ML 1 ML VIAL SQ SCH ×2 (07:48→16:43)
[2018-08-25] MEDS ORDERED: IV FLUID CONTINUATION 1,000 ML IV ONE (10:21)
[2018-08-25] MEDS ORDERED: BENZOCAINE SPRAY 1 CAN MUCOUS MEM ONE ×2 (10:29→10:43)
[2018-08-25] MEDS ORDERED: fentaNYL (PF) 50 MCG/ML 2 ML AMP IV ONE (10:44)
[2018-08-25] MEDS: MIDAZOLAM 2 MG/2 ML VIAL IV ONE ×2 (10:44→10:47)
--- NOTE | 2018-08-25 11:46 | ECHOT ---
TRANSESOPHAGEAL ECHOCARDIOGRAM DATE OF SERVICE: August 25, 2018 PERFORMING PHYSICIAN: Pawel Silva MD, apprentice lineman [employer]. PROCEDURE PERFORMED: Transesophageal echocardiogram. INDICATION: This is a pleasant 68-year-old female patient who was admitted to the hospital with chest discomfort and underwent an echocardiogram and that revealed possible vegetations located on the posterior and anterior mitral leaflet. BAO was advised COMPLICATION: None. LEVEL OF SEDATION: Moderate with sedation length of 10 minutes. PROCEDURE DESCRIPTION: After obtaining an informed consent, explaining the procedure, benefits, risks, complications and alternatives, the patient was brought to the transesophageal echocardiogram suite. A pulse oximetry and heart rate monitors were attached to the patient prior to the procedure. The patient's throat was sprayed using lidocaine locally. Following that, the patient was turned into left lateral position. A bite guard was placed and the patient was then sedated with the above doses of Versed and fentanyl in divided doses. Following that, the transesophageal echocardiogram probe was advanced through the bite guard into the mid esophagus where 2-D echocardiogram images as well as color Doppler images of various cardiac structures were obtained. We evaluated the interatrial septum using 2-D echocardiogram, color Doppler, and contrast study. The procedure was completed. There were no complications. FINDINGS: The left ventricular dimension and systolic function appeared to be within normal limits. The right ventricle appeared to be of normal size and function. The left atrium appeared to be within normal limits for dimension. The aortic valve appeared to be trileaflet valve without stenosis or regurgitation. The mitral valve seems to be mildly thickened without any evidence of vegetation seen. There was mild MR only. Normal tricuspid valve and pulmonic valve. The interatrial septum appeared to be intact. CONCLUSION: 1. Normal left ventricular dimension and systolic function. 2. Normal cardiac chamber sizes. 3. Intact interatrial septum without any evidence of shunt. 4. Normal mitral valve leaflets without any evidence of vegetation. 5. Trileaflet aortic valve without stenosis or regurgitation. 6. Normal tricuspid valve and pulmonic valve. 7. Normal aortic root dimension. 8. No evidence of pericardial effusion. MMODL / IJN: [id number] /
[2018-08-25 12:25] LABS: Glucose,Whole Blood 112 mg/dL (75-99)
[2018-08-25] MEDS: CHOLECALCIFEROL 1,000 UNIT TAB PO SCH (12:30)
[2018-08-25] MEDS: ACETAMINOPHEN TAB 500 MG TAB PO PRN (12:30)
[2018-08-25] MEDS: CALCIUM CARBONATE 500 MG CHEWABLE PO SCH (12:30)
[2018-08-25] MEDS: PANTOPRAZOLE 40 MG TABLET PO SCH (12:30)
[2018-08-25] MEDS: LORazepam 1 MG TAB PO PRN (12:30)
[2018-08-25] MEDS: ASPIRIN 81 MG PO SCH (12:30)
[2018-08-25] MEDS: MULTIVITAMINS, THERA 1 EACH TAB PO SCH (12:31)
[2018-08-25] MEDS: METOPROLOL SUCCINATE (ER) 50 MG TAB.ER.24H PO SCH (12:31)
[2018-08-25] MEDS: amLODIPine 10 MG TAB PO SCH (12:31)
[2018-08-25] MEDS: THIAMINE 100 MG TAB PO SCH ×2 (12:32→16:43)
[2018-08-25 16:43] VITALS: BP 160/95; PULSE 95; TEMP 97.9
[2018-08-25] MEDS: LISINOPRIL 20 MG TAB PO SCH (16:43)
--- NOTE | 2018-08-25 20:30 | P.PN ---
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 Patient says that her was placed in a long-term last week and since then patient has been drinking heavily for the past 1 week. She states that this afternoon she was on the phone with her daughter who lives across the state , her daughter became concerned that she may be intoxicated and taking her pain pills so she called EMS. EMS reports that they were contacted 3 times throughout the day today. The first 2 times the patient did admit to be intoxicated but was in her home and appeared safe he did not transport to the hospital however given the third: The concern for coingestions with narcotics decision was made for the patient's safety debris in the hospital for evaluation. Patient calm and cooperative she has no complaints she denies any suicidal ideation. 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 sodium 129 UDS positive for benzodiazepines EKG showed sinus tachycardia AST 60 Serum alcohol 164 on admission. Currently patient is awake and oriented. 08/20/2018 Patient denied any complaints of chest pain or shortness of breath. Otherwise patient feels very depressed. Sodium level improved to 133 today. Psychiatric recommendations are pending at this time. Tolerating oral diet and no complains of nausea vomiting or abdominal pain. No diarrhea. 08/21/2018 Patient denied any new complaints today. No nausea vomiting or abdominal pain. No headache or dizziness like tightness. Sodium level improved. Patient was seen by psychiatric and recommended inpatient psychiatric admission. Patient is agreeable. Anticipate discharged to psych unit once bed is available. Patient is medically stable to be transferred. Evaluated by psychiatry regarding depression, with patient to be discharged to mental health unit. 08/23/18 This morning developed panic attack, chest pain upon being awoken at 4: 30 AM. Troponins negative, EKG sinus tachycardia; evaluated by cardiology, no interventions recommended . Echo reporting normal LV function, EF 55-60% suggestive of possible vegetation , scheduled for BAO in a.m. Denies chest pain , palpitations or increased shortness of breath. Objective - Vital Signs Vital signs: Vital Signs Temp 98.0 F 08/23/18 20:22 Pulse 91 08/23/18 20:22 Resp 18 08/23/18 20:22 BP 144/92 08/23/18 20:22 Pulse Ox 97 08/23/18 20:22 Intake & Output 08/23/18 08/23/18 08/24/18 06:59 18:59 06:59 Intake Total 1820 600 540 Balance 1820 600 540 Intake: Intake, IV Titration 900 600 Amount Sodium Chloride 0.9% 1, 900 600 000 ml @ 75 mls/hr IV . [id number] SARITHA Rx#:[id number] Oral 920 540 Other: Voiding Method Toilet Toilet # Voids 2 1 3 # Bowel Movements 1 - Exam - Exam PHYSICAL EXAMINATION: Patient is sitting up in chair comfortably, no acute distress, awake alert and oriented.. HEENT: Normocephalic. Neck is supple. Pupils reactive. Nostrils clear. Oral cavity is moist. Neck reveals no JVD, carotid bruits, or thyromegaly. CHEST EXAMINATION: Trachea is central. Symmetrical expansion. Lung [place] clear. CARDIAC: Normal S1, S2 with no gallops. No murmurs ABDOMEN: Soft. Bowel sounds normal. No organomegaly. No abdominal bruits. Extremities: reveal no edema. No clubbing or cyanosis Neurologically awake, alert, oriented x3 with well-coordinated movements. No focal deficits noted - Labs CBC & Chem 7: 08/20/18 07:40 08/21/18 11:35 Labs: Abnormal Lab Results - Last 24 Hours (Table) 08/23/18 08/23/18 08/23/18 Range/Units 06:57 10:59 13:18 POC Glucose (mg/dL) 128 H 117 H (75-99) mg/dL Triglycerides 190 H (<150) mg/dL HDL Cholesterol 93 H (40-60) mg/dL 08/23/18 08/23/18 Range/Units 17:01 20:09 POC Glucose (mg/dL) 109 H 173 H (75-99) mg/dL Triglycerides (<150) mg/dL HDL Cholesterol (40-60) mg/dL Assessment and Plan Assessment: Acute alcohol intoxication with alcohol level 164 on admission, improved Severe alcohol abuse Hyponatremia likely hypovolemic. resolved Depression/adjustment disorder Hypertension Diet controlled diabetes type 2 Hypothyroidism GERD Hyperlipidemia Osteoarthritis Previous history of smoking Plan: Continue on current medication regime ,monitoring and symptomatic treatment.NPO at midnight for BAO tomorrow. Continue on aspirin, DONNA inhibitor , beta gail and Norvasc. Post BAO, patient to be discharged to mental health unit. The impression and plan of care has been dictated as directed. : I performed a history and examination of this patient, discussed the same with the dictator. I agree with the dictator's note ,documented as a scribe. Any additional findings or plans will be noted.
--- NOTE | 2018-08-25 20:33 | P.PN ---
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 Patient says that her was placed in a prison last week and since then patient has been drinking heavily for the past 1 week. She states that this afternoon she was on the phone with her daughter who lives across the state , her daughter became concerned that she may be intoxicated and taking her pain pills so she called EMS. EMS reports that they were contacted 3 times throughout the day today. The first 2 times the patient did admit to be intoxicated but was in her home and appeared safe he did not transport to the hospital however given the third: The concern for coingestions with narcotics decision was made for the patient's safety debris in the hospital for evaluation. Patient calm and cooperative she has no complaints she denies any suicidal ideation. 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 sodium 129 UDS positive for benzodiazepines EKG showed sinus tachycardia AST 60 Serum alcohol 164 on admission. Currently patient is awake and oriented. 08/20/2018 Patient denied any complaints of chest pain or shortness of breath. Otherwise patient feels very depressed. Sodium level improved to 133 today. Psychiatric recommendations are pending at this time. Tolerating oral diet and no complains of nausea vomiting or abdominal pain. No diarrhea. 08/21/2018 Patient denied any new complaints today. No nausea vomiting or abdominal pain. No headache or dizziness like tightness. Sodium level improved. Patient was seen by psychiatric and recommended inpatient psychiatric admission. Patient is agreeable. Anticipate discharged to psych unit once bed is available. Patient is medically stable to be transferred. Evaluated by psychiatry regarding depression, with patient to be discharged to mental health unit. 08/23/18 This morning developed panic attack, chest pain upon being awoken at 4: 30 AM. Troponins negative, EKG sinus tachycardia; evaluated by cardiology, no interventions recommended . Echo reporting normal LV function, EF 55-60% suggestive of possible vegetation , scheduled for BAO in a.m. Denies chest pain , palpitations or increased shortness of breath. 08/24/2018 no overnight events. BAO pending. Denies chest pain, palpitations or increasing shortness of breath. Denies lightheadedness dizziness or focal deficits. Objective - Vital Signs Vital signs: Vital Signs Temp 98.0 F 08/24/18 20:11 Pulse 92 08/24/18 20:11 Resp 18 08/24/18 20:11 BP 126/74 08/24/18 20:11 Pulse Ox 99 08/24/18 20:11 Intake & Output 08/24/18 08/24/18 08/25/18 06:59 18:59 06:59 Intake Total 1080 1240 Balance 1080 1240 Intake: Intake, IV Titration 640 Amount Sodium Chloride 0.9% 1, 640 000 ml @ 75 mls/hr IV . [id number] SARITHA Rx#:[id number] Oral 1080 600 Other: Voiding Method Toilet Toilet # Voids 1 1 - Exam - Exam PHYSICAL EXAMINATION: Patient is sitting up in bed no acute distress, awake alert and oriented.. HEENT: Normocephalic. Neck is supple. Pupils reactive. Nostrils clear. Oral cavity is moist. Neck reveals no JVD, carotid bruits, or thyromegaly. CHEST EXAMINATION: Trachea is central. Symmetrical expansion. Lung [place] clear. CARDIAC: Normal S1, S2 with no gallops. No murmurs ABDOMEN: Soft. Bowel sounds normal. No organomegaly. No abdominal bruits. Extremities: reveal no edema. No clubbing or cyanosis Neurologically awake, alert, oriented x3 with well-coordinated movements. No focal deficits noted - Labs CBC & Chem 7: 08/20/18 07:40 08/21/18 11:35 Labs: Abnormal Lab Results - Last 24 Hours (Table) 08/24/18 08/24/18 08/24/18 Range/Units 06:58 10:55 17:06 POC Glucose (mg/dL) 132 H 131 H 167 H (75-99) mg/dL 08/24/18 Range/Units 20:00 POC Glucose (mg/dL) 134 H (75-99) mg/dL Assessment and Plan Assessment: Acute alcohol intoxication with alcohol level 164 on admission, improved Severe alcohol abuse Hyponatremia likely hypovolemic. resolved Depression/adjustment disorder Hypertension Diet controlled diabetes type 2 Hypothyroidism GERD Hyperlipidemia Osteoarthritis Previous history of smoking Plan: Continue on current medication regime ,monitoring and symptomatic treatment.NPO at midnight for BAO tomorrow. Follow closely with cardiology. Discharge planning in progress for mental health unit pending BAO results. The impression and plan of care has been dictated as directed. : I performed a history and examination of this patient, discussed the same with the dictator. I agree with the dictator's note ,documented as a scribe. Any additional findings or plans will be noted.
== END 2018-08-25 16:55 | DRG 641 ==
LOC: EC 23:44 → 3NMEDONC 08-19 01:50 → OBSVTOIN 08-19 14:35 → 3NMEDONC 08-19 19:50
PROVIDERS: ADMIT Hospitalist; ATTEND Hospitalist
PROC: HZ2ZZZZ Detoxification Services for Substance Abuse Treatment (ICD-10-PCS; principal; 2018-08-19)
DX: E87.1 Hypo-osmolality and hyponatremia (principal); F10.239 Alcohol dependence with withdrawal, unspecified; F10.229 Alcohol dependence with intoxication, unspecified; M19.90 Unspecified osteoarthritis, unspecified site; K21.9 Gastro-esophageal reflux disease without esophagitis; I10 Essential (primary) hypertension; E78.5 Hyperlipidemia, unspecified; E11.9 Type 2 diabetes mellitus without complications; F32.9 Major depressive disorder, single episode, unspecified; E86.1 Hypovolemia; E66.9 Obesity, unspecified; Z68.33 Body mass index [BMI] 33.0-33.9, adult; R00.0 Tachycardia, unspecified; E03.9 Hypothyroidism, unspecified; F41.0 Panic disorder [episodic paroxysmal anxiety]; R07.89 Other chest pain; F43.20 Adjustment disorder, unspecified; Y90.6 Blood alcohol level of 120-199 mg/100 ml; Z79.890 Hormone replacement therapy; Z79.899 Other long term (current) drug therapy; Z79.82 Long term (current) use of aspirin; Z87.891 Personal history of nicotine dependence; Z86.14 Personal history of Methicillin resistant Staphylococcus aureus infection; Z90.49 Acquired absence of other specified parts of digestive tract; Z96.652 Presence of left artificial knee joint; Z96.641 Presence of right artificial hip joint; Z85.828 Personal history of other malignant neoplasm of skin; Z98.84 Bariatric surgery status; Z88.2 Allergy status to sulfonamides; Z83.3 Family history of diabetes mellitus; Z82.49 Family history of ischemic heart disease and other diseases of the circulatory system
CPT/HCPCS: 36415; 80053; 80061; 80306; 80320; 81003; 82075; 83036; 83520; 83735; 84484; 85025; 87040; 93005; 93306; 93312; 93320; 93325; 96360; 96361; 99285

== ENCOUNTER 2018-08-23 09:35 | Inpatient (IN) | payer MEDICARE, OTHER ==
[2018-08-25] MEDS ORDERED: MAGNESIUM HYDROXIDE 2,400 MG/10 ML CUP PO PRN (18:11)
[2018-08-25] MEDS ORDERED: LORazepam 1 MG TAB PO PRN (18:11)
[2018-08-25] MEDS ORDERED: LORazepam 2 MG/ML INJ IM PRN (18:24)
[2018-08-25 19:21] VITALS: BMI 29.7
[2018-08-25] MEDS: MELATONIN 5 MG TABLET PO SCH (21:18)
[2018-08-25] MEDS: CALCIUM CARBONATE 500 MG CHEWABLE PO SCH (21:18)
[2018-08-25] MEDS: ACETAMINOPHEN TAB 500 MG TAB PO PRN (21:18)
[2018-08-26 06:19] LABS: Glucose,Whole Blood 134 mg/dL (75-99)
[2018-08-26] MEDS: LEVOTHYROXINE 112 MCG TAB PO SCH (06:36)
[2018-08-26] MEDS: CALCIUM CARBONATE 500 MG CHEWABLE PO SCH ×2 (09:09→21:21)
[2018-08-26] MEDS: PANTOPRAZOLE 40 MG TABLET PO SCH (09:09)
[2018-08-26] MEDS: CHOLECALCIFEROL 1,000 UNIT TAB PO SCH (09:09)
[2018-08-26] MEDS: METOPROLOL SUCCINATE (ER) 50 MG TAB.ER.24H PO SCH (09:09)
[2018-08-26] MEDS: amLODIPine 10 MG TAB PO SCH (09:09)
[2018-08-26] MEDS: ASPIRIN 81 MG PO SCH (09:09)
--- NOTE | 2018-08-26 11:22 | P.HP ---
Psychiatric H&P - . H&P Date: 08/26/18 History & Physical: Allergies Allergy/AdvReac Type Severity Reaction Status Date / Time Sulfa (Sulfonamide Allergy Unknown Rash/Hives Verified 08/26/18 07:21 Antibiotics) Vital Signs Temp Pulse 92 08/26/18 09:19 Resp 18 08/26/18 09:19 BP 159/89 08/26/18 09:19 Pulse Ox Intake & Output 08/25/18 08/26/18 08/26/18 18:59 06:59 18:59 Weight 83.7 kg Laboratory Last Values POC Glucose (mg/dL) 134 mg/dL (75-99) H 08/26/18 06:11 POC Glu Patient Assessment Coordinator ID Meghan Lombardo 08/26/18 06:11 TSH 2.940 mIU/L (0.465-4.680) 08/23/18 13:17 Assessment and Plan Assessment: This a pleasant 68-year-old female who is brought to the ED today via EMS for evaluation of intoxication. Luh admits that since her was placed in a long term last week she has been drinking heavily, she states that she's been drinking a bottle of wine every day. She states that this afternoon she was on the phone with her daughter who lives across the state, her daughter became concerned that she may be intoxicated and taking her pain pills so she called EMS. EMS reports that they were contacted 3 times throughout the day today. The first 2 times the patient did admit to be intoxicated but was in her home and appeared safe he did not transport to the hospital however given the third: The concern for coingestions with narcotics decision was made for the patient's safety debris in the hospital for evaluation. Patient calm and cooperative she has no complaints she denies any suicidal ideation. - Related Data Home Medications Medication Instructions Recorded Confirmed Levothyroxine Sodium [Synthroid] 112 mcg PO QAM 08/20/14 03/29/18 Lisinopril [Zestril] 10 mg PO DAILY@169908/20/14 03/29/18 Multivitamins, Thera [Multivitamin 1 tab PO DAILY 08/20/14 03/29/18 (formulary)] amLODIPine [Norvasc] 10 mg PO DAILY@169908/20/14 03/29/18 Atorvastatin [Lipitor] 10 mg PO QAM 11/18/17 03/29/18 Cholecalciferol [Vitamin D3] 1,000 unit PO DAILY 11/18/17 03/29/18 Garlic 1 tab PO DAILY 11/18/17 03/29/18 Metoprolol Succinate (ER) [Toprol 50 mg PO QAM 11/18/17 03/29/18 XL] Calcium Carbonate [Calcium] 600 mg PO BID 11/23/17 03/29/18 Aspirin [Adult Low Dose Aspirin EC] 81 mg PO DAILY 02/16/18 03/29/18 Hydrocodone/Acetaminophen [[place] 1 tab PO Q8H PRN 02/16/18 03/29/18 7.5-325] Previous Rx's Medication Instructions Recorded Aspirin 325 mg PO BID #60 tab 03/30/18 HYDROcodone/APAP 7.5-325MG [[place] 1 - 2 tab PO Q4-6H PRN #84 tab 03/30/18 7.5-325] Sennosides [Senokot] 1 tab PO BID #60 tablet 03/30/18 Allergies Allergy/AdvReac Type Severity Reaction Status Date / Time Sulfa (Sulfonamide Allergy Unknown Rash/Hives Verified 03/29/18 16:06 Antibiotics) Past Medical History Past Medical History: Cancer, Diabetes Mellitus, GERD/Reflux, Hyperlipidemia, Hypertension, Osteoarthritis (OA), Thyroid Disorder Additional Past Medical History / Comment(s): DIET CONTROLLED-DIABETIC , SQUAMOUS CELL -RIGHT LEG History of Any Multi-Drug Resistant Organisms: MRSA Date of last positivie culture/infection: november 2017 MDRO Source:: nose Past Surgical History: Bariatric Surgery, Section, Cholecystectomy, Joint Replacement Additional Past Surgical History / Comment(s): X2, ANNELIESE LEG NERVE SURGERY, GASTRIC [id number]. TOTAL LEFT KNEE Past Anesthesia/Blood Transfusion Reactions: Motion Sickness Additional Past Anesthesia/Blood Transfusion Reaction / Comment(s): HX OF BLOOD TRANSFUSIONS=NO REACTION Past Psychological History: Depression Smoking Status: Former smoker Past Alcohol Use History: Daily Past Drug Use History: None Reported - Past Family History Mother Family Medical History: No Reported History Father Family Medical History: Diabetes Mellitus, Hypertension Mental Status Examination - this is a 68-year-old female who is had numerous stress upon herself including her who suffering from gun gunshot wound 12 years ago and she had to place him and a long term within the last 2 weeks. She also had been using her daughter's neck rolls her Jakob for herself and she ran out of medication and turn to alcohol because she was overwhelmed and depressed hopeless helpless. Her is a treating plant pumper and she does not believe in suicide but she states she monitors well be . General Appearance: [ casual, appears older than stated age Speech/Language: [spontaneous Attitude/Behavior: [cooperative Mood: [depressed 9 out of 10, anxious 9 out of 10,fearful, hopelessness Affect: [ flat, incongruent, labile, blunted constricted and tearful] Orientation: [time, person, place situation] Thought Content: [wnl, denies delusions, obsessions, phobias, other] Risk Factors: [Denies suicidal (ideations, plan), and/or Homicidal (ideations, plan), other] Perception: [wnl, denies hallucinations (auditory, visual, tactile), other] Thought Processes: [ concrete, circumstantial, tangential] Concentration/Attention Span: [ impaired] [Per observation and interview with the patient] Recent Memory: [wnl Remote Memory: [wnl] [past events, as related history] Intelligence: [ above average] [based on history, based on vocabulary, syntax, grammar, and content] Judgement: [ poor] [per patient's behavior/history of present illness] Insight: [good] [understanding severity of illness/history of present illness] Psychiatric impression: Major depressive disorder severe in nature; restless leg syndrome Patient Strengths - Personal Skills: [x] Achievements: [x] Steady employment/financial stability: [x] Housing stability: [x] Able to vocalize needs: [x] Values and traditions: [x] Motivation, determination, readiness for change: [x] Setting and pursuing goals, hopes, dreams, aspirations: [] Patient Limitations: [ lack of social supports] Initial Plan of Care: [She was admitted on a formal voluntary to [address] [place] [address] unit for depression and recovering early remission of alcohol binge. She 'll be placed on 15 minute checks for safety and usual protocol. Unit. She will be evaluated by medicine, psychiatry, nursing staff, social work and occupational therapy. Should be expected to participate in [facility] therapeutic environment including group activities therapy and medication adherence. Discussed in detail the effects of alcohol and depression on her body and will start with Zoloft 25 mg by mouth daily at bedtime for depression and anxiety and Mirapex for restless leg at 0.5 mg by mouth daily at bedtime] Estimated Length of Stay: [5 days] Initial Discharge Plan: [home, referred to therapist Prognosis: [good Justification for Inpatient Hospitalization - anxiety, depression resulting in significant loss of functioning.] [Dangerous to self with need for controlled environment.] [Emotional or behavioral conditions and complications requiring 24 hour medical and nursing care.] [Need for special drug therapy, or other therapeutic program requiring continuous hospitalization.] [Failure of social or occupational functioning.] [Inability to meet basic life and health needs.] (1) Major depressive disorder Current Visit: No Status: Acute Priority: High Code(s): F32.9 - MAJOR DEPRESSIVE DISORDER, SINGLE EPISODE, UNSPECIFIED SNOMED Code(s): 121023117 Time with Patient: Less than 30
[2018-08-26] MEDS: THIAMINE 100 MG TAB PO SCH ×2 (12:31→16:12)
[2018-08-26] MEDS: MULTIVITAMINS, THERA 1 EACH TAB PO SCH (12:31)
[2018-08-26] MEDS: MAG HYDROX/AL HYDROX/SIMETH 30 ML CUP PO PRN (13:38)
[2018-08-26] MEDS: ACETAMINOPHEN TAB 500 MG TAB PO PRN (16:12)
[2018-08-26] MEDS: LISINOPRIL 20 MG TAB PO SCH (16:12)
--- NOTE | 2018-08-26 18:05 | P.CONS ---
History of Present Illness - Reason for Consult Medical clearance - History of Present Illness 62-year-old admitted to psychiatric floor. Patient was admitted to my service for alcohol intoxication was treated for hypovolemic hyponatremia alcohol withdrawal subsequently transferred to psychiatric floor. Patient denied any symptoms at this time but tearful quite a bit depressed. Review of Systems REVIEW OF SYSTEMS: CONSTITUTIONAL: No fever, no malaise, no fatigue. HEENT: No recent visual problems or hearing problems. Denied any sore throat. CARDIOVASCULAR: No chest pain, orthopnea, PND, no palpitations, no syncope. PULMONARY: No shortness of breath, no cough, no hemoptysis. GASTROINTESTINAL: No diarrhea, no nausea, no vomiting, no abdominal pain. NEUROLOGICAL: No headaches, no weakness, no numbness. HEMATOLOGICAL: Denies any bleeding or petechiae. GENITOURINARY: Denies any burning micturition, frequency, or urgency. MUSCULOSKELETAL/RHEUMATOLOGICAL: Denies any joint pain, swelling, or any muscle pain. ENDOCRINE: Denies any polyuria or polydipsia. The rest of the 14-point review of systems is negative. Past Medical History Past Medical History: Cancer, Chest Pain / Angina, Diabetes Mellitus, GERD/ Reflux, Hyperlipidemia, Hypertension, Osteoarthritis (OA), Thyroid Disorder Additional Past Medical History / Comment(s): DIET CONTROLLED-DIABETIC , SQUAMOUS CELL -RIGHT LEG, L knee replacement, R hip replacement, MRSA nose last November 2017, Bariatric surgery ROU-[id number], Hypothyroidism History of Any Multi-Drug Resistant Organisms: MRSA Year Discovered:: november 2017 MDRO Source:: nose Past Surgical History: Bariatric Surgery, Section, Cholecystectomy, Joint Replacement Additional Past Surgical History / Comment(s): X2, ANNELIESE LEG NERVE SURGERY, GASTRIC [id number]. TOTAL LEFT KNEE, total right hip Past Anesthesia/Blood Transfusion Reactions: Motion Sickness Additional Past Anesthesia/Blood Transfusion Reaction / Comm: HX OF BLOOD TRANSFUSIONS=NO REACTION Past Psychological History: Anxiety, Depression Additional Psychological History / Comment(s): SEASONAL AFFECTIVE DISORDER-pt states this was not a problem this past winter. Pt resides with her spouse for whom she is caregiver. 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 Pt uses no assistive devices. She drives. Smoking Status: Former smoker Past Alcohol Use History: Daily, Heavy Additional Past Alcohol Use History / Comment(s): Pt started smoking in 1967 and quit May of 1989. SMOKED ON AND OFF - SMOKED 1PPD Past Drug Use History: None Reported - Past Family History Mother Family Medical History: No Reported History Father Family Medical History: Diabetes Mellitus, Hypertension Medications and Allergies Home Medications Medication Instructions Recorded Confirmed Type Levothyroxine Sodium [Synthroid] 112 mcg PO QAM 08/20/14 08/26/18 History Multivitamins, Thera [Multivitamin 1 tab PO DAILY 08/20/14 08/26/18 History (formulary)] amLODIPine [Norvasc] 10 mg PO DAILY 08/20/14 08/26/18 History Cholecalciferol [Vitamin D3] 1,000 unit PO DAILY 11/18/17 08/26/18 History Garlic 1 tab PO DAILY 11/18/17 08/26/18 History Metoprolol Succinate (ER) [Toprol 50 mg PO QAM 11/18/17 08/26/18 History XL] Calcium Carbonate [Calcium] 600 mg PO BID 11/23/17 08/26/18 History Aspirin [Adult Low Dose Aspirin EC] 81 mg PO DAILY 02/16/18 08/26/18 History Acetaminophen Tab [Tylenol] 500 mg PO Q6HR PRN tab 08/22/18 08/26/18 Rx Melatonin 5 mg PO HS tablet 08/22/18 08/26/18 Rx Multivitamins, Thera [Multivitamin 1 each PO DAILY@1200 tab 08/22/18 08/26/18 Rx (formulary)] Pantoprazole [Protonix] 40 mg PO AC-BRKFST tablet. 08/22/18 08/26/18 Rx Lisinopril [Zestril] 20 mg PO DAILY@1700 tab 08/23/18 08/26/18 Rx LORazepam [Ativan] 1 mg PO Q6HR PRN tab 08/25/18 08/26/18 Rx Thiamine [Vitamin B-1] 100 mg PO DAILY #30 tablet 08/25/18 08/26/18 Rx Allergies Allergy/AdvReac Type Severity Reaction Status Date / Time Sulfa (Sulfonamide Allergy Unknown Rash/Hives Verified 08/26/18 07:21 Antibiotics) Physical Exam Vitals: Vital Signs Pulse Resp BP 08/26/18 09:19 92 18 159/89 08/26/18 09:11 92 18 159/89 Intake and Output 08/26/18 08/26/18 08/26/18 06:59 14:59 22:59 Other: Weight 83.7 kg PHYSICAL EXAMINATION: GENERAL: The patient is alert and oriented x3, not in any acute distress. Well developed, well nourished. HEENT: Pupils are round and equally reacting to light. EOMI. No scleral icterus. No conjunctival pallor. Normocephalic, atraumatic. No pharyngeal erythema. No thyromegaly. CARDIOVASCULAR: S1 and S2 present. No murmurs, rubs, or gallops. PULMONARY: Chest is clear to auscultation, no wheezing or crackles. ABDOMEN: Soft, nontender, nondistended, normoactive bowel sounds. No palpable organomegaly. MUSCULOSKELETAL: No joint swelling or deformity. EXTREMITIES: No cyanosis, clubbing, or pedal edema. NEUROLOGICAL: Gross neurological examination did not reveal any focal deficits. SKIN: No rashes. Results Labs: Abnormal Lab Results - Last 24 Hours (Table) 08/26/18 Range/Units 06:11 POC Glucose (mg/dL) 134 H (75-99) mg/dL Assessment and Plan Plan: -Major depression: Management as per primary service -Type 2 diabetes mellitus -hyperlipidemia - hypertension -hypothyroidism Alcohol abuse history Plan I did review the medication reconciliation patient will be started and continued on appropriate medications from. Her discharge no further recommendations from medicine please call us back if needed.
[2018-08-26] MEDS: SERTRALINE 25 MG TAB PO SCH (21:21)
[2018-08-26] MEDS: PRAMIPEXOLE 0.5 MG TAB PO SCH (21:21)
[2018-08-26] MEDS: MELATONIN 5 MG TABLET PO SCH (21:21)
[2018-08-27] MEDS: LEVOTHYROXINE 112 MCG TAB PO SCH (06:08)
[2018-08-27] MEDS: ACETAMINOPHEN TAB 500 MG TAB PO PRN ×3 (06:36→16:37)
[2018-08-27 06:46] LABS: Glucose,Whole Blood 122 mg/dL (75-99)
--- NOTE | 2018-08-27 08:42 | P.PN ---
Progress Note - Text Interval history: The patient is found in the hallway she follows me to an interview room. She was admitted from the medical floor after a lengthy admission. She originally presented after she had been consuming alcohol with use of [facility]. She states she's been using [facility] for approximately 8 years. She has felt overwhelmed with changes in her life recently. Her is now residing and extended care facility and he has had numerous medical illnesses over the years. She states over the years she's had to put her daughter with special needs in an adult foster half-way. She states she plans on attending a recovery type home in [place] for 3 months. She was started on Zoloft Mirapex and melatonin here on the mental health unit. She had questions regarding those medications. She indicates that she is eating she states sleep was impaired staff report she slept 6 hours. She has been making an effort to attend groups. Mental status exam: The patient is an alert female appearing her stated age. She is ambulating with a walker. She is mildly disheveled hygiene is adequate. She is pleasant and cooperative. She soft-spoken. She endorses a depressed and anxious mood affect is tearful at times. She is reporting no acute suicidal or homicidal ideation intent or plan. She demonstrates no tangential thinking loose associations or flight of ideas. She does not appear hypomanic or manic. She is reporting no auditory or visual hallucinations or any specific delusions. There is no observed evidence of psychosis. She demonstrates no verbal or physical aggressiveness. She is oriented to person place and date. Plan: The patient will continue on her current medications. She has just been started on Zoloft this will be titrated during the course of her hospitalization. She is encouraged to continue participating in the milieu. We 'll monitor her for safety. Vital signs reviewed.
[2018-08-27] MEDS: PANTOPRAZOLE 40 MG TABLET PO SCH (08:57)
[2018-08-27] MEDS: amLODIPine 10 MG TAB PO SCH (08:57)
[2018-08-27] MEDS: ASPIRIN 81 MG PO SCH (08:57)
[2018-08-27] MEDS: CALCIUM CARBONATE 500 MG CHEWABLE PO SCH ×2 (08:58→20:49)
[2018-08-27] MEDS: METOPROLOL SUCCINATE (ER) 50 MG TAB.ER.24H PO SCH (08:58)
[2018-08-27] MEDS: CHOLECALCIFEROL 1,000 UNIT TAB PO SCH (08:59)
[2018-08-27] MEDS: MAG HYDROX/AL HYDROX/SIMETH 30 ML CUP PO PRN (08:59)
[2018-08-27] MEDS: THIAMINE 100 MG TAB PO SCH ×2 (13:00→16:06)
[2018-08-27] MEDS: MULTIVITAMINS, THERA 1 EACH TAB PO SCH (13:01)
[2018-08-27] MEDS: LISINOPRIL 20 MG TAB PO SCH (16:06)
[2018-08-27] MEDS: SERTRALINE 25 MG TAB PO SCH (20:49)
[2018-08-27] MEDS: MELATONIN 5 MG TABLET PO SCH (20:49)
[2018-08-27] MEDS: PRAMIPEXOLE 0.5 MG TAB PO SCH (20:49)
[2018-08-28] MEDS: ACETAMINOPHEN TAB 500 MG TAB PO PRN ×2 (02:38→08:47)
[2018-08-28] MEDS: LEVOTHYROXINE 112 MCG TAB PO SCH (06:08)
[2018-08-28 06:21] LABS: Glucose,Whole Blood 127 mg/dL (75-99)
[2018-08-28] MEDS: ASPIRIN 81 MG PO SCH (08:44)
[2018-08-28] MEDS: PANTOPRAZOLE 40 MG TABLET PO SCH (08:45)
[2018-08-28] MEDS: amLODIPine 10 MG TAB PO SCH (08:45)
[2018-08-28] MEDS: CALCIUM CARBONATE 500 MG CHEWABLE PO SCH ×2 (08:45→20:52)
[2018-08-28] MEDS: METOPROLOL SUCCINATE (ER) 50 MG TAB.ER.24H PO SCH (08:45)
[2018-08-28] MEDS: CHOLECALCIFEROL 1,000 UNIT TAB PO SCH (10:38)
[2018-08-28] MEDS: THIAMINE 100 MG TAB PO SCH ×2 (12:12→16:27)
[2018-08-28] MEDS: MULTIVITAMINS, THERA 1 EACH TAB PO SCH (12:12)
--- NOTE | 2018-08-28 15:00 | P.PN ---
Progress Note - Text Interval history: The patient's is found in the hallway she follows me to an interview room. She reports her mood is better than yesterday. Her did visit and reassured her that he was where he needs to be and that alleviated some of her guilt. She has no questions or concerns regarding medication. We decided to titrate the Zoloft further and she is agreeable. She has been attending groups. Mental status exam: The patient is alert she is dressed in her own clothing hygiene grooming are good. She has a smiling affect and indicates her mood is better today. She is reporting no acute suicidal or homicidal ideation intent or plan. She is reporting no auditory or visual hallucinations or any specific delusions. Thought process is linear she demonstrates no tangential thinking loose associations or flight of ideas. She demonstrates no verbal or physical aggressiveness. She is ambulating with use of a wheeled walker. She is observed socializing with peers throughout the day. Insight and judgment improving. Plan: The patient will continue on her current psychotropic medication. I will increase the Zoloft to 50 mg at bedtime. She is asking for Claritin as she has taken that as an outpatient for sinus issues. We will monitor her for safety and encourage full participation in the milieu. It appears that she starting the clinically stabilize.
[2018-08-28] MEDS: LORATADINE 10 MG TAB PO SCH (15:26)
[2018-08-28] MEDS: LISINOPRIL 20 MG TAB PO SCH (16:27)
[2018-08-28] MEDS: PRAMIPEXOLE 0.5 MG TAB PO SCH (20:52)
[2018-08-28] MEDS: SODIUM CHLORIDE 0.65% NASAL SPRAY 44 ML BTL NASAL PRN (20:53)
[2018-08-28] MEDS ORDERED: SERTRALINE 50 MG TAB PO SCH (21:00)
[2018-08-29] MEDS: LEVOTHYROXINE 112 MCG TAB PO SCH (06:10)
[2018-08-29 06:15] LABS: Glucose,Whole Blood 133 mg/dL (75-99)
[2018-08-29] MEDS: amLODIPine 10 MG TAB PO SCH (08:08)
[2018-08-29] MEDS: LORATADINE 10 MG TAB PO SCH (08:08)
[2018-08-29] MEDS: CALCIUM CARBONATE 500 MG CHEWABLE PO SCH ×2 (08:08→20:53)
[2018-08-29] MEDS: METOPROLOL SUCCINATE (ER) 50 MG TAB.ER.24H PO SCH (08:08)
[2018-08-29] MEDS: PANTOPRAZOLE 40 MG TABLET PO SCH (08:09)
[2018-08-29] MEDS: ASPIRIN 81 MG PO SCH (08:09)
[2018-08-29] MEDS: CHOLECALCIFEROL 1,000 UNIT TAB PO SCH (08:09)
[2018-08-29] MEDS: SODIUM CHLORIDE 0.65% NASAL SPRAY 44 ML BTL NASAL PRN ×2 (08:46→22:18)
[2018-08-29] MEDS: MULTIVITAMINS, THERA 1 EACH TAB PO SCH (08:47)
[2018-08-29] MEDS: THIAMINE 100 MG TAB PO SCH ×2 (08:47→17:12)
--- NOTE | 2018-08-29 12:35 | P.PN ---
Subjective Progress Note Date: 08/29/18 Principal diagnosis: major depression I am going to [facility] rehab in [place] where she will be near daughter. I am less depressed and not suicidal/homicidal. She is walking without walker. Her came to visit on Wednesday in wheel chair. Objective - Vital Signs Vital signs: Vital Signs Temp 98.4 F 08/29/18 03:16 Pulse 107 H 08/29/18 08:11 Resp 18 08/29/18 08:11 BP 147/92 08/29/18 08:11 Pulse Ox Intake & Output 08/28/18 08/29/18 08/29/18 18:59 06:59 18:59 Weight 83.4 kg - Labs Labs: Abnormal Lab Results - Last 24 Hours (Table) 08/29/18 Range/Units 06:13 POC Glucose (mg/dL) 133 H (75-99) mg/dL Assessment and Plan Assessment: This a pleasant 68-year-old female who is brought to the ED today via EMS for evaluation of intoxication. Luh admits that since her was placed in a snf last week she has been drinking heavily, she states that she's been drinking a bottle of wine every day. She states that this afternoon she was on the phone with her daughter who lives across the state, her daughter became concerned that she may be intoxicated and taking her pain pills so she called EMS. EMS reports that they were contacted 3 times throughout the day today. The first 2 times the patient did admit to be intoxicated but was in her home and appeared safe he did not transport to the hospital however given the third: The concern for coingestions with narcotics decision was made for the patient's safety debris in the hospital for evaluation. Patient calm and cooperative she has no complaints she denies any suicidal ideation. Mental Status Examination - this is a 68-year-old female who is had numerous stress upon herself including her who suffering from gun gunshot wound 12 years ago and she had to place him and a snf within the last 2 weeks. She also had been using her daughter's neck rolls her [place] for herself and she ran out of medication and turn to alcohol because she was overwhelmed and depressed hopeless helpless. Her is a co op and she does not believe in suicide but she states she monitors well be . General Appearance: [ casual, appears older than stated age Speech/Language: [spontaneous Attitude/Behavior: [cooperative Mood: [depressed 9 out of 10, anxious 9 out of 10,fearful, hopelessness Affect: [ flat, incongruent, labile, blunted constricted and tearful] Orientation: [time, person, place situation] Thought Content: [wnl, denies delusions, obsessions, phobias, other] Risk Factors: [Denies suicidal (ideations, plan), and/or Homicidal (ideations, plan), other] Perception: [wnl, denies hallucinations (auditory, visual, tactile), other] Thought Processes: [ concrete, circumstantial, tangential] Concentration/Attention Span: [ impaired] [Per observation and interview with the patient] Recent Memory: [wnl Remote Memory: [wnl] [past events, as related history] Intelligence: [ above average] [based on history, based on vocabulary, syntax, grammar, and content] Judgement: [ poor] [per patient's behavior/history of present illness] Insight: [good] [understanding severity of illness/history of present illness] Psychiatric impression: Major depressive disorder severe in nature; restless leg syndrome Patient Limitations: [ lack of social supports] Initial Plan of Care: [She was admitted on a formal voluntary to [address] [place] [address] for depression and recovering early remission of alcohol binge. She 'll be placed on 15 minute checks for safety and usual protocol. Unit. She will be evaluated by medicine, psychiatry, nursing staff, social work and occupational therapy. Should be expected to participate in [facility] milieu therapeutic environment including group activities therapy and medication adherence. Discussed in detail the effects of alcohol and depression on her body and will start with Zoloft 25 mg by mouth daily at bedtime for depression and anxiety and Mirapex for restless leg at 0.5 mg by mouth daily at bedtime] 08/29/2018: Increase MIRAPEX 1.0 MG PO qhs; Zoloft 75 mg po qhs; continue 15 checks for safety and usual protocol per unit. Estimated Length of Stay: [2 days] (1) Major depressive disorder Current Visit: No Status: Acute Priority: High Code(s): F32.9 - MAJOR DEPRESSIVE DISORDER, SINGLE EPISODE, UNSPECIFIED SNOMED Code(s): 178239003 Time with Patient: Less than 30
--- NOTE | 2018-08-29 13:01 | P.DS ---
Providers Date of admission: 08/25/18 16:52 Expected date of discharge: 08/30/18 Attending physician: Francois Heller DO Consults: 08/25/18 18:11 Consult Physician Routine Consulting Provider: Chandra Raphael Consult Reason/Comments: H & P Do you want consulting provider notified?: Already Contacted Primary care physician: Imelda Beckham - Discharge Diagnosis(es) (1) Major depressive disorder Assessment: This a pleasant 68-year-old female who is brought to the ED today via EMS for evaluation of intoxication. Luh admits that since her was placed in a fci last week she has been drinking heavily, she states that she's been drinking a bottle of wine every day. She states that this afternoon she was on the phone with her daughter who lives across the state, her daughter became concerned that she may be intoxicated and taking her pain pills so she called EMS. EMS reports that they were contacted 3 times throughout the day today. The first 2 times the patient did admit to be intoxicated but was in her home and appeared safe he did not transport to the hospital however given the third: The concern for coingestions with narcotics decision was made for the patient's safety debris in the hospital for evaluation. Patient calm and cooperative she has no complaints she denies any suicidal ideation. - Related Data Home Medications Medication Instructions Recorded Confirmed Levothyroxine Sodium [Synthroid] 112 mcg PO QAM 08/20/14 03/29/18 Lisinopril [Zestril] 10 mg PO DAILY@1700 08/20/14 03/29/18 Multivitamins, Thera [Multivitamin 1 tab PO DAILY 08/20/14 03/29/18 (formulary)] amLODIPine [Norvasc] 10 mg PO DAILY@1700 08/20/14 03/29/18 Atorvastatin [Lipitor] 10 mg PO QAM 11/18/17 03/29/18 Cholecalciferol [Vitamin D3] 1,000 unit PO DAILY 11/18/17 03/29/18 Garlic 1 tab PO DAILY 11/18/17 03/29/18 Metoprolol Succinate (ER) [Toprol 50 mg PO QAM 11/18/17 03/29/18 XL] Calcium Carbonate [Calcium] 600 mg PO BID 11/23/17 03/29/18 Aspirin [Adult Low Dose Aspirin EC] 81 mg PO DAILY 02/16/18 03/29/18 Hydrocodone/Acetaminophen [[place] 1 tab PO Q8H PRN 02/16/18 03/29/18 7.5-325] Previous Rx's Medication Instructions Recorded Aspirin 325 mg PO BID #60 tab 03/30/18 HYDROcodone/APAP 7.5-325MG [[place] 1 - 2 tab PO Q4-6H PRN #84 tab 03/30/18 7.5-325] Sennosides [Senokot] 1 tab PO BID #60 tablet 03/30/18 Allergies Allergy/AdvReac Type Severity Reaction Status Date / Time Sulfa (Sulfonamide Allergy Unknown Rash/Hives Verified 03/29/18 16:06 Antibiotics) Past Medical History Past Medical History: Cancer, Diabetes Mellitus, GERD/Reflux, Hyperlipidemia, Hypertension, Osteoarthritis (OA), Thyroid Disorder Additional Past Medical History / Comment(s): DIET CONTROLLED-DIABETIC , SQUAMOUS CELL -RIGHT LEG History of Any Multi-Drug Resistant Organisms: MRSA Date of last positivie culture/infection: november 2017 MDRO Source:: nose Past Surgical History: Bariatric Surgery, Section, Cholecystectomy, Joint Replacement Additional Past Surgical History / Comment(s): X2, ANNELIESE LEG NERVE SURGERY, GASTRIC [id number]. TOTAL LEFT KNEE Past Anesthesia/Blood Transfusion Reactions: Motion Sickness Additional Past Anesthesia/Blood Transfusion Reaction / Comment(s): HX OF BLOOD TRANSFUSIONS=NO REACTION Past Psychological History: Depression Smoking Status: Former smoker Past Alcohol Use History: Daily Past Drug Use History: None Reported - Past Family History Mother Family Medical History: No Reported History Father Family Medical History: Diabetes Mellitus, Hypertension Current Visit: No Status: Acute Priority: Low Hospital Course: Plan of Care: [She was admitted on a formal voluntary to [address] [facility] for depression and recovering early remission of alcohol binge. She'll be placed on 15 minute checks for safety and usual protocol. Unit. She will be evaluated by medicine, psychiatry, nursing staff, social work and occupational therapy. Should be expected to participate in [facility] milieu therapeutic environment including group activities therapy and medication adherence. Discussed in detail the effects of alcohol and depression on her body and will start with Zoloft 25 mg by mouth daily at bedtime for depression and anxiety and Mirapex for restless leg at 0.5 mg by mouth daily at bedtime] 08/29/2018: Increase MIRAPEX 1.0 MG PO qhs; Zoloft 75 mg po qhs; continue 15 checks for safety and usual protocol per unit. Mental status examination time of discharge: The patient presents alert, pleasant, and cooperative. There calmly seated without any agitated behavior. [She] reports that [her] mood is good. Affect is congruent and euthymic. [She] deny having any suicidal or homicidal ideation intent or plan. [She] denies any auditory or visual hallucinations. There is no evidence of any delusional thought content. [Her] thought process is linear and goal-directed. [Her] speech is fluent and nonpressured. [Her] memory and concentration is grossly intact for the purposes of this session. 08/30/2018: Patient is living with family to visit her her special needs daughter [facility]. Discharge medications sent to [facility]: Discharge Medication List Multivitamins, Thera [Multivitamin (formulary)] 1 tab PO DAILY 08/20/14 [History ] Cholecalciferol [Vitamin D3] 1,000 unit PO DAILY 11/18/17 [History] Garlic 1 tab PO DAILY 11/18/17 [History] Calcium Carbonate [Calcium] 600 mg PO BID 11/23/17 [History] Aspirin [Adult Low Dose Aspirin EC] 81 mg PO DAILY 02/16/18 [History] Acetaminophen Tab [Tylenol] 500 mg PO Q6HR PRN tab 08/22/18 [Rx] Multivitamins, Thera [Multivitamin (formulary)] 1 each PO DAILY@1200 tab [Rx] Thiamine [Vitamin B-1] 100 mg PO DAILY #30 tablet 08/25/18 [Rx] Calcium Carbonate [Tums] 500 mg PO BID chew 08/29/18 [Rx] Levothyroxine Sodium [Synthroid] 112 mcg PO QAM 30 Days #30 tab 08/29/18 [Rx] Lisinopril [Zestril] 20 mg PO DAILY@1700 30 Days #30 tab 08/29/18 [Rx] Loratadine [Claritin] 5 mg PO DAILY tab 08/29/18 [Rx] Metoprolol Succinate (ER) [Toprol XL] 50 mg PO QAM 30 Days #30 tab.er.24h [Rx] Pantoprazole [Protonix] 40 mg PO AC-BRKFST 30 Days #60 tablet. 08/29/18 [Rx] Pramipexole [Mirapex] 1 mg PO 2099 30 Days #30 tab 08/29/18 [Rx] Sertraline [Zoloft] 75 mg PO 2099 30 Days #90 tab 08/29/18 [Rx] Sodium Chloride 0.65% Nasal [Deep Sea (Saline)] 2 spray NASAL QID PRN spray 10/14 [Rx] amLODIPine [Norvasc] 10 mg PO DAILY 30 Days #30 tab 08/29/18 [Rx] Patient Condition at Discharge: Good Plan - Discharge Summary Discharge Rx Participant: Yes New Discharge Prescriptions: New Calcium Carbonate [Tums] 500 mg PO BID chew Loratadine [Claritin] 5 mg PO DAILY tab Pramipexole [Mirapex] 1 mg PO 2099 30 Days #30 tab Sertraline [Zoloft] 75 mg PO 2099 30 Days #90 tab Sodium Chloride 0.65% Nasal [Deep Sea (Saline)] 2 spray NASAL QID PRN spray PRN Reason: Dry Nasal Passages Continue Multivitamins, Thera [Multivitamin (formulary)] 1 tab PO DAILY Garlic 1 tab PO DAILY Cholecalciferol [Vitamin D3] 1,000 unit PO DAILY Calcium Carbonate [Calcium] 600 mg PO BID Aspirin [Adult Low Dose Aspirin EC] 81 mg PO DAILY Acetaminophen Tab [Tylenol] 500 mg PO Q6HR PRN tab PRN Reason: Fever And/ Or Pain Multivitamins, Thera [Multivitamin (formulary)] 1 each PO DAILY@1200 tab Thiamine [Vitamin B-1] 100 mg PO DAILY #30 tablet amLODIPine [Norvasc] 10 mg PO DAILY 30 Days #30 tab Levothyroxine Sodium [Synthroid] 112 mcg PO QAM 30 Days #30 tab Lisinopril [Zestril] 20 mg PO DAILY@1700 30 Days #30 tab Metoprolol Succinate (ER) [Toprol XL] 50 mg PO QAM 30 Days #30 tab.er.24h Pantoprazole [Protonix] 40 mg PO AC-BRKFST 30 Days #60 tablet. Discontinued Melatonin 5 mg PO HS tablet LORazepam [Ativan] 1 mg PO Q6HR PRN tab PRN Reason: Anxiety Discharge Medication List Multivitamins, Thera [Multivitamin (formulary)] 1 tab PO DAILY 08/20/14 [History ] Cholecalciferol [Vitamin D3] 1,000 unit PO DAILY 11/18/17 [History] Garlic 1 tab PO DAILY 11/18/17 [History] Calcium Carbonate [Calcium] 600 mg PO BID 11/23/17 [History] Aspirin [Adult Low Dose Aspirin EC] 81 mg PO DAILY 02/16/18 [History] Acetaminophen Tab [Tylenol] 500 mg PO Q6HR PRN tab 08/22/18 [Rx] Multivitamins, Thera [Multivitamin (formulary)] 1 each PO DAILY@1200 tab [Rx] Thiamine [Vitamin B-1] 100 mg PO DAILY #30 tablet 08/25/18 [Rx] Calcium Carbonate [Tums] 500 mg PO BID chew 08/29/18 [Rx] Levothyroxine Sodium [Synthroid] 112 mcg PO QAM 30 Days #30 tab 08/29/18 [Rx] Lisinopril [Zestril] 20 mg PO DAILY@1700 30 Days #30 tab 08/29/18 [Rx] Loratadine [Claritin] 5 mg PO DAILY tab 08/29/18 [Rx] Metoprolol Succinate (ER) [Toprol XL] 50 mg PO QAM 30 Days #30 tab.er.24h [Rx] Pantoprazole [Protonix] 40 mg PO AC-BRKFST 30 Days #60 tablet.dr 08/29/18 [Rx] Pramipexole [Mirapex] 1 mg PO 2100 30 Days #30 tab 08/29/18 [Rx] Sertraline [Zoloft] 75 mg PO 2100 30 Days #90 tab 08/29/18 [Rx] Sodium Chloride 0.65% Nasal [Deep Sea (Saline)] 2 spray NASAL QID PRN spray 10/14 [Rx] amLODIPine [Norvasc] 10 mg PO DAILY 30 Days #30 tab 08/29/18 [Rx] Follow up Appointment(s)/Referral(s): intake,intake [Other] - 08/31/18 2:00 pm Discharge Disposition: HOME SELF-CARE
[2018-08-29] MEDS: LISINOPRIL 20 MG TAB PO SCH (17:12)
[2018-08-29] MEDS ORDERED: SERTRALINE 25 MG TAB PO SCH (21:00)
[2018-08-29] MEDS ORDERED: PRAMIPEXOLE 1 MG TAB PO SCH (21:00)
[2018-08-30] MEDS: LEVOTHYROXINE 112 MCG TAB PO SCH (06:03)
[2018-08-30 06:41] LABS: Glucose,Whole Blood 137 mg/dL (75-99)
[2018-08-30 07:02] VITALS: TEMP 98.5
[2018-08-30] MEDS: CHOLECALCIFEROL 1,000 UNIT TAB PO SCH (08:12)
[2018-08-30] MEDS: ASPIRIN 81 MG PO SCH (08:13)
[2018-08-30] MEDS: CALCIUM CARBONATE 500 MG CHEWABLE PO SCH (08:13)
[2018-08-30] MEDS: METOPROLOL SUCCINATE (ER) 50 MG TAB.ER.24H PO SCH (08:13)
[2018-08-30] MEDS: amLODIPine 10 MG TAB PO SCH (08:13)
[2018-08-30] MEDS: LORATADINE 10 MG TAB PO SCH (08:13)
[2018-08-30] MEDS: PANTOPRAZOLE 40 MG TABLET PO SCH (08:13)
[2018-08-30] MEDS: ACETAMINOPHEN TAB 500 MG TAB PO PRN (08:14)
[2018-08-30 08:19] VITALS: BP 143/86; PULSE 108; RESP 18
--- NOTE | 2018-08-30 09:18 | P.PN ---
Progress Note - Text Interval history: The patient is found in group she follows me to an interview room. Dr. Heller has made arrangements for her to be discharged today and completed the discharge summary. She will be picked up after 5:30 this afternoon by family. She will [facility] states [facility]. We reviewed her psychotropic medications. She indicates her mood is stable she denies having any suicidal ideation intent or plan. She has been attending groups and attending to her activities of daily living. Mental status exam: The patient is alert she is dressed in hospital gowns hygiene grooming are adequate. Speech is fluent spontaneous nonpressured. She denies having any suicidal ideation intent or plan. She reports no homicidal ideation intent or plan. There is no report of any auditory or visual hallucinations or specific delusions. There is no observed evidence of psychosis. Thought process is linear she demonstrates no tangential thinking loose associations or flight of ideas. She does not appear hypomanic or manic. Affect is appropriately expressive. She demonstrates no verbal or physical aggressiveness. She is oriented to person place and date. Insight and judgment have improved. Plan: The patient will be discharged from the mental health unit today. There is no imminent safety risk she is appropriate for transition of care. She is instructed to return to the hospital with any acute safety concerns. She will be attending a rehab-type program for 3 months. Obviously she is instructed to abstain from any use of alcohol marijuana or illicit drugs as a will elevate her safety risk.
[2018-08-30] MEDS: MULTIVITAMINS, THERA 1 EACH TAB PO SCH (12:31)
[2018-08-30] MEDS: THIAMINE 100 MG TAB PO SCH (12:31)
== END 2018-08-30 16:41 | disposition home or self-care (01) | DRG 881 ==
LOC: 3MHU 08-25 16:52
PROVIDERS: ADMIT Psychiatry & Neurology Psychiatry; ATTEND Psychiatry & Neurology Psychiatry
DX: F32.9 Major depressive disorder, single episode, unspecified (principal); E03.9 Hypothyroidism, unspecified; E11.9 Type 2 diabetes mellitus without complications; E78.5 Hyperlipidemia, unspecified; G25.81 Restless legs syndrome; I10 Essential (primary) hypertension; K21.9 Gastro-esophageal reflux disease without esophagitis; Z79.82 Long term (current) use of aspirin; Z79.890 Hormone replacement therapy; Z79.899 Other long term (current) drug therapy; Z82.49 Family history of ischemic heart disease and other diseases of the circulatory system; Z83.3 Family history of diabetes mellitus; Z87.891 Personal history of nicotine dependence; Z96.641 Presence of right artificial hip joint; Z96.652 Presence of left artificial knee joint; Z98.84 Bariatric surgery status; Z88.2 Allergy status to sulfonamides
CPT/HCPCS: 84443